=== PATIENT | female | born 1960 | race Two or more races ===

== ENCOUNTER 2016-10-03 16:42 | Inpatient (IN) | payer MEDICAID ==
[~2016-10-03] VITALS: Ht 157.5 cm; Wt 69.3 kg
[2016-10-03 17:19] LABS: Basophils # (auto) 0 uL; Basophils % (auto) 0.3 % (0.0-2.0); Eosinophils # (auto) 0.2 uL; Eosinophils % (auto) 2.3 % (0.0-7.0); Hematocrit 38.7 % (36.0-46.0); Hemoglobin 13.4 g/dL (12.2-16.2); Lymphocytes # (auto) 3.1 uL; Lymphocytes % (auto) 33.9 % (10.0-50.0); Mean Corpuscular Hemoglobin 29.5 pg (28.0-32.0); Mean Corpuscular Hgb Conc. 34.6 g/dL (32.0-36.0); Mean Corpuscular Volume 85.1 fL (80.0-100.0); Mean Platelet Volume 9.3 fL (7.4-10.4); Monocytes # (auto) 0.5 uL; Neutrophils # (auto) 5.4 uL; Neutrophils % (auto) 58.5 % (37.0-80.0); Platelet Count (auto) 217 10^3/uL (140-450); Red Cell Distribution Width 12.9 % (11.6-16.0); White Blood Cell 9.3 10^3/uL (4.4-10.8)
[2016-10-03 17:39] LABS: Albumin 3.7 g/dL (3.4-5.0); Anion Gap 11 (5-15); Aspartate Aminotransferase 8 U/L (15-37); BUN/Creatinine Ratio 20.4; Blood Urea Nitrogen 10 mg/dL (7-18); Calcium 8.8 mg/dL (8.5-10.1); Carbon Dioxide 24 mmol/L (21-32); Chloride 102 mmol/L (98-107); GFR African American 169 mL/min; GFR Non-African American 139 mL/min; Glucose 283 mg/dL (74-106); Potassium 3.7 mmol/L (3.5-5.1); Sodium 137 mmol/L (136-145)
[2016-10-03 17:43] LABS: Alkaline Phosphatase 123 U/L (45-117); Bilirubin, Total 0.6 mg/dL (0.2-1.0); Total Protein 7.3 g/dL (6.4-8.2)
[2016-10-03] MEDS ORDERED: ACETAMINOPHEN 325 MG TAB PO PRN (23:30)
[2016-10-03] MEDS ORDERED: DEXTROSE (50%) 50ML SYRG IV PRN (23:30)
[2016-10-03] MEDS ORDERED: MORPHINE SULF INJ 2 MG/ML SYRINGE 1ML IV PRN (23:30)
[2016-10-03] MEDS ORDERED: NITROGLYCERIN 0.4 MG SL TAB SL PRN (23:30)
[2016-10-03 23:55] VITALS: BP 142/69
[2016-10-04] MEDS: ACCU-CHEK COMFORT CURVE STRIP VI SCH ×5 (00:17→23:33)
[2016-10-04] MEDS: HYDROcodone-ACET 5/325MG TAB PO PRN ×2 (00:47→21:18)
[2016-10-04] MEDS: TEMAZEPAM 15 MG CAP PO PRN ×2 (01:12→23:10)
[2016-10-04 02:35] VITALS: BP 142/69
[2016-10-04] MEDS ORDERED: METF-312 PO (02:43)
[2016-10-04] MEDS ORDERED: ASPI81TA27 PO (02:43)
[2016-10-04] MEDS ORDERED: GLYB5TAB8 PO (02:43)
[2016-10-04] MEDS ORDERED: SIMV-8 PO (02:43)
[2016-10-04] MEDS ORDERED: LISI-275 PO (02:43)
[2016-10-04 04:27] VITALS: BP 117/59
[2016-10-04] MEDS: InsuLIN REG 1unit/0.01ml Soln (100units/ml) SC SCH ×5 (06:00→23:33)
[2016-10-04 06:24] LABS: Basophils # (auto) 0 uL; Basophils % (auto) 0.3 % (0.0-2.0); Eosinophils # (auto) 0.2 uL; Eosinophils % (auto) 2.8 % (0.0-7.0); Hematocrit 38.9 % (36.0-46.0); Hemoglobin 13.5 g/dL (12.2-16.2); Lymphocytes # (auto) 3.3 uL; Lymphocytes % (auto) 37.4 % (10.0-50.0); Mean Corpuscular Hemoglobin 29.7 pg (28.0-32.0); Mean Corpuscular Hgb Conc. 34.7 g/dL (32.0-36.0); Mean Corpuscular Volume 85.6 fL (80.0-100.0); Monocytes # (auto) 0.5 uL; Monocytes % (auto) 6.2 % (0.0-12.0); Neutrophils # (auto) 4.7 uL; Neutrophils % (auto) 53.3 % (37.0-80.0); Platelet Count (auto) 215 10^3/uL (140-450); White Blood Cell 8.8 10^3/uL (4.4-10.8)
[2016-10-04] MEDS ORDERED: glyBURIDE 5 MG TAB PO SCH (07:00)
[2016-10-04 07:05] LABS: Albumin 3.4 g/dL (3.4-5.0); Alkaline Phosphatase 103 U/L (45-117); Anion Gap 9 (5-15); Aspartate Aminotransferase 12 U/L (15-37); BUN/Creatinine Ratio 25.9; Bilirubin, Total 0.4 mg/dL (0.2-1.0); Blood Urea Nitrogen 15 mg/dL (7-18); Calcium 8.8 mg/dL (8.5-10.1); Carbon Dioxide 28 mmol/L (21-32); Chloride 104 mmol/L (98-107); GFR African American 139 mL/min; GFR Non-African American 115 mL/min; Glucose 270 mg/dL (74-106); Potassium 3.6 mmol/L (3.5-5.1); Sodium 141 mmol/L (136-145)
[2016-10-04 08:50] VITALS: BP 118/64
[2016-10-04] MEDS: FAMOTIDINE 20 MG TAB PO SCH ×2 (09:24→21:37)
[2016-10-04] MEDS: LISINOPRIL 5 MG TAB PO SCH (09:25)
[2016-10-04] MEDS ORDERED: ASPirin 81 mg TAB PO SCH (10:00)
[2016-10-04] MEDS ORDERED: ENOXAPARIN SOD 40 MG/0.4 ML SYRINGE SC SCH (10:00)
[2016-10-04 11:37] LABS: Cholesterol 195 mg/dL (<200); HDL Cholesterol 49 mg/dL (40-59); LDL Cholesterol 121 mg/dL (<100); Triglycerides 216 mg/dL (<150)
[2016-10-04 12:23] VITALS: BP 119/69
[2016-10-04 16:47] VITALS: BP 103/64
[2016-10-04] MEDS ORDERED: metFORMIN HYDROCHLORIDE 500 MG TAB PO SCH (18:00)
[2016-10-04] MEDS: glyBURIDE 5 MG TAB PO SCH (18:30)
[2016-10-04 21:30] VITALS: BP 100/61
[2016-10-04] MEDS: PRAVASTATIN SODIUM 20 MG TAB PO SCH (21:37)
[2016-10-04] MEDS ORDERED: PATIENTS OWN MEDICATION (simvastatin 20 MG) PO SCH ×2 (22:00)
[2016-10-05] VITALS (8 sets, daily range): BP systolic 104–155; BP diastolic 50–88
[2016-10-05 05:46] LABS: Basophils # (auto) 0 uL; Basophils % (auto) 0.3 % (0.0-2.0); Eosinophils # (auto) 0.3 uL; Eosinophils % (auto) 3.6 % (0.0-7.0); Hematocrit 39.8 % (36.0-46.0); Hemoglobin 13.4 g/dL (12.2-16.2); Lymphocytes # (auto) 3.4 uL; Lymphocytes % (auto) 38.8 % (10.0-50.0); Mean Corpuscular Hemoglobin 29.3 pg (28.0-32.0); Mean Corpuscular Hgb Conc. 33.7 g/dL (32.0-36.0); Mean Corpuscular Volume 86.8 fL (80.0-100.0); Mean Platelet Volume 9.5 fL (7.4-10.4); Monocytes # (auto) 0.6 uL; Monocytes % (auto) 6.9 % (0.0-12.0); Neutrophils # (auto) 4.4 uL; Neutrophils % (auto) 50.4 % (37.0-80.0); Platelet Count (auto) 216 10^3/uL (140-450); Red Cell Distribution Width 13.2 % (11.6-16.0); White Blood Cell 8.7 10^3/uL (4.4-10.8)
[2016-10-05] MEDS: ACCU-CHEK COMFORT CURVE STRIP VI SCH ×3 (05:49→18:23)
[2016-10-05] MEDS: InsuLIN REG 1unit/0.01ml Soln (100units/ml) SC SCH ×3 (05:49→18:00)
[2016-10-05] MEDS: glyBURIDE 5 MG TAB PO SCH ×2 (06:04→18:23)
[2016-10-05 06:11] LABS: Potassium 3.5 mmol/L (3.5-5.1)
[2016-10-05 06:18] LABS: Albumin 3.4 g/dL (3.4-5.0); Calcium 9.1 mg/dL (8.5-10.1); Magnesium 2.2 mg/dL (1.6-2.6)
[2016-10-05 06:21] LABS: Bilirubin, Total 0.4 mg/dL (0.2-1.0); Total Protein 6.8 g/dL (6.4-8.2)
[2016-10-05] MEDS ORDERED: IOHEXOL 350 MG/ML 100ML IJ ONE (08:56)
[2016-10-05] MEDS ORDERED: METOPROLOL TARTRATE 1MG/1ML-5ML VIAL IV ONE ×2 (09:31→09:37)
[2016-10-05] MEDS ORDERED: NITROGLYCERIN 0.4 MG SL TAB SL ONE (09:31)
[2016-10-05] MEDS: FAMOTIDINE 20 MG TAB PO SCH ×2 (10:58→22:17)
[2016-10-05] MEDS: LISINOPRIL 5 MG TAB PO SCH (10:59)
[2016-10-05] MEDS ORDERED: POTASSIUM CHL 20 Meq TABLET PO ONE (11:45)
[2016-10-05] MEDS: HYDROcodone-ACET 5/325MG TAB PO PRN (14:04)
[2016-10-05] MEDS ORDERED: HYDROmorphone HCL 2 MG/ML VL IV PRN (16:30)
[2016-10-05] MEDS: ONDANSETRON HCL 4 MG/2 ML VIAL IV PRN (18:23)
[2016-10-05] MEDS ORDERED: ASPirin 81 mg TAB PO ONE (19:00)
[2016-10-05] MEDS ORDERED: METOPROLOL SUCCINATE XL 50 MG TAB PO ONE (19:00)
[2016-10-05] MEDS: PRAVASTATIN SODIUM 20 MG TAB PO SCH (22:17)
[2016-10-06] MEDS: InsuLIN REG 1unit/0.01ml Soln (100units/ml) SC SCH ×4 (00:22→18:00)
[2016-10-06] MEDS: ACCU-CHEK COMFORT CURVE STRIP VI SCH ×4 (00:22→17:59)
[2016-10-06 05:28] VITALS: BP 111/54
[2016-10-06 05:41] LABS: Basophils # (auto) 0 uL; Basophils % (auto) 0.3 % (0.0-2.0); Eosinophils # (auto) 0.1 uL; Eosinophils % (auto) 0.5 % (0.0-7.0); Lymphocytes # (auto) 2.6 uL; Lymphocytes % (auto) 23.3 % (10.0-50.0); Mean Corpuscular Hemoglobin 29.6 pg (28.0-32.0); Mean Corpuscular Hgb Conc. 34.3 g/dL (32.0-36.0); Mean Corpuscular Volume 86.3 fL (80.0-100.0); Mean Platelet Volume 9.5 fL (7.4-10.4); Monocytes # (auto) 0.5 uL; Monocytes % (auto) 4.7 % (0.0-12.0); Neutrophils # (auto) 7.8 uL; Neutrophils % (auto) 71.2 % (37.0-80.0); Platelet Count (auto) 227 10^3/uL (140-450)
[2016-10-06 06:04] LABS: Albumin 3.2 g/dL (3.4-5.0); Calcium 9.1 mg/dL (8.5-10.1); Potassium 3.9 mmol/L (3.5-5.1)
[2016-10-06 06:07] LABS: BUN/Creatinine Ratio 38.7; Magnesium 2.3 mg/dL (1.6-2.6)
[2016-10-06 06:09] LABS: Bilirubin, Total 0.4 mg/dL (0.2-1.0); Total Protein 6.6 g/dL (6.4-8.2)
[2016-10-06] MEDS: glyBURIDE 5 MG TAB PO SCH (06:22)
[2016-10-06 08:00] VITALS: BP 131/59
[2016-10-06 08:43] VITALS: BP 131/59
[2016-10-06] MEDS: ONDANSETRON HCL 4 MG/2 ML VIAL IV PRN ×2 (08:59→14:42)
[2016-10-06] MEDS: HYDROcodone-ACET 5/325MG TAB PO PRN ×2 (09:00→14:42)
[2016-10-06] MEDS ORDERED: METOPROLOL SUCCINATE XL 50 MG TAB PO SCH (10:00)
[2016-10-06] MEDS ORDERED: ASPirin 81 mg TAB PO SCH (10:00)
[2016-10-06] MEDS: LISINOPRIL 5 MG TAB PO SCH (10:57)
[2016-10-06] MEDS: FAMOTIDINE 20 MG TAB PO SCH (10:59)
[2016-10-06 13:19] VITALS: BP 135/70
[2016-10-06] MEDS: metFORMIN HYDROCHLORIDE 500 MG TAB PO SCH ×2 (14:48→17:57)
[2016-10-06] MEDS ORDERED: TRAM50TA2 PO (15:42)
[2016-10-06 17:27] VITALS: BP 131/59
[2016-10-06 17:31] VITALS: BP 108/54
[2016-10-06] MEDS ORDERED: glyBURIDE 5 MG TAB PO SCH (18:00)
== END 2016-10-06 19:00 | disposition home or self-care (01) | DRG 198 ==
LOC: ER 16:50 → TELE 16:51 → TELE-WESTW 23:41
PROVIDERS: ADMIT Nurse Practitioner; ATTEND Internal Medicine
DX: I25.119 Atherosclerotic heart disease of native coronary artery with unspecified angina pectoris (principal); E11.65 Type 2 diabetes mellitus with hyperglycemia; S82.001A Unspecified fracture of right patella, initial encounter for closed fracture; E78.5 Hyperlipidemia, unspecified; M25.461 Effusion, right knee; W19.XXXA Unspecified fall, initial encounter; Z86.73 Personal history of transient ischemic attack (TIA), and cerebral infarction without residual deficits; Y93.89 Activity, other specified; Y92.89 Other specified places as the place of occurrence of the external cause; Z90.49 Acquired absence of other specified parts of digestive tract
CPT/HCPCS: 36415; 71010; 73560; 73700; 75574; 80053; 80061; 82962; 83036; 83735; 84443; 84484; 85025; 87081; 93005; 93306; 94761; J1815; J2405

== ENCOUNTER 2016-12-05 18:12 | Emergency (ER) | payer MEDICAID ==
[~2016-12-05] VITALS: Ht 157.5 cm; Wt 65.3 kg
[~2016-12-05 18:12] MED LIST: ASPI81TA27 PO; LISI-275 PO; SIMV-8 PO; TRAM50TA2 PO
[2016-12-05 18:32] VITALS: BP 147/50
[2016-12-05] MEDS ORDERED: IBUPROFEN 600 MG TAB PO ONE ×2 (18:34→18:45)
== END 2016-12-05 21:20 | disposition home or self-care (01) ==
LOC: ER 18:21
DX: S86.911A Strain of unspecified muscle(s) and tendon(s) at lower leg level, right leg, initial encounter (principal); E11.9 Type 2 diabetes mellitus without complications; E78.5 Hyperlipidemia, unspecified; W01.0XXA Fall on same level from slipping, tripping and stumbling without subsequent striking against object, initial encounter; Y93.73 Activity, racquet and hand sports; Y99.8 Other external cause status; Y92.89 Other specified places as the place of occurrence of the external cause; Z86.73 Personal history of transient ischemic attack (TIA), and cerebral infarction without residual deficits; Z79.82 Long term (current) use of aspirin
CPT/HCPCS: 29505; 73562

== ENCOUNTER 2017-02-23 16:48 | Emergency (ER) | payer MEDICAID ==
[~2017-02-23] VITALS: Ht 157.5 cm; Wt 66.7 kg
[2017-02-23 17:00] VITALS: BP 145/61
[2017-02-23 17:34] LABS: Basophils # (auto) 0 uL; Basophils % (auto) 0.3 % (0.0-2.0); CONDITION Y; Eosinophils # (auto) 0 uL; Eosinophils % (auto) 0.2 % (0.0-7.0); Hematocrit 42.5 % (36.0-46.0); Hemoglobin 14.8 g/dL (12.2-16.2); Lymphocytes # (auto) 1.5 uL; Lymphocytes % (auto) 15.7 % (10.0-50.0); Mean Corpuscular Hemoglobin 30.4 pg (28.0-32.0); Mean Corpuscular Hgb Conc. 34.7 g/dL (32.0-36.0); Mean Corpuscular Volume 87.4 fL (80.0-100.0); Mean Platelet Volume 9.5 fL (7.4-10.4); Monocytes # (auto) 0.5 uL; Monocytes % (auto) 4.8 % (0.0-12.0); Neutrophils # (auto) 7.7 uL; Platelet Count (auto) 196 10^3/uL (140-450); Red Cell Distribution Width 13.5 % (11.6-16.0); White Blood Cell 9.7 10^3/uL (4.4-10.8)
[2017-02-23 17:55] LABS: Albumin 3.7 g/dL (3.4-5.0); Anion Gap 11 (5-15); Aspartate Aminotransferase 18 U/L (15-37); BUN/Creatinine Ratio 14.5; Blood Urea Nitrogen 11 mg/dL (7-18); Carbon Dioxide 25 mmol/L (21-32); Chloride 100 mmol/L (98-107); GFR African American 102 mL/min; GFR Non-African American 84 mL/min; Glucose 310 mg/dL (74-106); Magnesium 1.7 mg/dL (1.6-2.6); Potassium 3.8 mmol/L (3.5-5.1); Sodium 136 mmol/L (136-145)
[2017-02-23 18:00] LABS: Alkaline Phosphatase 128 U/L (45-117); Bilirubin, Total 0.6 mg/dL (0.2-1.0)
== END 2017-02-23 21:48 | disposition left against medical advice (07) ==
LOC: ER 16:49
DX: M54.5 Low back pain (principal); M54.2 Cervicalgia; Z53.21 Procedure and treatment not carried out due to patient leaving prior to being seen by health care provider
CPT/HCPCS: 36415; 80053; 83735; 84484; 85025

== ENCOUNTER 2017-03-19 11:35 | Emergency (ER) | payer MEDICAID ==
[~2017-03-19] VITALS: Ht 157.5 cm; Wt 64.4 kg
[2017-03-19 12:21] VITALS: BP 147/57
== END 2017-03-19 12:39 | disposition home or self-care (01) ==
LOC: ER 11:35
DX: J20.9 Acute bronchitis, unspecified (principal); J32.0 Chronic maxillary sinusitis; Z86.73 Personal history of transient ischemic attack (TIA), and cerebral infarction without residual deficits; E11.9 Type 2 diabetes mellitus without complications; E78.5 Hyperlipidemia, unspecified; Z79.82 Long term (current) use of aspirin

== ENCOUNTER 2017-07-07 14:05 | Emergency (ER) | payer MEDICAID ==
[~2017-07-07] VITALS: Ht 157.5 cm; Wt 67.1 kg
[2017-07-07 16:46] VITALS: BP 139/49
[2017-07-07] MEDS ORDERED: KETOROLAC TROMETH 60MG/2ML VIAL IM ONE (17:30)
== END 2017-07-07 18:21 | disposition home or self-care (01) ==
LOC: ER 14:05
DX: E11.40 Type 2 diabetes mellitus with diabetic neuropathy, unspecified (principal); E78.5 Hyperlipidemia, unspecified; Z86.73 Personal history of transient ischemic attack (TIA), and cerebral infarction without residual deficits; Z79.82 Long term (current) use of aspirin; Z79.899 Other long term (current) drug therapy
CPT/HCPCS: 96372; 99283; J1885

== ENCOUNTER 2017-07-18 08:06 | Emergency (ER) | payer MEDICAID ==
[~2017-07-18] VITALS: Ht 157.5 cm; Wt 66.7 kg
[2017-07-18 08:26] VITALS: BP 121/55
[2017-07-18] MEDS ORDERED: KETOROLAC TROMETH 60MG/2ML VIAL IM ONE (08:45)
[2017-07-18] MEDS ORDERED: METHOCARBAMOL 500 MG TAB PO ONE (09:00)
== END 2017-07-18 09:27 | disposition home or self-care (01) ==
LOC: ER 08:06
DX: M47.816 Spondylosis without myelopathy or radiculopathy, lumbar region (principal); E11.9 Type 2 diabetes mellitus without complications; E78.5 Hyperlipidemia, unspecified; Z86.73 Personal history of transient ischemic attack (TIA), and cerebral infarction without residual deficits; Z79.82 Long term (current) use of aspirin
CPT/HCPCS: 72131; 96372; 99284; J1885

== ENCOUNTER 2017-09-24 00:13 | Inpatient (IN) | payer MEDICAID ==
[~2017-09-24] VITALS: Ht 157.5 cm; Wt 69.9 kg
[2017-09-24 01:20] LABS: Basophils # (auto) 0.1 uL; Basophils % (auto) 0.5 % (0.0-2.0); Eosinophils # (auto) 0.2 uL; Eosinophils % (auto) 1.8 % (0.0-7.0); Hematocrit 40.7 % (36.0-46.0); Hemoglobin 14.1 g/dL (12.2-16.2); Lymphocytes # (auto) 4.6 uL; Lymphocytes % (auto) 37.7 % (10.0-50.0); Mean Corpuscular Hemoglobin 29.7 pg (28.0-32.0); Mean Corpuscular Hgb Conc. 34.7 g/dL (32.0-36.0); Mean Corpuscular Volume 85.5 fL (80.0-100.0); Monocytes # (auto) 0.6 uL; Monocytes % (auto) 5.3 % (0.0-12.0); Neutrophils # (auto) 6.6 uL; Neutrophils % (auto) 54.7 % (37.0-80.0); Nucleated Red Blood Cells % 0.2 %; Platelet Count (auto) 249 10^3/uL (140-450); Red Blood Cells 4.76 10^6/uL (4.0-5.20); Red Cell Distribution Width 13.3 % (11.8-14.3); White Blood Cell 12.1 10^3/uL (4.4-10.8)
[2017-09-24 01:37] LABS: INR 0.83 (0.9-1.15); Partial Thromboplastin Time 27.1 sec (22.64-33.71)
[2017-09-24 01:51] LABS: Albumin 4.1 g/dL (3.4-5.0); Anion Gap 11 (5-15); Blood Urea Nitrogen 19 mg/dL (7-18); Calcium 9.5 mg/dL (8.5-10.1); Carbon Dioxide 24 mmol/L (21-32); Chloride 100 mmol/L (98-107); Glucose 314 mg/dL (74-106); Magnesium 1.9 mg/dL (1.6-2.6); Potassium 3.8 mmol/L (3.5-5.1); Sodium 135 mmol/L (136-145)
[2017-09-24 01:54] LABS: Alanine Aminotransferase 20 U/L (13-56); Aspartate Aminotransferase 10 U/L (15-37); BUN/Creatinine Ratio 18.6; GFR African American 72 mL/min; GFR Non-African American 60 mL/min
[2017-09-24 02:08] LABS: Alkaline Phosphatase 114 U/L (45-117); Bilirubin, Total 0.4 mg/dL (0.2-1.0); Total Protein 8.1 g/dL (6.4-8.2)
[2017-09-24] MEDS ORDERED: SODIUM CHLORIDE 0.9% 1,000 ML IV ONE (07:39)
[2017-09-24] MEDS ORDERED: NITROGLYCERIN 0.4 MG SL TAB SL ONE (08:15)
[2017-09-24 09:02] LABS: Magnesium 2.2 mg/dL (1.6-2.6)
[2017-09-24] MEDS ORDERED: DEXTROSE (50%) 50ML SYRG IV PRN ×2 (11:15)
[2017-09-24] MEDS ORDERED: PROMETHAZINE HCL 25 MG/ML 1ML IV PRN (11:15)
[2017-09-24] MEDS ORDERED: TEMAZEPAM 15 MG CAP PO PRN (11:15)
[2017-09-24] MEDS ORDERED: LORazepam 0.5 MG TAB PO PRN (11:15)
[2017-09-24] MEDS ORDERED: LACTULOSE 20Gm/30ML SOLN PO PRN (11:15)
[2017-09-24] MEDS ORDERED: ACETAMINOPHEN 500 MG TAB PO PRN (11:15)
[2017-09-24] MEDS ORDERED: NITROGLYCERIN 0.4 MG SL TAB SL PRN (11:15)
[2017-09-24] MEDS ORDERED: MORPHINE SULFATE 4 MG/ML SYR/VIAL IV PRN (11:15)
[2017-09-24] MEDS ORDERED: HYDROcodone-ACET 5/325MG TAB PO PRN (11:15)
[2017-09-24] MEDS: SODIUM CHLORIDE 0.9% 1,000 ML IV SCH (11:26)
[2017-09-24 11:42] LABS: Alcohol, Urine < 3.0 mg/dL (0-5); Amphetamine Screen, Urine NEGATIVE (NEGATIVE); Barbiturate Scree,Urine NEGATIVE (NEGATIVE); Benzodiazephine Screen, Urine NEGATIVE (NEGATIVE); Cannabinoid Screen, Urine NEGATIVE (NEGATIVE); Cocaine Screen, Urine NEGATIVE (NEGATIVE); Opiate Scree,Urine NEGATIVE (NEGATIVE); Phencyclidine Screen, Urine NEGATIVE (NEGATIVE)
[2017-09-24] MEDS: METOPROLOL TARTRATE 25 MG TAB PO SCH ×2 (11:54→22:16)
[2017-09-24] MEDS: ACCU-CHEK COMFORT CURVE STRIP VI SCH ×3 (11:54→19:57)
[2017-09-24] MEDS: NITROGLYCERIN 0.2MG/HR TOPICAL PATCH TD SCH (11:54)
[2017-09-24] MEDS: LISINOPRIL 5 MG TAB PO SCH (11:55)
[2017-09-24] MEDS: ATORVASTATIN 20 MG TAB PO SCH (11:55)
[2017-09-24] MEDS: InsuLIN REG 1unit/0.01ml Soln (100units/ml) SC SCH ×3 (11:58→20:02)
[2017-09-24 13:00] VITALS: BP 143/73
[2017-09-24 13:07] VITALS: BP 127/59
[2017-09-24] MEDS ORDERED: METF-370 PO (13:22)
[2017-09-24 17:00] VITALS: BP 97/49
[2017-09-24] MEDS: MORPHINE SULFATE 4 MG/ML SYR/VIAL IV PRN (19:58)
[2017-09-24 22:00] VITALS: BP 110/65
[2017-09-25] MEDS: ACCU-CHEK COMFORT CURVE STRIP VI SCH ×3 (00:02→08:21)
[2017-09-25] MEDS: SODIUM CHLORIDE 0.9% 1,000 ML IV SCH (00:22)
[2017-09-25] MEDS: InsuLIN REG 1unit/0.01ml Soln (100units/ml) SC SCH ×3 (04:32→08:22)
[2017-09-25 05:00] VITALS: BP 123/70
[2017-09-25 08:00] VITALS: BP 130/65
[2017-09-25 08:06] LABS: Basophils # (auto) 0 uL; Basophils % (auto) 0.2 % (0.0-2.0); Eosinophils # (auto) 0.2 uL; Eosinophils % (auto) 2.8 % (0.0-7.0); Hematocrit 34.4 % (36.0-46.0); Hemoglobin 12.1 g/dL (12.2-16.2); Lymphocytes # (auto) 3.8 uL; Lymphocytes % (auto) 46.8 % (10.0-50.0); Mean Corpuscular Hemoglobin 29.9 pg (28.0-32.0); Mean Corpuscular Hgb Conc. 35.2 g/dL (32.0-36.0); Mean Corpuscular Volume 84.9 fL (80.0-100.0); Monocytes # (auto) 0.4 uL; Monocytes % (auto) 5.4 % (0.0-12.0); Neutrophils # (auto) 3.6 uL; Neutrophils % (auto) 44.8 % (37.0-80.0); Nucleated Red Blood Cells % 0.1 %; Platelet Count (auto) 187 10^3/uL (140-450); Red Blood Cells 4.04 10^6/uL (4.0-5.20); Red Cell Distribution Width 13.3 % (11.8-14.3); White Blood Cell 8.1 10^3/uL (4.4-10.8)
[2017-09-25] MEDS: MORPHINE SULFATE 4 MG/ML SYR/VIAL IV PRN (08:30)
[2017-09-25 08:50] VITALS: BP 130/65
[2017-09-25 08:50] LABS: Albumin 3.2 g/dL (3.4-5.0); BUN/Creatinine Ratio 35.6; Bilirubin, Total 0.3 mg/dL (0.2-1.0); Calcium 8.9 mg/dL (8.5-10.1); Potassium 3.8 mmol/L (3.5-5.1); Total Protein 6.5 g/dL (6.4-8.2)
[2017-09-25] MEDS ORDERED: glipiZIDE 5 MG TAB PO SCH (09:45)
[2017-09-25] MEDS ORDERED: GLIP-116 PO (09:47)
[2017-09-25] MEDS ORDERED: ENOXAPARIN SOD 40 MG/0.4 ML SYRINGE SC SCH (10:00)
[2017-09-25] MEDS: METOPROLOL TARTRATE 25 MG TAB PO SCH ×2 (10:00→10:06)
[2017-09-25] MEDS ORDERED: ASPirin-EC 81 mg tab PO SCH (10:00)
[2017-09-25] MEDS: NITROGLYCERIN 0.2MG/HR TOPICAL PATCH TD SCH (10:00)
[2017-09-25] MEDS: ATORVASTATIN 20 MG TAB PO SCH (10:00)
[2017-09-25] MEDS: LISINOPRIL 5 MG TAB PO SCH (10:07)
[2017-09-25 10:56] VITALS: BP 130/65
[2017-09-25 11:00] VITALS: BP 117/55
== END 2017-09-25 13:10 | disposition home or self-care (01) | DRG 351 ==
LOC: ER 00:13 → TELE-DOU 00:14 → TELE-EAST 12:10
PROVIDERS: ADMIT Internal Medicine; ATTEND Internal Medicine
DX: M79.1 Myalgia (principal); E11.65 Type 2 diabetes mellitus with hyperglycemia; M25.512 Pain in left shoulder; D72.829 Elevated white blood cell count, unspecified; E66.3 Overweight; K59.00 Constipation, unspecified; F41.9 Anxiety disorder, unspecified; G47.00 Insomnia, unspecified; E78.5 Hyperlipidemia, unspecified; M54.9 Dorsalgia, unspecified; M25.511 Pain in right shoulder; Z68.28 Body mass index [BMI] 28.0-28.9, adult; Z82.3 Family history of stroke; Z82.49 Family history of ischemic heart disease and other diseases of the circulatory system; Z83.3 Family history of diabetes mellitus; Z86.73 Personal history of transient ischemic attack (TIA), and cerebral infarction without residual deficits; Z79.899 Other long term (current) drug therapy; Z90.49 Acquired absence of other specified parts of digestive tract
CPT/HCPCS: 36415; 71046; 80053; 80061; 80307; 82550; 82962; 83036; 83735; 84443; 84484; 85025; 85379; 85610; 85652; 85730; 86141; 93005; 94761; 96372; J1815

== ENCOUNTER 2018-03-12 21:15 | Inpatient (IN) | payer MEDICAID ==
[~2018-03-12] VITALS: Ht 157.5 cm; Wt 67.5 kg
[~2018-03-12 21:15] MED LIST changes: +GLIP-116 PO; +METF-370 PO
[2018-03-12] MEDS ORDERED: IOHEXOL 350 MG/ML 100ML IJ ONE (21:53)
[2018-03-12 22:10] LABS: Basophils # (auto) 0 uL; Basophils % (auto) 0.4 % (0.0-2.0); Eosinophils # (auto) 0.1 uL; Eosinophils % (auto) 1.4 % (0.0-7.0); Hematocrit 42.5 % (36.0-46.0); Hemoglobin 14.6 g/dL (12.2-16.2); Lymphocytes # (auto) 3.3 uL; Lymphocytes % (auto) 34.4 % (10.0-50.0); Mean Corpuscular Hemoglobin 29.9 pg (28.0-32.0); Mean Corpuscular Hgb Conc. 34.3 g/dL (32.0-36.0); Mean Corpuscular Volume 87.3 fL (80.0-100.0); Monocytes # (auto) 0.4 uL; Monocytes % (auto) 4.2 % (0.0-12.0); Neutrophils # (auto) 5.6 uL; Neutrophils % (auto) 59.6 % (37.0-80.0); Nucleated Red Blood Cells % 0.2 %; Platelet Count (auto) 196 10^3/uL (140-450); Red Blood Cells 4.87 10^6/uL (4.0-5.20); Red Cell Distribution Width 13.4 % (11.8-14.3); White Blood Cell 9.5 10^3/uL (4.4-10.8)
[2018-03-12 22:29] LABS: INR 0.88 (0.9-1.15); Partial Thromboplastin Time 27.8 sec (23.78-33.04); Prothrombin Time 9.5 sec (9.27-12.13)
[2018-03-12 22:37] LABS: Albumin 3.7 g/dL (3.4-5.0); Potassium 4.4 mmol/L (3.5-5.1)
[2018-03-12 22:39] LABS: Bilirubin, Total 0.5 mg/dL (0.2-1.0); Total Protein 7.7 g/dL (6.4-8.2)
[2018-03-12 23:16] LABS: BUN/Creatinine Ratio 25.8
[2018-03-13] MEDS ORDERED: InsuLIN REG 1unit/0.01ml Soln (100units/ml) IV ONE ×2 (00:30)
[2018-03-13] MEDS ORDERED: SODIUM CHLORIDE 0.9% 1,000 ML IV ONE ×2 (00:30→05:00)
[2018-03-13] MEDS ORDERED: IOHEXOL 350 MG/ML 100ML IJ ONE (00:37)
[2018-03-13] MEDS ORDERED: HYDROcodone-ACET 10/325MG TAB PO ONE (00:45)
[2018-03-13] MEDS ORDERED: metFORMIN HYDROCHLORIDE 500 MG TAB PO ONE (03:45)
[2018-03-13] MEDS ORDERED: ONDANSETRON HCL 4 MG/2 ML VIAL IV PRN (05:00)
[2018-03-13] MEDS ORDERED: INSULIN LANTUS (GLARGINE) 1 /0.01ml (100units/ml) SC SCH (05:00)
[2018-03-13] MEDS ORDERED: HYDROcodone-ACET 5/325MG TAB PO PRN (05:00)
[2018-03-13] MEDS ORDERED: DEXTROSE (50%) 50ML SYRG IV PRN ×2 (05:00→10:15)
[2018-03-13] MEDS ORDERED: ACETAMINOPHEN 500 MG TAB PO PRN (05:00)
[2018-03-13] MEDS ORDERED: INSULIN LANTUS (GLARGINE) 1 /0.01ml (100units/ml) SC ONE (05:15)
[2018-03-13] MEDS ORDERED: glipiZIDE 5 MG TAB PO SCH (07:00)
[2018-03-13] MEDS ORDERED: SODIUM CHLORIDE 0.9% 1,000 ML IV SCH (07:45)
[2018-03-13 07:55] LABS: Basophils # (auto) 0 uL; Basophils % (auto) 0.2 % (0.0-2.0); Eosinophils # (auto) 0.2 uL; Hematocrit 38.3 % (36.0-46.0); Hemoglobin 13.2 g/dL (12.2-16.2); Lymphocytes # (auto) 3.5 uL; Lymphocytes % (auto) 44.4 % (10.0-50.0); Mean Corpuscular Hemoglobin 29.6 pg (28.0-32.0); Mean Corpuscular Hgb Conc. 34.5 g/dL (32.0-36.0); Mean Corpuscular Volume 85.8 fL (80.0-100.0); Monocytes # (auto) 0.4 uL; Monocytes % (auto) 5.5 % (0.0-12.0); Neutrophils # (auto) 3.7 uL; Neutrophils % (auto) 46.9 % (37.0-80.0); Platelet Count (auto) 154 10^3/uL (140-450); Red Blood Cells 4.46 10^6/uL (4.0-5.20); Red Cell Distribution Width 13.3 % (11.8-14.3); White Blood Cell 7.8 10^3/uL (4.4-10.8)
[2018-03-13 08:09] LABS: Potassium 3.5 mmol/L (3.5-5.1)
[2018-03-13 08:10] LABS: INR 0.92 (0.9-1.15); Partial Thromboplastin Time 28.9 sec (23.78-33.04); Prothrombin Time 9.9 sec (9.27-12.13)
[2018-03-13] MEDS ORDERED: GLYB5TAB8 PO (08:57)
[2018-03-13 09:00] VITALS: BP 158/84
[2018-03-13] MEDS ORDERED: LISINOPRIL 5 MG TAB PO SCH ×2 (10:00)
[2018-03-13] MEDS ORDERED: ASPirin-EC 81 mg tab PO SCH ×2 (10:00)
[2018-03-13] MEDS ORDERED: GABAPENTIN 100 MG CAP PO SCH (10:00)
[2018-03-13] MEDS ORDERED: LISINOPRIL 5 MG TAB PO ONE (10:30)
[2018-03-13] MEDS ORDERED: InsuLIN REG 1unit/0.01ml Soln (100units/ml) SC SCH ×2 (11:30→22:00)
[2018-03-13] MEDS ORDERED: ACCU-CHEK COMFORT CURVE STRIP VI SCH (11:30)
[2018-03-13 12:36] VITALS: BP 125/66
[2018-03-13 13:00] VITALS: BP 125/66
[2018-03-14] MEDS ORDERED: LISINOPRIL 20 MG TAB PO SCH (10:00)
== END 2018-03-13 13:55 | disposition home or self-care (01) | DRG 347 ==
LOC: ER 21:18 → OVERFLOW 21:19 → WEST WING 03-13 08:10
PROVIDERS: ADMIT Nurse Practitioner Family; ATTEND Internal Medicine
DX: M51.86 Other intervertebral disc disorders, lumbar region (principal); E11.42 Type 2 diabetes mellitus with diabetic polyneuropathy; E11.65 Type 2 diabetes mellitus with hyperglycemia; G89.29 Other chronic pain; E78.5 Hyperlipidemia, unspecified; I10 Essential (primary) hypertension; N20.0 Calculus of kidney; Z79.82 Long term (current) use of aspirin; Z79.84 Long term (current) use of oral hypoglycemic drugs; Z82.3 Family history of stroke; Z82.49 Family history of ischemic heart disease and other diseases of the circulatory system; Z86.73 Personal history of transient ischemic attack (TIA), and cerebral infarction without residual deficits; Z83.3 Family history of diabetes mellitus; Z88.8 Allergy status to other drugs, medicaments and biological substances; Z90.49 Acquired absence of other specified parts of digestive tract
CPT/HCPCS: 36415; 72131; 75635; 80048; 80053; 82962; 83036; 84550; 85025; 85379; 85610; 85730; 96360; 96361; J1815

== ENCOUNTER 2018-05-08 16:15 | Observation (INO) | payer MEDICAID ==
[~2018-05-08] VITALS: Ht 152.4 cm; Wt 61.2 kg
[~2018-05-08 16:15] MED LIST changes: -LISI-275 PO; -METF-370 PO
[2018-05-08 17:56] LABS: Basophils # (auto) 0 uL; Basophils % (auto) 0.2 % (0.0-2.0); Eosinophils # (auto) 0.2 uL; Eosinophils % (auto) 2.6 % (0.0-7.0); Hematocrit 39.3 % (36.0-46.0); Hemoglobin 13.6 g/dL (12.2-16.2); Lymphocytes # (auto) 2.6 uL; Mean Corpuscular Hemoglobin 30.1 pg (28.0-32.0); Mean Corpuscular Hgb Conc. 34.6 g/dL (32.0-36.0); Monocytes # (auto) 0.4 uL; Monocytes % (auto) 4.8 % (0.0-12.0); Neutrophils % (auto) 60.4 % (37.0-80.0); Platelet Count (auto) 185 10^3/uL (140-450); Red Blood Cells 4.52 10^6/uL (4.0-5.20); Red Cell Distribution Width 13.1 % (11.8-14.3); White Blood Cell 8.3 10^3/uL (4.4-10.8)
[2018-05-08 18:14] LABS: Albumin 3.6 g/dL (3.4-5.0); Anion Gap 9 (5-15); Blood Urea Nitrogen 18 mg/dL (7-18); Calcium 8.9 mg/dL (8.5-10.1); Carbon Dioxide 28 mmol/L (21-32); Chloride 101 mmol/L (98-107); Potassium 3.9 mmol/L (3.5-5.1); Sodium 138 mmol/L (136-145)
[2018-05-08 18:18] LABS: Alanine Aminotransferase 26 U/L (13-56); Aspartate Aminotransferase 17 U/L (15-37); BUN/Creatinine Ratio 26.9; GFR African American 117 mL/min; GFR Non-African American 97 mL/min
[2018-05-08 18:31] LABS: Alkaline Phosphatase 109 U/L (45-117); Bilirubin, Total 0.5 mg/dL (0.2-1.0); Total Protein 7.4 g/dL (6.4-8.2)
[2018-05-08 18:36] LABS: Glucose 445 mg/dL (74-106)
[2018-05-08] MEDS ORDERED: SODIUM CHLORIDE 0.9% 1,000 ML IVB ONE (18:39)
[2018-05-08] MEDS ORDERED: InsuLIN REG 1unit/0.01ml Soln (100units/ml) IV ONE (19:30)
[2018-05-08] MEDS ORDERED: HYDROcodone-ACET 5/325MG TAB PO ONE (20:30)
[2018-05-08 21:17] VITALS: BP 133/55
== END 2018-05-08 22:06 | disposition home or self-care (01) | DRG 420 ==
LOC: ER 16:19 → OVERFLOW 16:20 → ER 22:06
PROVIDERS: ADMIT Family Medicine; ATTEND Family Medicine
DX: E11.65 Type 2 diabetes mellitus with hyperglycemia (principal); E78.5 Hyperlipidemia, unspecified; R51 Headache; Z79.4 Long term (current) use of insulin; Z82.49 Family history of ischemic heart disease and other diseases of the circulatory system
CPT/HCPCS: 36415; 80053; 82150; 82962; 83690; 83735; 84484; 85025; 96374; G0378; J1815

== ENCOUNTER 2018-07-10 17:43 | Emergency (ER) | payer MEDICAID ==
[~2018-07-10] VITALS: Ht 157.5 cm; Wt 65.8 kg
[2018-07-10 22:00] LABS: Basophils # (auto) 0 uL; Basophils % (auto) 0.2 % (0.0-2.0); Eosinophils # (auto) 0.3 uL; Eosinophils % (auto) 2.8 % (0.0-7.0); Hematocrit 40.8 % (36.0-46.0); Hemoglobin 14.1 g/dL (12.2-16.2); Lymphocytes # (auto) 4.5 uL; Lymphocytes % (auto) 44.5 % (10.0-50.0); Mean Corpuscular Hemoglobin 29.7 pg (28.0-32.0); Mean Corpuscular Hgb Conc. 34.6 g/dL (32.0-36.0); Mean Corpuscular Volume 85.7 fL (80.0-100.0); Monocytes # (auto) 0.5 uL; Monocytes % (auto) 5.4 % (0.0-12.0); Neutrophils # (auto) 4.7 uL; Neutrophils % (auto) 47.1 % (37.0-80.0); Platelet Count (auto) 218 10^3/uL (140-450); Red Blood Cells 4.76 10^6/uL (4.0-5.20); Red Cell Distribution Width 13.3 % (11.8-14.3)
[2018-07-10 22:16] LABS: Albumin 4.1 g/dL (3.4-5.0); BUN/Creatinine Ratio 26.9; Calcium 9.6 mg/dL (8.5-10.1); Potassium 3.2 mmol/L (3.5-5.1)
[2018-07-10 22:18] LABS: Bilirubin, Total 0.4 mg/dL (0.2-1.0); Total Protein 8.5 g/dL (6.4-8.2)
[2018-07-10 22:21] LABS: CRP High Sensitivity 0.65 mg/dL (< 0.3)
[2018-07-10] MEDS ORDERED: SODIUM CHLORIDE 0.9% 1,000 ML IVB ONE (22:21)
[2018-07-10] MEDS ORDERED: ONDANSETRON HCL 4 MG/2 ML VIAL IV ONE (22:30)
[2018-07-10 23:22] LABS: Amylase 25 U/L (25-115); Lipase 92 U/L (73-393)
[2018-07-11] MEDS ORDERED: SODIUM CHLORIDE 0.9% 1,000 ML IV ONE (00:45)
[2018-07-11 01:06] LABS: Alanine Aminotransferase 22 U/L (13-56); Albumin 3.1 g/dL (3.4-5.0); Anion Gap 6 (5-15); Aspartate Aminotransferase 16 U/L (15-37); BUN/Creatinine Ratio 27.3; Blood Urea Nitrogen 15 mg/dL (7-18); Calcium 8.2 mg/dL (8.5-10.1); Carbon Dioxide 24 mmol/L (21-32); Chloride 111 mmol/L (98-107); GFR African American 147 mL/min; GFR Non-African American 121 mL/min; Glucose 222 mg/dL (74-106); Potassium 4.1 mmol/L (3.5-5.1); Sodium 141 mmol/L (136-145)
[2018-07-11 01:09] LABS: Alkaline Phosphatase 96 U/L (45-117); Bilirubin, Total 0.3 mg/dL (0.2-1.0); Total Protein 6.6 g/dL (6.4-8.2)
[2018-07-11 02:26] VITALS: BP 159/77
== END 2018-07-11 03:28 | disposition home or self-care (01) ==
LOC: ER 17:43
DX: A08.4 Viral intestinal infection, unspecified (principal); G62.9 Polyneuropathy, unspecified; G44.229 Chronic tension-type headache, not intractable; E88.9 Metabolic disorder, unspecified; E11.9 Type 2 diabetes mellitus without complications; E78.5 Hyperlipidemia, unspecified
CPT/HCPCS: 36415; 80053; 82150; 82553; 82962; 83036; 83690; 83880; 84484; 85025; 86141; 93005; 96361; 96374; 99284; J2405; J7030

== ENCOUNTER 2018-12-26 22:06 | Emergency (ER) | payer MEDICAID ==
[~2018-12-26 22:06] MED LIST changes: +ALBUAER3 IN; +AZIT250T7 PO; +CYCL1TAB18 PO; +GABA300C10 PO; +IBUP600T27 PO; +INS7030I SC; +LISI-646 PO; +MET25T PO; +ROSU10TA16 PO
[2018-12-26 23:01] LABS: Basophils # (auto) 0 uL; Basophils % (auto) 0.2 % (0.0-2.0); Eosinophils # (auto) 0.2 uL; Eosinophils % (auto) 2.2 % (0.0-7.0); Hematocrit 37.2 % (36.0-46.0); Hemoglobin 12.9 g/dL (12.2-16.2); Lymphocytes % (auto) 35.5 % (10.0-50.0); Mean Corpuscular Hemoglobin 29.6 pg (28.0-32.0); Mean Corpuscular Hgb Conc. 34.6 g/dL (32.0-36.0); Mean Corpuscular Volume 85.7 fL (80.0-100.0); Monocytes # (auto) 0.5 uL; Monocytes % (auto) 5.5 % (0.0-12.0); Neutrophils # (auto) 4.8 uL; Neutrophils % (auto) 56.6 % (37.0-80.0); Nucleated Red Blood Cells % 0.1 %; Platelet Count (auto) 189 10^3/uL (140-450); Red Blood Cells 4.34 10^6/uL (4.0-5.20); Red Cell Distribution Width 13.3 % (11.8-14.3); White Blood Cell 8.4 10^3/uL (4.4-10.8)
[2018-12-26 23:12] LABS: Albumin 3.4 g/dL (3.4-5.0); Anion Gap 8 (5-15); Blood Urea Nitrogen 20 mg/dL (7-18); Carbon Dioxide 26 mmol/L (21-32); Chloride 104 mmol/L (98-107); GFR African American 113 mL/min; GFR Non-African American 93 mL/min; Glucose 321 mg/dL (74-106); Potassium 3.8 mmol/L (3.5-5.1); Sodium 138 mmol/L (136-145)
[2018-12-26 23:17] LABS: Alanine Aminotransferase 21 U/L (13-56); Alkaline Phosphatase 139 U/L (45-117); Aspartate Aminotransferase 14 U/L (15-37); Bilirubin, Total 0.1 mg/dL (0.2-1.0); Total Protein 7.3 g/dL (6.4-8.2)
[2018-12-26 23:47] LABS: Urine Bacteria MANY /hpf (None Seen); Urine Blood Negative /uL (Negative); Urine Mucus FEW (None Seen); Urine Specific Gravity 1.018 (1.001-1.035); Urine WBC 82 /hpf (0 - 5)
[2018-12-27] MEDS ORDERED: SODIUM CHLORIDE 0.9% 1,000 ML IV ONE (00:30)
[2018-12-27] MEDS ORDERED: ONDANSETRON HCL 4 MG/2 ML VIAL IV ONE (00:30)
[2018-12-27] MEDS ORDERED: MORPHINE SULFATE 4 MG/ML SYR/VIAL IV ONE (00:30)
[2018-12-27] MEDS ORDERED: InsuLIN REG 1unit/0.01ml Soln (100units/ml) IV ONE (05:45)
[2018-12-27] MEDS ORDERED: cefTRIAXone 1GM/50ML D5W 50 ML IV ONE (05:45)
[2018-12-27 05:50] VITALS: BP 132/64
== END 2018-12-27 07:23 | disposition home or self-care (01) ==
LOC: ER 22:16
DX: N20.0 Calculus of kidney (principal); N39.0 Urinary tract infection, site not specified; E11.65 Type 2 diabetes mellitus with hyperglycemia; I25.10 Atherosclerotic heart disease of native coronary artery without angina pectoris; E78.5 Hyperlipidemia, unspecified; I10 Essential (primary) hypertension; Z79.4 Long term (current) use of insulin; Z79.82 Long term (current) use of aspirin; Z79.899 Other long term (current) drug therapy; Z90.49 Acquired absence of other specified parts of digestive tract
CPT/HCPCS: 36415; 74176; 80053; 81001; 82962; 84484; 85025; 93005; 96361; 96365; 96375; 99284; J0696; J1815; J2270; J2405

== ENCOUNTER 2019-01-21 19:04 | Emergency (ER) | payer MEDICAID ==
[~2019-01-21] VITALS: Ht 157.5 cm; Wt 67.1 kg
[2019-01-21 19:58] VITALS: BP 150/69
[2019-01-21 20:40] LABS: Basophils # (auto) 0 uL; Basophils % (auto) 0.2 % (0.0-2.0); Eosinophils # (auto) 0.2 uL; Hematocrit 40.9 % (36.0-46.0); Hemoglobin 14.2 g/dL (12.2-16.2); Lymphocytes % (auto) 29.2 % (10.0-50.0); Mean Corpuscular Hemoglobin 29.9 pg (28.0-32.0); Mean Corpuscular Hgb Conc. 34.8 g/dL (32.0-36.0); Monocytes # (auto) 0.5 uL; Monocytes % (auto) 4.8 % (0.0-12.0); Neutrophils # (auto) 6.4 uL; Neutrophils % (auto) 63.8 % (37.0-80.0); Nucleated Red Blood Cells % 1.3 %; Platelet Count (auto) 201 10^3/uL (140-450); Red Blood Cells 4.75 10^6/uL (4.0-5.20); Red Cell Distribution Width 13.5 % (11.8-14.3); White Blood Cell 10.1 10^3/uL (4.4-10.8)
[2019-01-21 20:53] LABS: Albumin 3.6 g/dL (3.4-5.0); Anion Gap 8 (5-15); Blood Urea Nitrogen 27 mg/dL (7-18); Calcium 9.2 mg/dL (8.5-10.1); Carbon Dioxide 27 mmol/L (21-32); Chloride 101 mmol/L (98-107); Glucose 330 mg/dL (74-106); Sodium 136 mmol/L (136-145)
[2019-01-21 20:58] LABS: Alanine Aminotransferase 19 U/L (13-56); Alkaline Phosphatase 139 U/L (45-117); Aspartate Aminotransferase 12 U/L (15-37); BUN/Creatinine Ratio 32.5; Bilirubin, Total 0.4 mg/dL (0.2-1.0); GFR African American 91 mL/min; GFR Non-African American 75 mL/min; Total Protein 7.6 g/dL (6.4-8.2)
[2019-01-21 23:48] LABS: Urine Bacteria FEW /hpf (None Seen); Urine Blood Negative /uL (Negative); Urine Mucus FEW (None Seen); Urine Specific Gravity 1.023 (1.001-1.035); Urine WBC 6 /hpf (0 - 5)
== END 2019-01-22 01:08 | disposition left against medical advice (07) ==
LOC: ER 19:06
DX: M79.602 Pain in left arm (principal); R07.9 Chest pain, unspecified; Z53.21 Procedure and treatment not carried out due to patient leaving prior to being seen by health care provider
CPT/HCPCS: 36415; 71046; 80053; 81001; 84484; 85025; 93005

== ENCOUNTER 2019-02-07 20:42 | Emergency (ER) | payer MEDICAID ==
[~2019-02-07] VITALS: Ht 157.5 cm; Wt 67.1 kg
[2019-02-07] MEDS ORDERED: ACETAMINOPHEN 500 MG TAB PO ONE (22:45)
[2019-02-07] MEDS ORDERED: InsuLIN REG 1unit/0.01ml Soln (100units/ml) SC ONE (23:00)
[2019-02-07] MEDS ORDERED: SODIUM CHLORIDE 0.9% 500 ML IV ONE (23:36)
[2019-02-07] MEDS ORDERED: KETOROLAC TROMETH 15 mg/ml 1ML VL IV ONE (23:45)
[2019-02-08] MEDS ORDERED: HYDROcodone-ACET 5/325MG TAB PO ONE (00:30)
[2019-02-08 01:00] LABS: Calcium 8.6 mg/dL (8.5-10.1); Potassium 3.6 mmol/L (3.5-5.1)
[2019-02-08 01:02] LABS: BUN/Creatinine Ratio 28.6
[2019-02-08] MEDS ORDERED: InsuLIN REG 1unit/0.01ml Soln (100units/ml) SC ONE (01:45)
[2019-02-08 04:32] VITALS: BP 146/75
== END 2019-02-08 04:57 | disposition home or self-care (01) ==
LOC: ER 20:44
DX: S76.012A Strain of muscle, fascia and tendon of left hip, initial encounter (principal); S96.912A Strain of unspecified muscle and tendon at ankle and foot level, left foot, initial encounter; E11.9 Type 2 diabetes mellitus without complications; E78.5 Hyperlipidemia, unspecified; I10 Essential (primary) hypertension; I25.10 Atherosclerotic heart disease of native coronary artery without angina pectoris; Z90.49 Acquired absence of other specified parts of digestive tract; Z88.8 Allergy status to other drugs, medicaments and biological substances; Z79.82 Long term (current) use of aspirin; Z79.899 Other long term (current) drug therapy; Z79.4 Long term (current) use of insulin; W01.0XXA Fall on same level from slipping, tripping and stumbling without subsequent striking against object, initial encounter; Y93.89 Activity, other specified; Y99.8 Other external cause status; Y92.89 Other specified places as the place of occurrence of the external cause
CPT/HCPCS: 36415; 73502; 73552; 73590; 73630; 80048; 82962; 94761; 96372; 96374; 99284; J1815; J1885; J7040

== ENCOUNTER 2019-02-17 16:09 | Emergency (ER) | payer MEDICAID ==
[~2019-02-17] VITALS: Ht 157.5 cm; Wt 67.1 kg
[2019-02-17] MEDS ORDERED: TETANUS-DIPTH-ACEL PERTUSSIS 0.5ML SYRG IM ONE (19:15)
[2019-02-17 20:08] VITALS: BP 156/56
== END 2019-02-17 20:18 | disposition home or self-care (01) ==
LOC: ER 16:12
DX: S90.851A Superficial foreign body, right foot, initial encounter (principal); E11.9 Type 2 diabetes mellitus without complications; E78.5 Hyperlipidemia, unspecified; I10 Essential (primary) hypertension; Z23 Encounter for immunization; Z88.8 Allergy status to other drugs, medicaments and biological substances; Z79.2 Long term (current) use of antibiotics; Z79.4 Long term (current) use of insulin; Z79.899 Other long term (current) drug therapy; W22.8XXA Striking against or struck by other objects, initial encounter; Y93.89 Activity, other specified; Y92.89 Other specified places as the place of occurrence of the external cause; Y99.8 Other external cause status
CPT/HCPCS: 28190; 73630; 90471; 90715

== ENCOUNTER 2019-03-19 20:31 | Emergency (ER) | payer MEDICAID ==
[~2019-03-19] VITALS: Ht 157.5 cm; Wt 67.1 kg
[~2019-03-19 20:31] MED LIST changes: -ALBUAER3 IN; +ASPI-404 PO; -ASPI81TA27 PO; -AZIT250T7 PO; -GLIP-116 PO; +GLIP10TA9 PO; -MET25T PO; -SIMV-8 PO
== END 2019-03-20 05:00 | disposition left against medical advice (07) ==
LOC: ER 20:37
DX: R50.9 Fever, unspecified (principal); R05 Cough; R07.0 Pain in throat; Z53.21 Procedure and treatment not carried out due to patient leaving prior to being seen by health care provider

== ENCOUNTER 2019-05-01 11:28 | Inpatient (IN) | payer MEDICAID | END 2019-05-04 14:00 | disposition home or self-care (01) | LOC: ER 11:28 → TELE-WESTW 05-02 10:18 → TELE 11:29 → TELE-WESTW 23:03 | DX: I20.0 Unstable angina (principal); E11.65 Type 2 diabetes mellitus with hyperglycemia; I11.9 Hypertensive heart disease without heart failure; E11.8 Type 2 diabetes mellitus with unspecified complications; N39.0 Urinary tract infection, site not specified; E78.5 Hyperlipidemia, unspecified; F41.9 Anxiety disorder, unspecified ==

== ENCOUNTER 2019-06-10 00:37 | Emergency (ER) | payer MEDICAID ==
[~2019-06-10] VITALS: Ht 157.5 cm; Wt 67.1 kg
[~2019-06-10 00:37] MED LIST changes: +METO25TA36 PO
[2019-06-10] MEDS ORDERED: ACETAMINOPHEN 500 MG TAB PO ONE (02:00)
[2019-06-10] MEDS ORDERED: IBUPROFEN 800 MG TAB PO ONE (02:00)
[2019-06-10 02:54] VITALS: BP 138/44
== END 2019-06-10 03:03 | disposition home or self-care (01) ==
LOC: ER 00:40
DX: S93.601A Unspecified sprain of right foot, initial encounter (principal); S90.811A Abrasion, right foot, initial encounter; E11.9 Type 2 diabetes mellitus without complications; E78.5 Hyperlipidemia, unspecified; I10 Essential (primary) hypertension; Z90.89 Acquired absence of other organs; Z88.8 Allergy status to other drugs, medicaments and biological substances; W22.8XXA Striking against or struck by other objects, initial encounter; Y93.89 Activity, other specified; Y99.8 Other external cause status; Y92.89 Other specified places as the place of occurrence of the external cause
CPT/HCPCS: 73630

== ENCOUNTER 2019-08-26 21:14 | Emergency (ER) | payer MEDICAID ==
[~2019-08-26] VITALS: Ht 157.5 cm; Wt 63.5 kg
[2019-08-26 21:26] VITALS: BP 179/66
[2019-08-26 23:26] LABS: Basophils # (auto) 0 uL; Basophils % (auto) 0.3 % (0.0-2.0); Eosinophils # (auto) 0.2 uL; Eosinophils % (auto) 2.3 % (0.0-7.0); Hematocrit 36.6 % (36.0-46.0); Lymphocytes # (auto) 3.9 uL; Lymphocytes % (auto) 40.5 % (10.0-50.0); Mean Corpuscular Hgb Conc. 35.4 g/dL (32.0-36.0); Mean Corpuscular Volume 84.8 fL (80.0-100.0); Monocytes # (auto) 0.5 uL; Neutrophils % (auto) 51.9 % (37.0-80.0); Nucleated Red Blood Cells % 0.1 %; Platelet Count (auto) 188 10^3/uL (140-450); Red Blood Cells 4.31 10^6/uL (4.0-5.20); Red Cell Distribution Width 12.9 % (11.8-14.3); White Blood Cell 9.7 10^3/uL (4.4-10.8)
[2019-08-26] MEDS ORDERED: InsuLIN REG 1unit/0.01ml Soln (100units/ml) IV ONE (23:45)
[2019-08-26] MEDS ORDERED: SODIUM CHLORIDE 0.9% 1,000 ML IV ONE (23:45)
[2019-08-26 23:47] LABS: Albumin 3.9 g/dL (3.4-5.0); BUN/Creatinine Ratio 26.4; Calcium 9.4 mg/dL (8.5-10.1); Potassium 4.4 mmol/L (3.5-5.1)
[2019-08-26 23:50] LABS: Bilirubin, Total 0.3 mg/dL (0.2-1.0); Total Protein 7.5 g/dL (6.4-8.2)
[2019-08-27] MEDS ORDERED: InsuLIN REG 1unit/0.01ml Soln (100units/ml) SC ONE ×2 (02:00)
[2019-08-27 02:28] LABS: Urine Bacteria MANY /hpf (None Seen); Urine Blood Negative /uL (Negative); Urine Specific Gravity 1.027 (1.001-1.035); Urine WBC 100 /hpf (0 - 5)
== END 2019-08-27 02:59 | disposition home or self-care (01) ==
LOC: ER 21:14
DX: E11.65 Type 2 diabetes mellitus with hyperglycemia (principal); E78.5 Hyperlipidemia, unspecified; I10 Essential (primary) hypertension; Z88.8 Allergy status to other drugs, medicaments and biological substances
CPT/HCPCS: 36415; 71045; 80053; 81001; 82010; 82962; 85025; 93005; 96360; 96372; 99284; J1815; J7030

== ENCOUNTER 2019-09-23 12:11 | Emergency (ER) | payer MEDICAID ==
[~2019-09-23] VITALS: Ht 162.6 cm; Wt 65.8 kg
[2019-09-23 14:26] LABS: Basophils # (auto) 0 uL; Basophils % (auto) 0.3 % (0.0-2.0); Eosinophils # (auto) 0.1 uL; Eosinophils % (auto) 1.4 % (0.0-7.0); Hematocrit 38.7 % (36.0-46.0); Hemoglobin 13.6 g/dL (12.2-16.2); Lymphocytes # (auto) 2.9 uL; Lymphocytes % (auto) 33.9 % (10.0-50.0); Mean Corpuscular Hemoglobin 30.1 pg (28.0-32.0); Mean Corpuscular Hgb Conc. 35.1 g/dL (32.0-36.0); Mean Corpuscular Volume 85.8 fL (80.0-100.0); Monocytes # (auto) 0.5 uL; Monocytes % (auto) 5.3 % (0.0-12.0); Neutrophils # (auto) 5.1 uL; Neutrophils % (auto) 59.1 % (37.0-80.0); Nucleated Red Blood Cells % 0.1 %; Platelet Count (auto) 199 10^3/uL (140-450); Red Blood Cells 4.52 10^6/uL (4.0-5.20); Red Cell Distribution Width 13.3 % (11.8-14.3); White Blood Cell 8.7 10^3/uL (4.4-10.8)
[2019-09-23 14:45] LABS: Anion Gap 4 (5-15); Blood Urea Nitrogen 15 mg/dL (7-18); Calcium 9.5 mg/dL (8.5-10.1); Carbon Dioxide 29 mmol/L (21-32); Chloride 104 mmol/L (98-107); Glucose 251 mg/dL (74-106); Sodium 137 mmol/L (136-145)
[2019-09-23 14:51] LABS: Alanine Aminotransferase 20 U/L (13-56); Alkaline Phosphatase 107 U/L (45-117); Aspartate Aminotransferase 14 U/L (15-37); BUN/Creatinine Ratio 26.3; Bilirubin, Total 0.5 mg/dL (0.2-1.0); GFR African American 140 mL/min; GFR Non-African American 116 mL/min
[2019-09-23 17:15] VITALS: BP 164/50
== END 2019-09-23 17:21 | disposition home or self-care (01) ==
LOC: EDBD 12:11 → ER 12:11
DX: J20.9 Acute bronchitis, unspecified (principal); R51 Headache; E11.65 Type 2 diabetes mellitus with hyperglycemia; E78.5 Hyperlipidemia, unspecified; I10 Essential (primary) hypertension; Z90.89 Acquired absence of other organs
CPT/HCPCS: 36415; 70450; 71046; 80053; 84484; 85025

== ENCOUNTER 2019-12-28 13:59 | Emergency (ER) | payer MEDICAID ==
[~2019-12-28] VITALS: Ht 157.5 cm; Wt 67.1 kg
[~2019-12-28 13:59] MED LIST changes: -ASPI-404 PO; +ASPI-543 PO; +CYCL10TA6 PO; -CYCL1TAB18 PO
[2019-12-28 14:41] VITALS: BP 184/61
[2019-12-28] MEDS ORDERED: KETOROLAC TROMETH 60MG/2ML VIAL IM ONE (15:15)
== END 2019-12-28 15:59 | disposition home or self-care (01) ==
LOC: ER 13:59
DX: S29.012A Strain of muscle and tendon of back wall of thorax, initial encounter (principal); E11.9 Type 2 diabetes mellitus without complications; E78.5 Hyperlipidemia, unspecified; I10 Essential (primary) hypertension; Z88.8 Allergy status to other drugs, medicaments and biological substances; X58.XXXA Exposure to other specified factors, initial encounter; Y93.89 Activity, other specified; Y92.89 Other specified places as the place of occurrence of the external cause; Y99.8 Other external cause status
CPT/HCPCS: 71046; 93005; 96372; 99283; J1885

== ENCOUNTER 2020-01-13 16:24 | Emergency (ER) | payer MEDICAID ==
[~2020-01-13] VITALS: Ht 157.5 cm; Wt 63.5 kg
[~2020-01-13 16:24] MED LIST changes: +ASPI-404 PO; -ASPI-543 PO; -CYCL10TA6 PO; +CYCL1TAB18 PO
[2020-01-13] MEDS ORDERED: SODIUM CHLORIDE 0.9% 1,000 ML IV ONE (16:35)
[2020-01-13 16:45] VITALS: BP 158/75
[2020-01-13] MEDS ORDERED: ASPirin 81 mg TAB PO ONE (16:45)
[2020-01-13 17:08] LABS: Basophils # (auto) 0 10 ^3/uL (0-0.2); Basophils % (auto) 0.2 % (0.0-2.0); Eosinophils # (auto) 0.1 10 ^3/uL (0-0.8); Eosinophils % (auto) 1.6 % (0.0-7.0); Hematocrit 39.8 % (36.0-46.0); Hemoglobin 13.8 g/dL (12.2-16.2); Lymphocytes # (auto) 2.6 10 ^3/uL (0.4-5.4); Lymphocytes % (auto) 28.7 % (10.0-50.0); Mean Corpuscular Hgb Conc. 34.8 g/dL (32.0-36.0); Mean Corpuscular Volume 86.2 fL (80.0-100.0); Monocytes # (auto) 0.4 10 ^3/uL (0-1.3); Monocytes % (auto) 4.7 % (0.0-12.0); Neutrophils # (auto) 5.8 10 ^3/uL (1.6-8.6); Neutrophils % (auto) 64.8 % (37.0-80.0); Nucleated Red Blood Cells % 0.1 %; Platelet Count (auto) 196 10^3/uL (140-450); Red Blood Cells 4.62 10^6/uL (4.0-5.20); Red Cell Distribution Width 13.7 % (11.8-14.3)
[2020-01-13 17:16] LABS: Urine Bacteria NONE SEEN /hpf (None Seen); Urine Blood Negative /uL (Negative); Urine Hyaline Cast FEW /lpf (0 - 2); Urine Specific Gravity 1.031 (1.001-1.035); Urine WBC 6 /hpf (0 - 5)
[2020-01-13 17:20] LABS: INR 0.96 (0.9-1.15); Partial Thromboplastin Time 26.8 sec (23.64-32.05)
[2020-01-13 17:22] LABS: Anion Gap 8 (5-15); Blood Urea Nitrogen 24 mg/dL (7-18); Calcium 9.4 mg/dL (8.5-10.1); Carbon Dioxide 27 mmol/L (21-32); Chloride 99 mmol/L (98-107); Potassium 4.1 mmol/L (3.5-5.1); Sodium 134 mmol/L (136-145)
[2020-01-13 17:27] LABS: Alanine Aminotransferase 21 U/L (13-56); Alkaline Phosphatase 130 U/L (45-117); Aspartate Aminotransferase 9 U/L (15-37); BUN/Creatinine Ratio 28.6; Bilirubin, Total 0.5 mg/dL (0.2-1.0); GFR African American 90 mL/min; GFR Non-African American 74 mL/min; Total Protein 7.3 g/dL (6.4-8.2)
[2020-01-13 17:36] LABS: Glucose 487 mg/dL (74-106)
== END 2020-01-13 23:39 | disposition home or self-care (01) ==
LOC: ER 16:24
DX: I24.9 Acute ischemic heart disease, unspecified (principal); I10 Essential (primary) hypertension; E11.65 Type 2 diabetes mellitus with hyperglycemia; R42 Dizziness and giddiness; E78.5 Hyperlipidemia, unspecified; I25.2 Old myocardial infarction; Z88.8 Allergy status to other drugs, medicaments and biological substances
CPT/HCPCS: 36415; 70450; 71045; 80053; 81001; 82962; 84484; 85025; 85610; 85730; 96360; 96361; 99285; J7030

== ENCOUNTER → 2020-03-22 | Emergency (ER) | payer MEDICAID ==
[~2020-03-22] VITALS: Ht 157.5 cm; Wt 64.4 kg
[~2020-03-22] MED LIST changes: -ASPI-404 PO; +ASPI-543 PO; +CYCL10TA6 PO; -CYCL1TAB18 PO
[2020-03-22 22:03] VITALS: BP 167/56
[2020-03-22 23:05] LABS: Basophils # (auto) 0.1 10 ^3/uL (0-0.2); Basophils % (auto) 0.4 % (0.0-2.0); Eosinophils # (auto) 0.2 10 ^3/uL (0-0.8); Eosinophils % (auto) 1.7 % (0.0-7.0); Hematocrit 39.8 % (36.0-46.0); Hemoglobin 13.6 g/dL (12.2-16.2); Lymphocytes # (auto) 4.4 10 ^3/uL (0.4-5.4); Lymphocytes % (auto) 35.4 % (10.0-50.0); Mean Corpuscular Hemoglobin 29.8 pg (28.0-32.0); Mean Corpuscular Hgb Conc. 34.3 g/dL (32.0-36.0); Monocytes # (auto) 0.6 10 ^3/uL (0-1.3); Monocytes % (auto) 4.8 % (0.0-12.0); Neutrophils # (auto) 7.1 10 ^3/uL (1.6-8.6); Neutrophils % (auto) 57.7 % (37.0-80.0); Nucleated Red Blood Cells % 0.1 %; Platelet Count (auto) 211 10^3/uL (140-450); Red Blood Cells 4.57 10^6/uL (4.0-5.20); Red Cell Distribution Width 14.1 % (11.8-14.3); White Blood Cell 12.3 10^3/uL (4.4-10.8)
[2020-03-22 23:27] LABS: Alanine Aminotransferase 24 U/L (13-56); Albumin 3.8 g/dL (3.4-5.0); Anion Gap 7 (5-15); Aspartate Aminotransferase 19 U/L (15-37); BUN/Creatinine Ratio 24.7; Blood Urea Nitrogen 18 mg/dL (7-18); Calcium 9.4 mg/dL (8.5-10.1); Carbon Dioxide 28 mmol/L (21-32); Chloride 104 mmol/L (98-107); GFR African American 105 mL/min; GFR Non-African American 87 mL/min; Glucose 193 mg/dL (74-106); Sodium 139 mmol/L (136-145)
[2020-03-22 23:31] LABS: Alkaline Phosphatase 123 U/L (45-117); Bilirubin, Total 0.4 mg/dL (0.2-1.0); Total Protein 7.5 g/dL (6.4-8.2)
== END | disposition home or self-care (01) ==
LOC: ER 20:58
DX: R07.9 Chest pain, unspecified (principal); Z53.21 Procedure and treatment not carried out due to patient leaving prior to being seen by health care provider
CPT/HCPCS: 36415; 71045; 80053; 84484; 85025

== ENCOUNTER 2020-04-01 13:57 | Emergency (ER) | payer MEDICAID ==
[~2020-04-01] VITALS: Ht 157.5 cm; Wt 67.1 kg
[2020-04-01 17:33] LABS: Basophils # (auto) 0 10 ^3/uL (0-0.2); Basophils % (auto) 0.3 % (0.0-2.0); Eosinophils # (auto) 0.2 10 ^3/uL (0-0.8); Eosinophils % (auto) 1.4 % (0.0-7.0); Hematocrit 41.9 % (36.0-46.0); Lymphocytes # (auto) 3.7 10 ^3/uL (0.4-5.4); Lymphocytes % (auto) 34.8 % (10.0-50.0); Mean Corpuscular Hemoglobin 29.4 pg (28.0-32.0); Mean Corpuscular Hgb Conc. 33.5 g/dL (32.0-36.0); Mean Corpuscular Volume 87.7 fL (80.0-100.0); Monocytes # (auto) 0.5 10 ^3/uL (0-1.3); Monocytes % (auto) 4.6 % (0.0-12.0); Neutrophils # (auto) 6.3 10 ^3/uL (1.6-8.6); Neutrophils % (auto) 58.9 % (37.0-80.0); Nucleated Red Blood Cells % 0.1 %; Platelet Count (auto) 216 10^3/uL (140-450); Red Blood Cells 4.78 10^6/uL (4.0-5.20); Red Cell Distribution Width 13.6 % (11.8-14.3); White Blood Cell 10.6 10^3/uL (4.4-10.8)
[2020-04-01 17:41] LABS: Anion Gap 5 (5-15); Blood Urea Nitrogen 27 mg/dL (7-18); Calcium 9.4 mg/dL (8.5-10.1); Carbon Dioxide 28 mmol/L (21-32); Chloride 104 mmol/L (98-107); Glucose 311 mg/dL (74-106); Potassium 4.1 mmol/L (3.5-5.1); Sodium 137 mmol/L (136-145)
[2020-04-01 17:46] LABS: Alanine Aminotransferase 18 U/L (13-56); Alkaline Phosphatase 131 U/L (45-117); Aspartate Aminotransferase 8 U/L (15-37); BUN/Creatinine Ratio 36.5; Bilirubin, Total 0.4 mg/dL (0.2-1.0); GFR African American 104 mL/min; GFR Non-African American 86 mL/min; Total Protein 7.8 g/dL (6.4-8.2)
[2020-04-01 21:19] LABS: Urine Bacteria NONE SEEN /hpf (None Seen); Urine Blood Negative /uL (Negative); Urine Mucus FEW (None Seen); Urine Specific Gravity 1.035 (1.001-1.035); Urine WBC 4 /hpf (0 - 5)
[2020-04-02] MEDS ORDERED: MORPHINE SULFATE 4 MG/ML SYR/VIAL IV ONE (01:45)
[2020-04-02] MEDS ORDERED: ONDANSETRON HCL 4 MG/2 ML VIAL IV ONE (01:45)
[2020-04-02] MEDS ORDERED: SODIUM CHLORIDE 0.9% 1,000 ML IV ONE (03:45)
[2020-04-02] MEDS ORDERED: InsuLIN REG 1unit/0.01ml Soln (100units/ml) IV ONE (03:45)
[2020-04-02 08:14] VITALS: BP 129/52
[2020-04-02] MEDS ORDERED: HYDROcodone-ACET 7.5/325MG TAB PO ONE (09:00)
== END 2020-04-02 07:40 | disposition home or self-care (01) ==
LOC: ER 13:57
DX: G89.29 Other chronic pain (principal); M54.5 Low back pain; G62.9 Polyneuropathy, unspecified; M13.88 Other specified arthritis, other site; E11.9 Type 2 diabetes mellitus without complications; E78.5 Hyperlipidemia, unspecified; I10 Essential (primary) hypertension; I25.2 Old myocardial infarction; Z90.89 Acquired absence of other organs
CPT/HCPCS: 36415; 70450; 71046; 72131; 80053; 81001; 82962; 84484; 85025; 93005; 96361; 96374; 96375; 99285; J1815; J2270; J2405; J7030

== ENCOUNTER 2020-06-11 15:36 | Emergency (ER) | payer MEDICAID ==
[~2020-06-11] VITALS: Ht 157.5 cm; Wt 60.8 kg
[2020-06-11 15:50] VITALS: BP 190/69
== END 2020-06-11 17:09 | disposition home or self-care (01) ==
LOC: ER 15:36
DX: S16.1XXA Strain of muscle, fascia and tendon at neck level, initial encounter (principal); R51.9 Headache, unspecified; E11.9 Type 2 diabetes mellitus without complications; E78.5 Hyperlipidemia, unspecified; I10 Essential (primary) hypertension; I25.2 Old myocardial infarction; W18.31XA Fall on same level due to stepping on an object, initial encounter; Y93.89 Activity, other specified; Y92.89 Other specified places as the place of occurrence of the external cause; Y99.8 Other external cause status
CPT/HCPCS: 70450; 72040

== ENCOUNTER 2020-10-28 15:34 | Emergency (ER) | payer MEDICAID ==
[~2020-10-28] VITALS: Ht 157.5 cm; Wt 67.1 kg
[2020-10-28 16:03] VITALS: BP 147/42
== END 2020-10-28 17:39 | disposition home or self-care (01) ==
LOC: ER 15:34
DX: F41.9 Anxiety disorder, unspecified (principal); E11.9 Type 2 diabetes mellitus without complications; I10 Essential (primary) hypertension; E78.5 Hyperlipidemia, unspecified; Z79.82 Long term (current) use of aspirin; Z79.899 Other long term (current) drug therapy; Z90.49 Acquired absence of other specified parts of digestive tract
CPT/HCPCS: 93005

== ENCOUNTER 2020-11-27 23:52 | Emergency (ER) | payer MEDICAID ==
[~2020-11-27] VITALS: Ht 157.5 cm; Wt 63.5 kg
[2020-11-28 00:50] LABS: Basophils # (auto) 0 10 ^3/uL (0-0.2); Basophils % (auto) 0.2 % (0.0-2.0); Eosinophils # (auto) 0.2 10 ^3/uL (0-0.8); Eosinophils % (auto) 1.6 % (0.0-7.0); Hematocrit 37.1 % (36.0-46.0); Hemoglobin 13.3 g/dL (12.2-16.2); Lymphocytes # (auto) 3.8 10 ^3/uL (0.4-5.4); Lymphocytes % (auto) 35.3 % (10.0-50.0); Mean Corpuscular Hemoglobin 30.5 pg (28.0-32.0); Mean Corpuscular Hgb Conc. 35.9 g/dL (32.0-36.0); Mean Corpuscular Volume 84.9 fL (80.0-100.0); Monocytes # (auto) 0.5 10 ^3/uL (0-1.3); Monocytes % (auto) 4.9 % (0.0-12.0); Neutrophils # (auto) 6.2 10 ^3/uL (1.6-8.6); Platelet Count (auto) 207 10^3/uL (140-450); Red Blood Cells 4.36 10^6/uL (4.0-5.20); Red Cell Distribution Width 13.1 % (11.8-14.3); White Blood Cell 10.7 10^3/uL (4.4-10.8)
[2020-11-28 01:09] LABS: Albumin 3.6 g/dL (3.4-5.0); Anion Gap 9 (5-15); Blood Urea Nitrogen 22 mg/dL (7-18); Calcium 9.3 mg/dL (8.5-10.1); Carbon Dioxide 28 mmol/L (21-32); Chloride 98 mmol/L (98-107); Glucose 347 mg/dL (74-106); Sodium 135 mmol/L (136-145)
[2020-11-28 01:11] LABS: Alanine Aminotransferase 19 U/L (13-56); Aspartate Aminotransferase 8 U/L (15-37); BUN/Creatinine Ratio 27.5; GFR African American 94 mL/min; GFR Non-African American 78 mL/min
[2020-11-28 01:17] LABS: Alkaline Phosphatase 123 U/L (45-117); Bilirubin, Total 0.3 mg/dL (0.2-1.0); Total Protein 7.3 g/dL (6.4-8.2)
[2020-11-28 01:24] LABS: INR 0.94 (0.9-1.15); Partial Thromboplastin Time 26.6 sec (23.0-31.2)
[2020-11-28] MEDS ORDERED: IOHEXOL 300 MG/ML 100ML BOTTLE IJ ONE (05:10)
[2020-11-28] MEDS ORDERED: fentaNYL CITRATE 100 MCG/2 ML VL IV ONE (06:00)
[2020-11-28] MEDS ORDERED: SODIUM CHLORIDE 0.9% 1,000 ML IV ONE (06:00)
[2020-11-28] MEDS ORDERED: ONDANSETRON HCL 4 MG/2 ML VIAL IV ONE (06:00)
[2020-11-28 06:05] LABS: Urine Bacteria FEW /hpf (None Seen); Urine Blood Negative /uL (Negative); Urine Mucus FEW (None Seen); Urine Specific Gravity 1.015 (1.001-1.035); Urine WBC 5 /hpf (0 - 5)
[2020-11-28] MEDS ORDERED: cefTRIAXone 1GM/50ML D5W 50 ML IV ONE (06:45)
[2020-11-28 06:56] VITALS: BP 130/38
== END 2020-12-01 07:16 | disposition home or self-care (01) ==
LOC: ER 23:52
DX: N39.0 Urinary tract infection, site not specified (principal); R07.9 Chest pain, unspecified; E11.9 Type 2 diabetes mellitus without complications; E78.5 Hyperlipidemia, unspecified; I10 Essential (primary) hypertension; I25.2 Old myocardial infarction; R06.02 Shortness of breath
CPT/HCPCS: 36415; 71045; 74177; 80053; 81001; 83605; 83690; 83880; 84484; 85025; 85610; 85730; 93005; 96361; 96365; 96375; 99285; J0696; J2405; J3010; J7030; Q9967

== ENCOUNTER 2021-01-06 21:16 | Emergency (ER) | payer MEDICAID ==
[~2021-01-06] VITALS: Ht 157.5 cm; Wt 67.1 kg
[~2021-01-06 21:16] MED LIST changes: -LISI-646 PO; +LISI20TA28 PO
[2021-01-06 23:30] VITALS: BP 184/66
[2021-01-07] MEDS ORDERED: ONDANSETRON ODT 4 MG TAB PO ONE (01:15)
[2021-01-07] MEDS ORDERED: HYDROcodone-ACET 5/325MG TAB PO ONE (01:15)
== END 2021-01-07 01:27 | disposition home or self-care (01) ==
LOC: ER 21:19
DX: S93.601A Unspecified sprain of right foot, initial encounter (principal); M25.551 Pain in right hip; E11.9 Type 2 diabetes mellitus without complications; E78.5 Hyperlipidemia, unspecified; I10 Essential (primary) hypertension; W01.0XXA Fall on same level from slipping, tripping and stumbling without subsequent striking against object, initial encounter; Y93.01 Activity, walking, marching and hiking; Y92.89 Other specified places as the place of occurrence of the external cause; Y99.8 Other external cause status
CPT/HCPCS: 73502; 73630; 99284; Q0162

== ENCOUNTER 2021-01-28 13:35 | Emergency (ER) | payer MEDICAID ==
[~2021-01-28] VITALS: Ht 157.5 cm; Wt 67.1 kg
[2021-01-28] MEDS ORDERED: TAMSULOSIN HYDROCHLORIDE 0.4 MG CAP PO ONE (15:00)
[2021-01-28] MEDS ORDERED: KETOROLAC TROMETH 60MG/2ML VIAL IM ONE (15:00)
[2021-01-28 15:07] LABS: Basophils # (auto) 0.1 10 ^3/uL (0-0.2); Basophils % (auto) 0.6 % (0.0-2.0); Eosinophils # (auto) 0.1 10 ^3/uL (0-0.8); Eosinophils % (auto) 0.7 % (0.0-7.0); Hematocrit 38.6 % (36.0-46.0); Hemoglobin 13.8 g/dL (12.2-16.2); Lymphocytes # (auto) 2.8 10 ^3/uL (0.4-5.4); Lymphocytes % (auto) 24.2 % (10.0-50.0); Mean Corpuscular Hemoglobin 30.3 pg (28.0-32.0); Mean Corpuscular Hgb Conc. 35.7 g/dL (32.0-36.0); Mean Corpuscular Volume 84.9 fL (80.0-100.0); Monocytes # (auto) 0.5 10 ^3/uL (0-1.3); Neutrophils # (auto) 8.1 10 ^3/uL (1.6-8.6); Neutrophils % (auto) 70.5 % (37.0-80.0); Nucleated Red Blood Cells % 0.2 %; Platelet Count (auto) 241 10^3/uL (140-450); Red Blood Cells 4.55 10^6/uL (4.0-5.20); Red Cell Distribution Width 13.3 % (11.8-14.3); White Blood Cell 11.5 10^3/uL (4.4-10.8)
[2021-01-28 15:24] LABS: Albumin 3.7 g/dL (3.4-5.0); Anion Gap 8 (5-15); Blood Urea Nitrogen 15 mg/dL (7-18); Calcium 9.2 mg/dL (8.5-10.1); Carbon Dioxide 25 mmol/L (21-32); Chloride 100 mmol/L (98-107); Glucose 262 mg/dL (74-106); Magnesium 1.9 mg/dL (1.6-2.6); Potassium 4.2 mmol/L (3.5-5.1); Sodium 133 mmol/L (136-145)
[2021-01-28 15:30] LABS: Alanine Aminotransferase 17 U/L (13-56); Alkaline Phosphatase 119 U/L (45-117); Aspartate Aminotransferase 13 U/L (15-37); Bilirubin, Total 0.6 mg/dL (0.2-1.0); GFR African American 102 mL/min; GFR Non-African American 84 mL/min; Total Protein 7.7 g/dL (6.4-8.2)
[2021-01-28 16:53] VITALS: BP 154/57
== END 2021-01-28 16:58 | disposition home or self-care (01) ==
LOC: ER 13:35
DX: N20.0 Calculus of kidney (principal); E11.9 Type 2 diabetes mellitus without complications; E78.5 Hyperlipidemia, unspecified; I10 Essential (primary) hypertension; I25.2 Old myocardial infarction
CPT/HCPCS: 36415; 71045; 74176; 80053; 83735; 84484; 85025; 93005

== ENCOUNTER 2021-02-20 16:54 | Emergency (ER) | payer MEDICAID, OTHER ==
[~2021-02-20] VITALS: Ht 5.1 cm; Wt 67.1 kg
[2021-02-20] MEDS ORDERED: ASPirin 81 mg TAB PO ONE (19:15)
[2021-02-20 19:53] LABS: Basophils # (auto) 0 10 ^3/uL (0-0.2); Basophils % (auto) 0.2 % (0.0-2.0); Eosinophils # (auto) 0.2 10 ^3/uL (0-0.8); Eosinophils % (auto) 2.4 % (0.0-7.0); Hematocrit 34.3 % (36.0-46.0); Hemoglobin 12.5 g/dL (12.2-16.2); Lymphocytes # (auto) 2.9 10 ^3/uL (0.4-5.4); Lymphocytes % (auto) 38.8 % (10.0-50.0); Mean Corpuscular Hemoglobin 31.3 pg (28.0-32.0); Mean Corpuscular Hgb Conc. 36.4 g/dL (32.0-36.0); Monocytes # (auto) 0.4 10 ^3/uL (0-1.3); Monocytes % (auto) 5.2 % (0.0-12.0); Neutrophils % (auto) 53.4 % (37.0-80.0); Red Blood Cells 3.99 10^6/uL (4.0-5.20); Red Cell Distribution Width 13.6 % (11.8-14.3); White Blood Cell 7.4 10^3/uL (4.4-10.8)
[2021-02-20] MEDS ORDERED: LORazepam 2MG/ML-1ML VIAL IV ONE (20:00)
[2021-02-20 20:05] LABS: Albumin 3.3 g/dL (3.4-5.0); Anion Gap 7 (5-15); Blood Urea Nitrogen 15 mg/dL (7-18); Calcium 8.6 mg/dL (8.5-10.1); Carbon Dioxide 27 mmol/L (21-32); Chloride 106 mmol/L (98-107); Glucose 193 mg/dL (74-106); Magnesium 1.9 mg/dL (1.6-2.6); Potassium 4.1 mmol/L (3.5-5.1); Sodium 140 mmol/L (136-145)
[2021-02-20 20:07] LABS: Alanine Aminotransferase 20 U/L (13-56); Aspartate Aminotransferase 11 U/L (15-37); GFR African American 132 mL/min; GFR Non-African American 109 mL/min
[2021-02-20 20:10] LABS: INR 0.92 (0.9-1.15); Partial Thromboplastin Time 27.1 sec (23.0-31.2)
[2021-02-20 20:12] LABS: Alkaline Phosphatase 100 U/L (45-117); Bilirubin, Total 0.3 mg/dL (0.2-1.0)
[2021-02-20] MEDS ORDERED: fentaNYL CITRATE 100 MCG/2 ML VL IV ONE (21:45)
[2021-02-20 21:56] VITALS: BP 142/57
[2021-02-20] MEDS ORDERED: AMOX500T3 PO (22:04)
[2021-02-20] MEDS ORDERED: OMEP-434 PO (22:04)
[2021-02-20] MEDS ORDERED: CLAR1TAB21 PO (22:04)
[2021-02-20] MEDS ORDERED: METF-370 PO (22:07)
== END 2021-02-20 23:05 | disposition home or self-care (01) ==
LOC: ER 16:54 → EDBD 16:54 → EDUNIT# 16:54 → ER 23:05
DX: F41.9 Anxiety disorder, unspecified (principal); M54.9 Dorsalgia, unspecified; R42 Dizziness and giddiness; I10 Essential (primary) hypertension; E11.9 Type 2 diabetes mellitus without complications; E78.5 Hyperlipidemia, unspecified; Z79.82 Long term (current) use of aspirin; Z79.899 Other long term (current) drug therapy; Z88.8 Allergy status to other drugs, medicaments and biological substances; Z20.822 Contact with and (suspected) exposure to COVID-19
CPT/HCPCS: 36415; 71045; 80053; 83735; 83880; 84443; 84484; 85025; 85049; 85379; 85610; 85730; 87426; 93005; 96374; 96375; 99285; J2060; J3010

== ENCOUNTER 2021-05-01 23:15 | Emergency (ER) | payer MEDICAID ==
[~2021-05-01] VITALS: Ht 157.5 cm; Wt 67.1 kg
[~2021-05-01 23:15] MED LIST changes: +AMOX500T3 PO; +CLAR1TAB21 PO; +METF-370 PO; +OMEP-434 PO
[2021-05-02 00:09] LABS: Basophils # (auto) 0 10 ^3/uL (0-0.2); Basophils % (auto) 0.4 % (0.0-2.0); Eosinophils # (auto) 0.1 10 ^3/uL (0-0.8); Eosinophils % (auto) 1.7 % (0.0-7.0); Hematocrit 37.9 % (36.0-46.0); Hemoglobin 13.1 g/dL (12.2-16.2); Lymphocytes # (auto) 3.1 10 ^3/uL (0.4-5.4); Lymphocytes % (auto) 37.8 % (10.0-50.0); Mean Corpuscular Hemoglobin 30.3 pg (28.0-32.0); Mean Corpuscular Hgb Conc. 34.6 g/dL (32.0-36.0); Mean Corpuscular Volume 87.7 fL (80.0-100.0); Monocytes # (auto) 0.4 10 ^3/uL (0-1.3); Monocytes % (auto) 4.7 % (0.0-12.0); Neutrophils # (auto) 4.6 10 ^3/uL (1.6-8.6); Neutrophils % (auto) 55.4 % (37.0-80.0); Nucleated Red Blood Cells % 0.1 %; Red Blood Cells 4.32 10^6/uL (4.0-5.20); Red Cell Distribution Width 12.9 % (11.8-14.3); White Blood Cell 8.3 10^3/uL (4.4-10.8)
[2021-05-02] MEDS ORDERED: hydrALAZINE HCL 20 MG/ML VL IV ONE (01:30)
[2021-05-02] MEDS ORDERED: IBUPROFEN 800 MG TAB PO ONE (02:00)
[2021-05-02 08:04] VITALS: BP 119/46
== END 2021-05-02 09:43 | disposition home or self-care (01) ==
LOC: ER 23:15
DX: I10 Essential (primary) hypertension (principal); R51.9 Headache, unspecified; E11.9 Type 2 diabetes mellitus without complications; E78.5 Hyperlipidemia, unspecified
CPT/HCPCS: 36415; 70450; 84484; 85025; 93005

== ENCOUNTER 2021-07-10 15:20 | Emergency (ER) | payer MEDICAID ==
[~2021-07-10] VITALS: Ht 157.5 cm; Wt 67.1 kg
[~2021-07-10 15:20] MED LIST changes: +CYCL-839 PO; -CYCL10TA6 PO
[2021-07-10 17:36] LABS: Basophils # (auto) 0.1 10 ^3/uL (0-0.2); Basophils % (auto) 0.6 % (0.0-2.0); Eosinophils # (auto) 0.1 10 ^3/uL (0-0.8); Eosinophils % (auto) 1.4 % (0.0-7.0); Hematocrit 35.1 % (36.0-46.0); Hemoglobin 12.3 g/dL (12.2-16.2); Lymphocytes # (auto) 2.5 10 ^3/uL (0.4-5.4); Lymphocytes % (auto) 28.1 % (10.0-50.0); Mean Corpuscular Hemoglobin 29.9 pg (28.0-32.0); Mean Corpuscular Hgb Conc. 35.1 g/dL (32.0-36.0); Mean Corpuscular Volume 85.2 fL (80.0-100.0); Monocytes # (auto) 0.7 10 ^3/uL (0-1.3); Monocytes % (auto) 8.1 % (0.0-12.0); Neutrophils # (auto) 5.4 10 ^3/uL (1.6-8.6); Neutrophils % (auto) 61.8 % (37.0-80.0); Nucleated Red Blood Cells % 0.1 %; Red Blood Cells 4.13 10^6/uL (4.0-5.20); Red Cell Distribution Width 12.8 % (11.8-14.3); White Blood Cell 8.8 10^3/uL (4.4-10.8)
[2021-07-10 17:54] LABS: Albumin 3.4 g/dL (3.4-5.0); Calcium 8.9 mg/dL (8.5-10.1)
[2021-07-10 18:00] LABS: BUN/Creatinine Ratio 34.3; Bilirubin, Total 0.4 mg/dL (0.2-1.0); Total Protein 7.2 g/dL (6.4-8.2)
[2021-07-10 18:08] LABS: INR 0.99 (0.9-1.15); Partial Thromboplastin Time 27.4 sec (23.6-33.0)
[2021-07-10 19:30] VITALS: BP 167/61
== END 2021-07-10 19:53 | disposition home or self-care (01) ==
LOC: ER 15:20
DX: M25.561 Pain in right knee (principal); M25.552 Pain in left hip; E11.9 Type 2 diabetes mellitus without complications; E78.5 Hyperlipidemia, unspecified; I10 Essential (primary) hypertension; M79.18 Myalgia, other site; W18.00XA Striking against unspecified object with subsequent fall, initial encounter; Y93.89 Activity, other specified; Y92.89 Other specified places as the place of occurrence of the external cause; Y99.8 Other external cause status
CPT/HCPCS: 36415; 71250; 72192; 73562; 80053; 84484; 85025; 85610; 85730

== ENCOUNTER 2022-02-11 20:50 | Emergency (ER) | payer MEDICAID, OTHER ==
[~2022-02-11] VITALS: Ht 157.5 cm; Wt 66.8 kg
[2022-02-11] MEDS ORDERED: LABETALOL HCL 5 MG/ML 4ML SYRINGE IV ONE (22:15)
[2022-02-11 22:42] LABS: Basophils # (auto) 0 10 ^3/uL (0-0.2); Basophils % (auto) 0.2 % (0.0-2.0); Eosinophils # (auto) 0.2 10 ^3/uL (0-0.8); Eosinophils % (auto) 1.8 % (0.0-7.0); Hematocrit 38.4 % (36.0-46.0); Hemoglobin 13.1 g/dL (12.2-16.2); Lymphocytes % (auto) 39.7 % (10.0-50.0); Mean Corpuscular Hgb Conc. 34.1 g/dL (32.0-36.0); Mean Corpuscular Volume 84.9 fL (80.0-100.0); Monocytes # (auto) 0.4 10 ^3/uL (0-1.3); Monocytes % (auto) 4.3 % (0.0-12.0); Neutrophils # (auto) 5.4 10 ^3/uL (1.6-8.6); Nucleated Red Blood Cells % 0.1 %; Red Blood Cells 4.53 10^6/uL (4.0-5.20); Red Cell Distribution Width 13.1 % (11.8-14.3); White Blood Cell 10.1 10^3/uL (4.4-10.8)
[2022-02-11 23:04] LABS: Albumin 3.9 g/dL (3.4-5.0); Calcium 9.6 mg/dL (8.5-10.1); Magnesium 1.9 mg/dL (1.6-2.6); Potassium 3.9 mmol/L (3.5-5.1)
[2022-02-11 23:07] LABS: BUN/Creatinine Ratio 20.7; Bilirubin, Total 0.3 mg/dL (0.2-1.0); Total Protein 7.9 g/dL (6.4-8.2)
[2022-02-12] MEDS ORDERED: METOCLOPRAMIDE HCL 5MG/ml INJ 2ml VIAL IV ONE (04:15)
[2022-02-12] MEDS ORDERED: HYDROcodone-ACET 5/325MG TAB PO ONE (04:15)
[2022-02-12] MEDS ORDERED: KETOROLAC TROMETH 30 MG/ML 1ML VIAL IV ONE (06:00)
[2022-02-12] MEDS ORDERED: diphenhdrAMINE HCL 50 MG/1 ML VL IV ONE (06:30)
[2022-02-12 07:02] VITALS: BP 145/63
== END 2022-02-12 07:37 | disposition home or self-care (01) ==
LOC: ER 20:50
DX: R51.9 Headache, unspecified (principal); I10 Essential (primary) hypertension; R00.2 Palpitations; Z20.822 Contact with and (suspected) exposure to COVID-19
CPT/HCPCS: 36415; 70450; 71045; 80053; 82962; 83735; 84484; 85025; 87426; 93005; 96374; 96375; 99285; J1200; J1885; J2765

== ENCOUNTER 2022-03-05 17:31 | Emergency (ER) | payer MEDICAID, OTHER ==
[~2022-03-05] VITALS: Ht 157.5 cm; Wt 64.8 kg
[2022-03-05 18:22] VITALS: BP 171/60
[2022-03-05 19:41] LABS: Basophils # (auto) 0 10 ^3/uL (0-0.2); Basophils % (auto) 0.4 % (0.0-2.0); Eosinophils # (auto) 0.2 10 ^3/uL (0-0.8); Eosinophils % (auto) 1.8 % (0.0-7.0); Hematocrit 36.1 % (36.0-46.0); Hemoglobin 12.7 g/dL (12.2-16.2); Lymphocytes # (auto) 3.4 10 ^3/uL (0.4-5.4); Lymphocytes % (auto) 38.2 % (10.0-50.0); Mean Corpuscular Hemoglobin 29.4 pg (28.0-32.0); Mean Corpuscular Hgb Conc. 35.1 g/dL (32.0-36.0); Mean Corpuscular Volume 83.9 fL (80.0-100.0); Monocytes # (auto) 0.4 10 ^3/uL (0-1.3); Monocytes % (auto) 4.9 % (0.0-12.0); Neutrophils # (auto) 4.9 10 ^3/uL (1.6-8.6); Neutrophils % (auto) 54.7 % (37.0-80.0); Red Blood Cells 4.31 10^6/uL (4.0-5.20); Red Cell Distribution Width 13.5 % (11.8-14.3); White Blood Cell 8.9 10^3/uL (4.4-10.8)
[2022-03-05 19:56] LABS: Albumin 3.7 g/dL (3.4-5.0); BUN/Creatinine Ratio 19.8; Calcium 9.2 mg/dL (8.5-10.1); Potassium 4.6 mmol/L (3.5-5.1)
[2022-03-05 19:59] LABS: Bilirubin, Total 0.4 mg/dL (0.2-1.0); Total Protein 6.7 g/dL (6.4-8.2)
== END 2022-03-05 21:45 | disposition home or self-care (01) ==
LOC: ER 17:31
DX: E11.65 Type 2 diabetes mellitus with hyperglycemia (principal); E78.5 Hyperlipidemia, unspecified; I10 Essential (primary) hypertension; Z88.6 Allergy status to analgesic agent
CPT/HCPCS: 36415; 80053; 85025; 93005

== ENCOUNTER 2022-06-28 15:05 | Emergency (ER) | payer MEDICAID ==
[~2022-06-28] VITALS: Ht 157.5 cm; Wt 60.0 kg
[2022-06-28 18:02] LABS: INR 0.89 (0.9-1.15); Partial Thromboplastin Time 27.2 sec (24.6-33.4)
[2022-06-28 18:04] LABS: Albumin 4.1 g/dL (3.4-5.0); BUN/Creatinine Ratio 33.3; Calcium 10.1 mg/dL (8.5-10.1); Potassium 4.4 mmol/L (3.5-5.1)
[2022-06-28 18:07] LABS: Bilirubin, Total 0.4 mg/dL (0.2-1.0); Total Protein 7.5 g/dL (6.4-8.2)
[2022-06-28 18:27] LABS: Basophils # (auto) 0.2 10 ^3/uL (0-0.2); Basophils % (auto) 1.9 % (0.0-2.0); Eosinophils # (auto) 0.2 10 ^3/uL (0-0.8); Eosinophils % (auto) 1.6 % (0.0-7.0); Hematocrit 39.2 % (36.0-46.0); Hemoglobin 13.5 g/dL (12.2-16.2); Lymphocytes # (auto) 3.1 10 ^3/uL (0.4-5.4); Lymphocytes % (auto) 26.6 % (10.0-50.0); Mean Corpuscular Hemoglobin 29.8 pg (28.0-32.0); Mean Corpuscular Hgb Conc. 34.5 g/dL (32.0-36.0); Mean Corpuscular Volume 86.3 fL (80.0-100.0); Monocytes # (auto) 0.4 10 ^3/uL (0-1.3); Monocytes % (auto) 3.4 % (0.0-12.0); Neutrophils # (auto) 7.8 10 ^3/uL (1.6-8.6); Neutrophils % (auto) 66.5 % (37.0-80.0); Nucleated Red Blood Cells % 0.1 %; Red Blood Cells 4.54 10^6/uL (4.0-5.20); Red Cell Distribution Width 13.5 % (11.8-14.3); White Blood Cell 11.7 10^3/uL (4.4-10.8)
[2022-06-28 22:12] VITALS: BP 146/49
== END 2022-06-28 22:20 | disposition home or self-care (01) ==
LOC: ER 15:05
DX: M25.511 Pain in right shoulder (principal); M79.601 Pain in right arm; M79.10 Myalgia, unspecified site; I10 Essential (primary) hypertension; E11.9 Type 2 diabetes mellitus without complications; E78.5 Hyperlipidemia, unspecified; Z90.49 Acquired absence of other specified parts of digestive tract; Z79.82 Long term (current) use of aspirin; Z79.4 Long term (current) use of insulin; Z79.2 Long term (current) use of antibiotics; Z79.899 Other long term (current) drug therapy; Z88.8 Allergy status to other drugs, medicaments and biological substances
CPT/HCPCS: 36415; 71045; 80053; 82962; 83880; 84484; 85025; 85610; 85730; 93005

== ENCOUNTER → 2022-11-28 | Outpatient (CLI) | payer MEDICAID ==
[~2022-11-28] VITALS: Ht 157.5 cm; Wt 62.6 kg
[~2022-11-28] MED LIST changes: +ADENOSINE 53 MG in GIVE UN-DILUTED 0 ML IV ONE; +ADENOSINE 90 MG/30 ML INJ IV ONE
== END | disposition home or self-care (01) ==
LOC: Rad HDHVI 08:18
PROVIDERS: ATTEND Internal Medicine Cardiovascular Disease
DX: I11.0 Hypertensive heart disease with heart failure (principal); I50.33 Acute on chronic diastolic (congestive) heart failure; I25.2 Old myocardial infarction; E78.00 Pure hypercholesterolemia, unspecified; E11.9 Type 2 diabetes mellitus without complications; R06.02 Shortness of breath; R07.9 Chest pain, unspecified; Z82.49 Family history of ischemic heart disease and other diseases of the circulatory system
CPT/HCPCS: 78452; 93005; 96374; 96375; A9500; J0153

== ENCOUNTER → 2022-11-29 | Outpatient (CLI) | payer MEDICAID ==
[~2022-11-29] MED LIST changes: -ADENOSINE 53 MG in GIVE UN-DILUTED 0 ML IV ONE; -ADENOSINE 90 MG/30 ML INJ IV ONE
== END | disposition home or self-care (01) ==
LOC: Rad HDHVI 13:28
PROVIDERS: ATTEND Internal Medicine Cardiovascular Disease
DX: I35.1 Nonrheumatic aortic (valve) insufficiency (principal); R07.89 Other chest pain; I10 Essential (primary) hypertension
CPT/HCPCS: 93306

== ENCOUNTER 2023-06-02 15:23 | Emergency (ER) | payer MEDICAID ==
[~2023-06-02] VITALS: Ht 157.5 cm; Wt 61.1 kg
[~2023-06-02 15:23] MED LIST changes: +GABA-1250 PO; -GABA300C10 PO; +IBUP-1454 PO; -IBUP600T27 PO; -LISI20TA28 PO; +LISI20TA56 PO
[2023-06-02 16:01] VITALS: BP 155/53; PULSE 96; RESP 18; O2SAT 99
[2023-06-02] MEDS ORDERED: DexAMETHasone SOD PHOS 10MG/1ML VIAL INJ IM ONE (16:15)
[2023-06-02] MEDS ORDERED: KETOROLAC TROMETH 60MG/2ML VIAL IM ONE (16:15)
[2023-06-02 22:28] LABS: COVID19 ANTIGEN SOFIA FIA NEGATIVE (NEGATIVE); Rapid Influenza A Negative (Negative); Rapid Influenza B Negative (Negative)
[2023-06-02 22:34] LABS: Urine Bacteria NONE SEEN /hpf (None Seen); Urine Blood 1+ /uL (Negative); Urine Clarity CLOUDY (Clear); Urine Color Yellow (Yellow); Urine Mucus FEW (None Seen); Urine Protein, UAD 4+ (Negative); Urine WBC 1926 /hpf (0 - 5)
== END 2023-06-02 20:07 | disposition left against medical advice (07) ==
LOC: ER 15:23
DX: R50.9 Fever, unspecified (principal); M79.10 Myalgia, unspecified site; J02.9 Acute pharyngitis, unspecified; Z20.822 Contact with and (suspected) exposure to COVID-19; Z53.21 Procedure and treatment not carried out due to patient leaving prior to being seen by health care provider
CPT/HCPCS: 36415; 81001; 87426; 87804

== ENCOUNTER 2023-06-23 17:28 | Emergency (ER) | payer MEDICAID ==
[~2023-06-23] VITALS: Ht 172.7 cm; Wt 65.4 kg
[2023-06-23 20:01] VITALS: BP 180/62; PULSE 78; RESP 16; TEMP 98.1; O2SAT 96
[2023-06-23 20:27] LABS: Urine Bacteria NONE SEEN /hpf (None Seen); Urine Blood Negative /uL (Negative); Urine Clarity Clear (Clear); Urine Color Colorless (Yellow); Urine Protein, UAD 3+ (Negative); Urine Specific Gravity 1.022 (1.001-1.035); Urine Urobilinogen Normal (Negative); Urine WBC 16 /hpf (0 - 5)
[2023-06-23] MEDS ORDERED: cefTRIAXone SOD 1,000 MG VL IM ONE (22:45)
[2023-06-23] MEDS ORDERED: DexAMETHasone SOD PHOS 10MG/1ML VIAL INJ IM ONE (22:45)
[2023-06-23] MEDS ORDERED: BENZLOZ2 MT (22:47)
[2023-06-23] MEDS ORDERED: AZIT-74 PO (22:47)
[2023-06-23] MEDS ORDERED: ALBUAER3 IN (22:47)
[2023-06-23] MEDS ORDERED: BENZ200C64 PO (22:47)
== END 2023-06-24 00:29 | disposition home or self-care (01) ==
LOC: ER 17:28
DX: J03.90 Acute tonsillitis, unspecified (principal); J20.9 Acute bronchitis, unspecified; N39.0 Urinary tract infection, site not specified; R91.1 Solitary pulmonary nodule; E11.9 Type 2 diabetes mellitus without complications; E78.5 Hyperlipidemia, unspecified; I10 Essential (primary) hypertension
CPT/HCPCS: 71045; 81001; 93005; 96372; 99285; J0696; J1100

== ENCOUNTER 2023-10-29 14:33 | Emergency (ER) | payer MEDICAID ==
[~2023-10-29 14:33] MED LIST changes: +ALBUAER3 IN; +AZIT-74 PO; +BENZ200C64 PO; +BENZLOZ2 MT
[2023-10-29 15:11] LABS: Basophils # (auto) 0 10 ^3/uL (0-0.2); Basophils % (auto) 0.2 % (0.0-2.0); Eosinophils # (auto) 0.2 10 ^3/uL (0-0.8); Eosinophils % (auto) 2.9 % (0.0-7.0); Hematocrit 33.4 % (36.0-46.0); Hemoglobin 11.5 g/dL (12.2-16.2); Lymphocytes % (auto) 30.6 % (10.0-50.0); Mean Corpuscular Hemoglobin 30.4 pg (28.0-32.0); Mean Corpuscular Hgb Conc. 34.5 g/dL (32.0-36.0); Mean Corpuscular Volume 88.1 fL (80.0-100.0); Monocytes # (auto) 0.5 10 ^3/uL (0-1.3); Neutrophils % (auto) 59.3 % (37.0-80.0); Nucleated Red Blood Cells % 0.1 %; Red Blood Cells 3.79 10^6/uL (4.0-5.20); Red Cell Distribution Width 13.8 % (11.8-14.3); White Blood Cell 6.7 10^3/uL (4.4-10.8)
[2023-10-29 15:23] LABS: Alanine Aminotransferase 12 U/L (7-40); Albumin 4.2 g/dL (3.2-4.8); Alkaline Phosphatase 119 U/L (46-116); Anion Gap 6 (5-15); Aspartate Aminotransferase 14 U/L (13-40); BUN/Creatinine Ratio 21.7 (10.0-20.0); Blood Urea Nitrogen 20 mg/dL (9-23); Calcium 9.5 mg/dL (8.7-10.4); Carbon Dioxide 28 mmol/L (20-30); Chloride 108 mmol/L (98-107); Glucose 239 mg/dL (74-106); Magnesium 1.7 mg/dL (1.6-2.6); Potassium 4.3 mmol/L (3.5-5.1); Sodium 142 mmol/L (136-145)
[2023-10-29 15:24] LABS: Bilirubin, Total 0.5 mg/dL (0.2-1.0); Total Protein 6.6 g/dL (5.7-8.2)
[2023-10-29] MEDS ORDERED: B-COTAB26 OR (20:23)
[2023-10-29] MEDS ORDERED: THIA250T7 PO (20:27)
[2023-10-29] MEDS ORDERED: ATEN-60 PO (20:54)
[2023-10-29 20:55] VITALS: BP 151/73; TEMP 98.7
[2023-10-29 20:59] VITALS: PULSE 75; RESP 20; O2SAT 96
== END 2023-10-29 20:55 | disposition home or self-care (01) ==
LOC: ER 14:33
DX: R07.89 Other chest pain (principal); F41.9 Anxiety disorder, unspecified; E11.40 Type 2 diabetes mellitus with diabetic neuropathy, unspecified; E11.65 Type 2 diabetes mellitus with hyperglycemia; I10 Essential (primary) hypertension; R42 Dizziness and giddiness; J44.9 Chronic obstructive pulmonary disease, unspecified; E78.5 Hyperlipidemia, unspecified; Z90.49 Acquired absence of other specified parts of digestive tract; Z90.710 Acquired absence of both cervix and uterus
CPT/HCPCS: 36415; 71045; 80053; 83735; 83880; 84484; 85025; 93005

== ENCOUNTER → 2024-01-31 | Outpatient (CLI) | payer MEDICAID ==
[~2024-01-31] MED LIST changes: +ATEN-60 PO; +B-COTAB26 OR; +THIA250T7 PO
== END | disposition home or self-care (01) ==
LOC: Rad HDHVI 10:54
PROVIDERS: ATTEND Internal Medicine Cardiovascular Disease
DX: I35.1 Nonrheumatic aortic (valve) insufficiency (principal); R07.89 Other chest pain; I11.9 Hypertensive heart disease without heart failure
CPT/HCPCS: 93306

== ENCOUNTER 2024-03-02 18:14 | Emergency (ER) | payer MEDICAID ==
[~2024-03-02] VITALS: Ht 157.5 cm; Wt 70.1 kg
[2024-03-02 19:39] LABS: Basophils # (auto) 0 10 ^3/uL (0-0.2); Basophils % (auto) 0.2 % (0.0-2.0); Eosinophils # (auto) 0.2 10 ^3/uL (0-0.8); Hematocrit 37.5 % (36.0-46.0); Hemoglobin 13.2 g/dL (12.2-16.2); Lymphocytes # (auto) 2.5 10 ^3/uL (0.4-5.4); Lymphocytes % (auto) 34.5 % (10.0-50.0); Mean Corpuscular Hemoglobin 30.8 pg (28.0-32.0); Mean Corpuscular Hgb Conc. 35.1 g/dL (32.0-36.0); Mean Corpuscular Volume 87.7 fL (80.0-100.0); Monocytes # (auto) 0.4 10 ^3/uL (0-1.3); Monocytes % (auto) 5.2 % (0.0-12.0); Neutrophils # (auto) 4.1 10 ^3/uL (1.6-8.6); Neutrophils % (auto) 57.1 % (37.0-80.0); Nucleated Red Blood Cells % 0.1 %; Red Blood Cells 4.28 10^6/uL (4.0-5.20); White Blood Cell 7.3 10^3/uL (4.4-10.8)
[2024-03-02 19:48] LABS: Chloride 100 mmol/L (98-107); Potassium 4.5 mmol/L (3.5-5.1); Sodium 130 mmol/L (136-145)
[2024-03-02 19:49] LABS: Anion Gap 4 (5-15); Carbon Dioxide 26 mmol/L (20-30)
[2024-03-02 19:50] LABS: Calcium 9.9 mg/dL (8.7-10.4)
[2024-03-02 19:52] VITALS: BP 132/53; PULSE 78; RESP 17; TEMP 97.5; O2SAT 99
[2024-03-02] MEDS: KETOROLAC TROMETH 60MG/2ML VIAL IM ONE (19:52)
[2024-03-02 19:54] LABS: BUN/Creatinine Ratio 20.8 (10.0-20.0); Blood Urea Nitrogen 22 mg/dL (9-23)
[2024-03-02 19:57] LABS: Glucose 467 mg/dL (74-106)
[2024-03-02] MEDS: INSULIN LISPRO (HUMAN) 100 UNITS/ML ML SC ONE (20:15)
[2024-03-02] MEDS: SODIUM CHLORIDE 0.9% 1,000 ML IV ONE (20:47)
[2024-03-02] MEDS ORDERED: IBUP-1455 PO (21:04)
[2024-03-02] MEDS ORDERED: HYDR-4902 PO (21:04)
== END 2024-03-02 21:30 | disposition home or self-care (01) ==
LOC: ER 18:21
DX: E11.65 Type 2 diabetes mellitus with hyperglycemia (principal); M54.6 Pain in thoracic spine; I10 Essential (primary) hypertension; E78.5 Hyperlipidemia, unspecified; J44.9 Chronic obstructive pulmonary disease, unspecified; Z98.890 Other specified postprocedural states; Z79.899 Other long term (current) drug therapy
CPT/HCPCS: 36415; 72070; 80048; 82962; 85025; 85379; 93005; 96360; 96372; 99285; J1815; J1885; J7030

== ENCOUNTER 2024-07-22 08:09 | Emergency (ER) | payer MEDICAID ==
[~2024-07-22] VITALS: Ht 157.5 cm; Wt 74.8 kg
[~2024-07-22 08:09] MED LIST changes: +HYDR-4902 PO; +IBUP-1455 PO
--- NOTE | 2024-07-22 09:06 | DVH ---
XY CHEST TWO VIEWS ROUTINE CLINICAL HISTORY: Uncontrolled hypertension COMPARISON: None TECHNIQUE: Frontal and lateral view of the chest was obtained FINDINGS: Lines and Tubes: None Lungs: No focal consolidation. Pleura: No effusion. No pneumothorax. Cardiomediastinal contours: Unremarkable Bones: No acute osseous abnormality. IMPRESSION: No acute cardiopulmonary disease.
[2024-07-22 09:07] LABS: Basophils # (auto) 0 10 ^3/uL (0-0.2); Basophils % (auto) 0.2 % (0.0-2.0); Eosinophils # (auto) 0.2 10 ^3/uL (0-0.8); Eosinophils % (auto) 2.8 % (0.0-7.0); Hematocrit 35.2 % (36.0-46.0); Hemoglobin 12.3 g/dL (12.2-16.2); Lymphocytes # (auto) 2.7 10 ^3/uL (0.4-5.4); Lymphocytes % (auto) 37.2 % (10.0-50.0); Mean Corpuscular Hemoglobin 31.6 pg (28.0-32.0); Mean Corpuscular Volume 90.5 fL (80.0-100.0); Monocytes # (auto) 0.4 10 ^3/uL (0-1.3); Monocytes % (auto) 5.7 % (0.0-12.0); Neutrophils % (auto) 54.1 % (37.0-80.0); Nucleated Red Blood Cells % 0.1 %; Platelet Count (auto) 223 10^3/uL (140-450); Red Blood Cells 3.89 10^6/uL (4.0-5.20); Red Cell Distribution Width 13.5 % (11.8-14.3); White Blood Cell 7.4 10^3/uL (4.4-10.8)
[2024-07-22 09:22] LABS: Albumin 4.2 g/dL (3.2-4.8); Alkaline Phosphatase 99 U/L (46-116); Anion Gap 8 (5-15); BUN/Creatinine Ratio 13.3 (10.0-20.0); Bilirubin, Total 0.5 mg/dL (0.2-1.0); Blood Urea Nitrogen 12 mg/dL (9-23); Calcium 10.1 mg/dL (8.7-10.4); Carbon Dioxide 23 mmol/L (20-31); Potassium 3.6 mmol/L (3.5-5.1); Sodium 140 mmol/L (136-145); Total Protein 6.9 g/dL (5.7-8.2)
[2024-07-22 09:34] LABS: Alanine Aminotransferase < 9 U/L (7-40); Aspartate Aminotransferase 12 U/L (13-40); Chloride 109 mmol/L (98-107); Glucose 182 mg/dL (74-106)
[2024-07-22] MEDS: SODIUM CHLORIDE 0.9% 1,000 ML IV ONE (09:48)
--- NOTE | 2024-07-22 09:48 | ED.PDOC ---
History of Present Illness HPI Comments 64 y/o F, with a Hx of angina, COPD, DM, HLD, and HTN, presents with c/o HTN, today. 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 Patient reports blood pressure readings at home of 220/100 and 180/81, yesterday and today, respectively. She admits to taking her blood pressure medications at 0300, this morning, prior to arrival to ED, and denies and relevant or pertinent Hx, such as recent medications or lifestyle changes. She denies having any chest pain, shortness of breath, fever, chills, or other asso ciated symptoms or modifiers at this time. Upon arrival to ED, patient had a blood pressure of 157/48. Chief Complaint: High Blood Pressure Time Seen by MD: 09:00 Primary Care Provider: UNKNOWN Reviewed Notes: Nurses Notes, Medications, Allergies Allergies: Coded Allergies: NO KNOWN ALLERGIES (Unverified , 06/23/23) Home Meds Active Scripts Hydrocodone-Acetaminophen (Hydrocodone Bitartrate/AC 5-325 mg) 1 Tab Tab, 1 TAB PO Q6HP PRN, #15 TAB Prov:PRAVEENA REYES PAC 03/02/24 Ibuprofen Micronized (Ibuprofen) 800 Mg Tab, 800 MG PO Q8HP PRN, #20 TAB Prov:PRAVEENA REYES PAC 03/02/24 Atenolol (Atenolol) 25 Mg Tab, 1 TAB PO BED TIME for 30 Days, #30 TAB 5 Refills Prov:SALOME CALIX MD 10/29/23 Thiamine Hcl (Vitamin B1) 250 Mg Tab, 250 MG PO BID for 60 Days, #120 TAB Prov:SALOME CALIX MD 10/29/23 B-Complex W/ C & Folic Acid (Dialyvite) Tab, 1 CAP OR DAILY PRN for 30 Days, #30 TAB Prov:SALOME CALIX MD 10/29/23 Benzonatate (Benzonatate) 200 Mg Cap, 1 CAP PO TID, #30 CAP as needed for cough Prov:MICHELLE VAUGHN SIDE LASTER TACK 06/23/23 Benzocaine-Menthol (Mouth-Thro (Cepacol Sore Throat) 1 Roya Roya, 1 ROYA MT Q4HR, #24 ROYA As needed for sorethroat Prov:MICHELLE VAUGHN Q SIDE LASTER TACK 06/23/23 Albuterol Sulfate (VENTOLIN MDI) 90 Mcg Ih, 1 PUFF IN Q4HPRN PRN, #1 INH As needed for cough nasal congestion shortness of breath or wheeze Prov:MICHELLE VAUGHN Q SIDE LASTER TACK 06/23/23 Azithromycin (Zithromax) 250 Mg Tab, 1 TAB PO DAILY for 5 Days, #6 TAB 2 tablets today then start 1 tablet tomorrow for 4days Prov:MICHELLE VAUGHN Q SIDE LASTER TACK 06/23/23 Metoprolol Succinate (Toprol Xl) 25 Mg Tab, 1 TAB PO DAILY, #30 TAB 0 Refills Prov:SHERIE OVALLES MD 05/03/19 Lisinopril (Lisinopril) 20 Mg Tab, 40 MG PO DAILY for 30 Days, #60 TAB Prov:SHERIE OVALLES MD 05/03/19 Glipizide (Glipizide) 10 Mg Tab, 1 TAB PO BID, #60 TAB 0 Refills Prov:OSCAR RUIZCP 09/25/17 Tramadol Hcl (Tramadol Hcl) 50 Mg Tab, 50 MG PO Q6HR PRN, #20 TAB Prov:WADE VALDEZ MD 10/06/16 Reported Medications Metformin Hydrochloride (Metformin Hcl) 500 Mg Tab, 1000 MG PO IBID for 30 Days, MG 02/20/21 Amoxicillin Trihydrate (Amoxicillin) 500 Mg Tab, 1 TAB PO BID, #20 TAB 02/20/21 Clarithromycin (Clarithromycin) 500 Mg Tab, 1 TAB PO BID, #20 TAB 02/20/21 Omeprazole Magnesium (Omeprazole) 20 Mg Tab, 20 MG PO BID, TAB 02/20/21 Insulin Isophane & Reg (Human) (Humulin 70/30 (70-30) 100 Unit/ml) 1 Units/0.01 Ml Inj, 15 UNITS SC BID, INJ 11/06/18 Cyclobenzaprine Hcl (Cyclobenzaprine Hcl) 10 Mg Tab, 10 MG PO Q8HP PRN for PAIN SCALE 1 THRU 6 for 30 Days, MG 11/06/18 Rosuvastatin Calcium (Crestor) 10 Mg Tab, 1 TAB PO DAILY, #30 TAB 5 Refills 11/06/18 Ibuprofen (Ibuprofen) 600 Mg Tab, 600 MG PO TIDPRN, MG 0 Refills 11/06/18 Gabapentin (Gabapentin) 300 Mg Cap, 300 MG PO BID for 30 Days, MG 11/06/18 Aspirin (Aspir-Low) 81 Mg Tab, 81 MG PO DAILY for 30 Days, MG 10/04/16 Information Source: Patient Mode of Arrival: Ambulatory Severity: Moderate Timing: Days Duration: Since onset Prehospital treatment: Other (see HPI) Past Medical History PAST MEDICAL HISTORY: Angina, COPD, DM, High Lipids, HTN Past Medical History (Other): obesity Surgical History: Appendectomy, Cholecystectomy, Hysterectomy LIVE HANGER History: No Pertinent LIVE HANGER History Family History Family History: Unknown Social History Smoker: Non-Smoker Alcohol: Denies ETOH Use Drugs: Denies Drug Use Lives In: Home Cardiovascular: reports: lightheadedness Neurological: reports: dizziness, weakness Hematologic/Lymphatic: reports: others (HTN ) All Other Systems: Reviewed and Negative (negative unless otherwise stated ) Physical Exam General Appearance: Moderate Distress, Obese, Other (Not feeling well) HEENT: Normal ENT Inspection, PERRL/EOMI Neck: Full Range of Motion, Non-Tender, Normal, Normal Inspection Respiratory: Chest Non-Tender, Lungs Clear, No Accessory Muscle Use, No Respiratory Distress, Normal Breath Sounds Cardiovascular: No Edema, No JVD, No Murmur, No Gallop, Normal Peripheral Pulses, Regular Rate/Rhythm Breast Exam: Deferred Gastrointestinal: No Organomegaly, Non Tender, No Pulsatile Mass, Normal Bowel Sounds, Soft, Other (Obesity) Genitalia: Deferred Pelvic: Deferred Rectal: Deferred Extremities: No calf tenderness, Normal capillary refill, Normal inspection, Normal range of motion, Non-tender, No pedal edema Neurologic: Alert, shelter director II-XII nml as Tested, No Motor Deficits, Normal Affect, Normal Mood, No Sensory Deficits Cerebellar Function: Normal Reflexes: Normal Skin: Dry, Normal Color, Warm Peripheral Pulses: 1+ carotid (R), 1+ carotid (L) Lymphatic: No Adenopathy Was a procedure done? Was a procedure done?: No Differential Dx Considerations may include: HTN emergency, inappropriate medication dosage, viral syndrome, UTI X-Ray, Labs, Meds, VS Vital Signs Date Time Temp Pulse Resp B/P (MAP) Pulse Ox O2 Delivery O2 Flow Rate FiO2 12/9/24 11:56 70 07/22/24 09:55 73 17 95 Room Air* 0 21 07/22/24 09:55 98.1 73 17 140/46 (77) 95 98.1 07/22/24 08:20 97.5 72 16 157/48 (84) 99 Lab Test 07/22/24 09:45 07/22/24 08:55 Range/Units Urine Color Colorless Yellow Urine Clarity Clear Clear Urine pH 6.0 5.0-9.0 Urine Specific [place] 1.020 1.001-1.035 Urine Protein 1+ H Negative Urine Ketones Negative Negative Urine Blood Negative Negative /uL Urine Nitrite Negative Negative Urine Bilirubin Negative Negative Urine Urobilinogen Normal Negative mg/dL Urine Leukocyte Esterase Negative Negative /uL Urine RBC 1 0 - 4 /hpf Urine WBC 1 0 - 5 /hpf Urine Squamous Epithelial Cells Few <5 /hpf Urine Bacteria None seen None Seen /hpf Urine Glucose 4+ H Normal mg/dL White Blood Count 7.4 4.4-10.8 10^3/uL Red Blood Count 3.89 L 4.0-5.20 10^6/uL Hemoglobin 12.3 12.2-16.2 g/dL Hematocrit 35.2 L 36.0-46.0 % Mean Corpuscular Volume 90.5 80.0-100.0 fL Mean Corpuscular Hemoglobin 31.6 28.0-32.0 pg Mean Corpuscular Hemoglobin Concent 35.0 32.0-36.0 g/dL Red Cell Distribution Width 13.5 11.8-14.3 % Platelet Count 223 140-450 10^3/uL Mean Platelet Volume 8.3 6.9-10.8 fL Neutrophils (%) (Auto) 54.1 37.0-80.0 % Lymphocytes (%) (Auto) 37.2 10.0-50.0 % Monocytes (%) (Auto) 5.7 0.0-12.0 % Eosinophils (%) (Auto) 2.8 0.0-7.0 % Basophils (%) (Auto) 0.2 0.0-2.0 % Neutrophils # (Auto) 4.0 1.6-8.6 10 ^3/uL Lymphocytes # (Auto) 2.7 0.4-5.4 10 ^3/uL Monocytes # (Auto) 0.4 0-1.3 10 ^3/uL Eosinophils # (Auto) 0.2 0-0.8 10 ^3/uL Basophils # (Auto) 0 0-0.2 10 ^3/uL Nucleated Red Blood Cells 0.1 % Sodium Level 140 136-145 mmol/L Potassium Level 3.6 3.5-5.1 mmol/L Chloride Level 109 H 98-107 mmol/L Carbon Dioxide Level 23 20-31 mmol/L Anion Gap 8 5-15 Blood Urea Nitrogen 12 9-23 mg/dL Creatinine 0.90 0.550-1.02 mg/dL Glomerular Filtration Rate Calc 72 >90 mL/min BUN/Creatinine Ratio 13.3 10.0-20.0 Serum Glucose 182 H 74-106 mg/dL Calcium Level 10.1 8.7-10.4 mg/dL Magnesium Level 2.0 1.6-2.6 mg/dL Total Bilirubin 0.5 0.2-1.0 mg/dL Aspartate Amino Transferase (AST) 12 L 13-40 U/L Alanine Aminotransferase (ALT) < 9 7-40 U/L Alkaline Phosphatase 99 46-116 U/L Total Protein 6.9 5.7-8.2 g/dL Albumin 4.2 3.2-4.8 g/dL [place] [id number] Ph: [phone] DIAGNOSTIC IMAGING Diagnostic Imaging Report : [id number] Signed PATIENT: TRENTON LIPSCOMB ACCT: [id number] UNIT: [id number] : 1960 LOC: ER ROOM / BED: / AGE / SEX: 64 / F ADM STATUS: REG ER SERVICE [id number] ORDERING PHYSICIAN: SALOME CALIX MD PROCEDURE(s): CXR2 - CHEST TWO VIEWS ROUTINE REASON: Uncontrolled hypertension ORDER NUMBER(s): [id number], ACCESSION NUMBER(s): [id number] XY CHEST TWO VIEWS ROUTINE CLINICAL HISTORY: Uncontrolled hypertension COMPARISON: None TECHNIQUE: Frontal and lateral view of the chest was obtained FINDINGS: Lines and Tubes: None Lungs: No focal consolidation. Pleura: No effusion. No pneumothorax. Cardiomediastinal contours: Unremarkable Bones: No acute osseous abnormality. IMPRESSION: No acute cardiopulmonary disease. ATED BY: ANABELL SANTOS MD DICTATED DATE/TIME: 07/22/24902 SIGNED BY: ANABELL SANTOS MD SIGNED DATE/TIME: 07/22/24902 CC: X-Ray, Labs, Meds, VS Comment Course in the emergency department patient came in because of uncontrolled hypertension which was 200/100 took her medication at home in [place] 158/48 she is also feeling not well The chest x-ray is normal EKG shows normal sinus rhythm at 70 CBC normal CMP blood sugar is 182 rest is normal Urine shows 1+ protein 4+ glucose Magnesium 2.0 The blood pressure is better patient will discharged home to follow up with her PCP Time of 1ST Reevaluation: 09:30 Reevaluation 1ST: Unchanged Patient Education/Counseling: Diagnosis, Treatment Family Education/Counseling: No Family Present Departure 1 Departure Time of Disposition: 13:25 Impression: Primary Impression: Uncontrolled hypertension Additional Impressions: Hyperglycemia due to diabetes mellitus History of chronic obstructive pulmonary disease Disposition: 01 HOME / SELF CARE / HOMELESS Condition: Fair Additional Instructions: Follow up with your PCP to address your blood pressure also follow up your blood pressure to address your hyperglycemia Take your medication as prescribed also new prescription clonidine 0.1 mg you could take one your blood pressure is over 180 e-Prescriptions Clonidine Hydrochloride (Clonidine Hcl) 0.1 Mg Tab 0.1 MG PO BID for 10 Days, #20 TAB Prov: SALOME CALIX MD 07/22/24 Discharged With: Self Critical Care Note Critical Care Time?: No Stability Stability form required: No Heart Score Heart Score: Heart Score Response (Comments) Value History Slightly Suspicious 0 EKG Normal 0 Age 45-64 1 Risk Factors 1 or 2 risk factors 1 Troponin N/A 0 Total 2 I personally scribed for SALOME CALIX MD ([email or web address]) on 07/22/24 at 09:47. El ectronically submitted by Nishant Velarde ([email or web address]). I personally scribed for SALOME CALIX MD ([email or web address]) on 07/22/24 at 10:42. Electronically submitted by Nishant Velarde ([email or web address]). SALOME CALIX MD Jul 22, 2024 09:47
[2024-07-22 09:55] VITALS: PULSE 73; RESP 17; O2SAT 95
[2024-07-22 10:06] LABS: Urine Bacteria None Seen /hpf (None Seen)
[2024-07-22 10:12] LABS: Urine Blood Negative /uL (Negative); Urine Clarity Clear (Clear); Urine Color Colorless (Yellow); Urine Protein, UAD 1+ (Negative); Urine Urobilinogen Normal (Negative); Urine WBC 1 /hpf (0 - 5)
[2024-07-22] MEDS ORDERED: CLON0.1T PO (13:31)
[2024-07-22 13:41] VITALS: BP 140/57; PULSE 74; RESP 17; TEMP 98.3; O2SAT 95
--- NOTE | 2024-07-23 10:51 | ECG ---
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
== END 2024-07-22 13:44 | disposition home or self-care (01) ==
LOC: ER 08:09
DX: I10 Essential (primary) hypertension (principal); R07.89 Other chest pain; E11.65 Type 2 diabetes mellitus with hyperglycemia; J44.9 Chronic obstructive pulmonary disease, unspecified; E78.5 Hyperlipidemia, unspecified; E66.9 Obesity, unspecified; Z79.4 Long term (current) use of insulin; Z79.82 Long term (current) use of aspirin; Z79.899 Other long term (current) drug therapy; Z90.49 Acquired absence of other specified parts of digestive tract; Z90.710 Acquired absence of both cervix and uterus
CPT/HCPCS: 36415; 71046; 80053; 81001; 83735; 85025; 93005

== ENCOUNTER → 2024-09-19 | Outpatient (CLI) | payer MEDICAID ==
[~2024-09-19] MED LIST changes: +CLON0.1T PO
--- NOTE | 2024-09-20 08:34 | DVHSR ---
APPROVED REPORT EXAM: Two-dimensional and M-mode echocardiogram with Doppler and color Doppler. DIMENSIONS LVDd4.0 (3.8-5.7cm)LA (2D)3.3 (1.9-4.0cm)Aortic Root2.6 (2.0-3.7cm) LVDs2.6 (2.5-4.0cm)LA (MM) (1.9-4.0cm)Aortic Cusp Exc1.7 (1.5-2.0cm) EF (%) 65.2 (55-70%)Rt. Atrium3.3 (1.9-4.0cm)Asc. Aorta cm IVSd1.1 (0.7-1.1cm)RV (D)2.4 (1.8-2.4cm) PWd1.1 (0.7-1.1cm) Mitral Valve MitralMitral Stenosis E wave0.75m/sMV Mean GR.mmHg A wave1.14m/sMV Peak GR.mmHg E/A ratio0.72D MVAcm2 DECEL [id number] 1/2 Timems Aortic Valve Aortic ValveAortic Stenosis V11.50m/Sunni Mean GR.10mmHg V22.06m/Sunni Peak GR.17mmHg AI P 1/2 Ghor511.67ms Pulmonic Valve V20.84m/s Tricuspid Valve [id number] LEFT VENTRICLE The Ejection Fraction is >55%. ATRIA The left atrial size is normal. The right atrium size is normal. MITRAL VALVE Mitral annular calcification is borderline. There is no mitral valve regurgitation noted. PULMONIC VALVE The pulmonic valve is not well visualized. TRICUSPID VALVE The tricuspid valve is grossly normal. AORTIC VALVE The aortic valve is mildlysclerotic. There is mild aortic regurgitation. GREAT VESSELS The aortic root is normal size. PERICARDIAL EFFUSION There is no pericardial effusion. Conclusion EF >60% MILD MR MILD AV SCLEROSIS
== END | disposition home or self-care (01) ==
LOC: Rad HDHVI 14:41
PROVIDERS: ATTEND Internal Medicine Cardiovascular Disease
DX: I35.1 Nonrheumatic aortic (valve) insufficiency (principal); R07.9 Chest pain, unspecified
CPT/HCPCS: 93306

== ENCOUNTER → 2024-09-23 | Outpatient (CLI) | payer MEDICAID ==
[~2024-09-23] MED LIST changes: +CHOL20007 PO; +CLOP75TA28 PO; +EMPA1TAB3 PO; +INSLANTI SC; +PREG50CA80 PO; +ROSU40TA81 PO; +SEMA2INJ3 SC
[2024-09-23 10:36] VITALS: BP 140/78; PULSE 78; RESP 16; O2SAT 97
[2024-09-23 10:54] VITALS: BP 147/77; PULSE 80; RESP 16; O2SAT 97
--- NOTE | 2024-09-23 14:32 | DVH ---
EXAM: XY CHEST TWO VIEWS ROUTINE CLINICAL HISTORY: Pain COMPARISON: None TECHNIQUE: Frontal and lateral view of the chest was obtained FINDINGS: Lines and Tubes: None Lungs: No focal consolidation. Pleura: No effusion. No pneumothorax. Cardiomediastinal contours: Unremarkable. Atherosclerotic vascular calcifications of the thoracic ao rta are noted. Bones: No acute osseous abnormality. IMPRESSION: No acute cardiopulmonary disease.
== END | disposition home or self-care (01) ==
LOC: Rad HDHVI 10:06
PROVIDERS: ATTEND Internal Medicine Cardiovascular Disease
DX: Z01.818 Encounter for other preprocedural examination (principal); I70.0 Atherosclerosis of aorta
CPT/HCPCS: 71046; 93005; G0463

== ENCOUNTER 2024-09-26 07:43 | Day surgery (SDC) | payer MEDICAID ==
[2024-09-23 11:45] LABS: Basophils # (auto) 0 10 ^3/uL (0-0.2); Basophils % (auto) 0.3 % (0.0-2.0); Eosinophils # (auto) 0.1 10 ^3/uL (0-0.8); Eosinophils % (auto) 1.9 % (0.0-7.0); Hematocrit 32.3 % (36.0-46.0); Hemoglobin 11.2 g/dL (12.2-16.2); Lymphocytes # (auto) 2.2 10 ^3/uL (0.4-5.4); Lymphocytes % (auto) 29.9 % (10.0-50.0); Mean Corpuscular Hemoglobin 30.4 pg (28.0-32.0); Mean Corpuscular Hgb Conc. 34.5 g/dL (32.0-36.0); Monocytes # (auto) 0.4 10 ^3/uL (0-1.3); Monocytes % (auto) 5.5 % (0.0-12.0); Neutrophils # (auto) 4.6 10 ^3/uL (1.6-8.6); Neutrophils % (auto) 62.4 % (37.0-80.0); Platelet Count (auto) 160 10^3/uL (140-450); Red Blood Cells 3.67 10^6/uL (4.0-5.20); Red Cell Distribution Width 12.9 % (11.8-14.3); White Blood Cell 7.4 10^3/uL (4.4-10.8)
[2024-09-23 12:10] LABS: INR 0.91 (0.9-1.15); Prothrombin Time 9.7 sec (9.3-11.8)
[2024-09-23 12:19] LABS: Anion Gap 8 (5-15); Carbon Dioxide 27 mmol/L (20-31); Chloride 104 mmol/L (98-107); Potassium 3.9 mmol/L (3.5-5.1); Sodium 139 mmol/L (136-145)
[2024-09-23 12:21] LABS: Calcium 10.2 mg/dL (8.7-10.4)
[2024-09-23 12:25] LABS: BUN/Creatinine Ratio 19.4 (10.0-20.0); Blood Urea Nitrogen 20 mg/dL (9-23); Glucose 257 mg/dL (74-106)
[2024-09-26] VITALS (8 sets, daily range): BP systolic 122–151; BP diastolic 49–66; PULSE 67–72; RESP 11–17; TEMP 97.7; O2SAT 93–96
[~2024-09-26] VITALS: Ht 157.5 cm; Wt 72.1 kg
[~2024-09-26 07:43] MED LIST changes: -ALBUAER3 IN; -AMOX500T3 PO; -ASPI-543 PO; -ATEN-60 PO; -AZIT-74 PO; -B-COTAB26 OR; -BENZ200C64 PO; -BENZLOZ2 MT; -CLAR1TAB21 PO; -CLON0.1T PO; -CYCL-839 PO; -GABA-1250 PO; -GLIP10TA9 PO; -HYDR-4902 PO; -IBUP-1454 PO; -IBUP-1455 PO; -INS7030I SC; -LISI20TA56 PO; -METF-370 PO; -METO25TA36 PO; -OMEP-434 PO; -ROSU10TA16 PO; -THIA250T7 PO; -TRAM50TA2 PO
--- NOTE | 2024-09-26 13:50 | ECG ---
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
--- NOTE | 2024-09-26 14:15 | DVHOP ---
DATE OF SURGERY: 09/26/2024 PROCEDURES PERFORMED: * Selective left and right carotid angiography. * Selective left and right internal and external angiography with left and right cerebral angiography. DESCRIPTION OF PROCEDURE: The patient was prepped and draped in a sterile condition. 1% Xylocaine used to anesthetize the right groin. Using a Cook needle, the right femoral artery was engaged with Seldinger technique, a 6-Palestinian sheath in the right femoral artery. Using 6-Palestinian JR4 diagnostic catheter, selective left carotid and cerebral angiographies were performed. There were no complications. The patient tolerated the procedure well. RESULTS: * Left and right common carotid without any flow restrictive lesion. * Left and right internal carotid artery without any flow restrictive lesion. * Left and right cerebral angiography did not reveal any deficits. * Left and right external carotid angiography revealed no flow restrictive lesion. At this time, there were mild intimal irregularities, but no hemodynamically significant narrowing was observed. At this time, conservative medical management. Tip Quintana MD SA/ALICIA TID: [id number] RECEIPT: [id number]
--- NOTE | 2024-09-26 14:25 | DVHHP ---
ADMIT DATE: 09/26/2024 HISTORY OF PRESENT ILLNESS: The patient who is 64 years old with history of hypertension, hyperlipidemia. Now presents with signs and symptom complex of increasing chest pain, shortness of breath and TIA-like symptoms. Remote history of tobacco use, but discontinued smoking some 30 years ago. PERTINENT MEDICAL HISTORY: Significant for hyperlipidemia as well. History of diabetes with diabetic neuropathy, vasculopathy, nephropathy. Because of the classic nature of chest pain, Plavix was initiated because of the abnormal stress test she had. The patient was started on Plavix, but had to stop the Plavix because the patient was having epistaxis. She also started Jardiance as well. She is on Crestor as well as Lantus insulin. She has a strong family history of coronary artery disease. Mother of coronary artery disease. REVIEW OF SYSTEMS: She denies any syncopal episode. No melena, hematochezia, hematemesis, hemoptysis. She does have epistaxis with antiplatelet therapy. She denies any syncopal episode. No history of seizure disorder. PHYSICAL EXAMINATION: VITAL SIGNS: Blood pressure is 134/80, pulse of 70, O2 saturation 98% on room air. HEENT: Pupils are reactive. Funduscopic exam shows no AV nicking, no exudates, no papilledema. Sclerae are anicteric. Extraocular muscles are intact. Oral mucosa moist. Posterior pharynx without any exudate. NECK: No JVD appreciated. Carotid pulses are 2+ symmetrical. Normal upstroke and contour. No cervical adenopathy. No supraclavicular adenopathy. PULMONARY: Clear to auscultation in all lung borrero. CARDIOVASCULAR: Regular rate without S3, without S4. PMI is not displaced. ABDOMEN: Soft, nontender, normal bowel sounds. EXTREMITIES: 1+ pulses bilaterally. NEUROLOGIC: The patient is intact. ASSESSMENT AND PLAN: Thus, the patient with chest pain, transient ischemic attack-like symptoms. At this time, I recommend the patient undergo carotid angiography as well as left heart catheterization. Further recommendations after the above procedure is completed. Risks and benefits were explained to the patient. Tip Quintana MD SA/LEENA/ALICIA TID: [id number] RECEIPT: [id number]
--- NOTE | 2024-09-26 14:37 | DVHOP ---
DATE OF SURGERY: 09/26/2024 PROCEDURES PERFORMED: * Left heart catheterization. * Conscious sedation. * Right iliac angiography. * Ventriculogram. DESCRIPTION OF PROCEDURE: The patient was prepped and draped in a sterile condition. A 1% Xylocaine used to anesthetize the right groin. Using a Cook needle, right femoral artery was engaged. With Seldinger technique, a 6-Romanian sheath in the right femoral artery. Using 6-Romanian JL4 catheter and 6-Romanian JR4 catheter, selective left and right coronary angiographies were performed. Using 6-Romanian pigtail catheter, ventriculogram was done. There were no complications. The patient tolerated the procedure well. Right femoral artery was closed using the Angio-Seal device. RESULTS: * Left main normal. * Left anterior descending artery: Mild intimal irregularity without any flow restrictive lesion. * Circumflex: Mild intimal irregularity without any flow restrictive lesion. * Right coronary artery: Mild intimal irregularity without any flow restrictive lesion. * Ventriculogram shows normal LVEF with an estimated EF of greater than 60% with an LVEDP of 18-20 mmHg with no gradient across the aortic valve. CONCLUSION: The patient with normal coronary anatomy; however, the patient does have high LVEDP secondary to high blood pressure and diastolic dysfunction. Aggressive antihypertensive therapy should be initiated. Tip Quintana MD SA/AKIL TID: [id number] RECEIPT: [id number]
--- NOTE | 2024-09-26 16:09 | DVHDS ---
DATE OF DISCHARGE: 09/26/2024 DISCHARGE DIAGNOSES: * The patient with chest pain, accelerated hypertension, diastolic dysfunction. Angiogram revealed normal coronary anatomy. Elevated LVEDP of 18 to 23 mmHg with no gradient across the aortic valve, EF is preserved at 60%. The patient should be aggressively treated with antihypertensive therapy for hypertensive heart disease. * The patient also has transient ischemic attack like symptoms. Carotid angiography however, did not reveal any flow restrictive lesion. HOSPITAL COURSE: At this time, conservative medical management is warranted. Follow up with me in 1 week. Stable at the time of discharge. DISPOSITION: Home. ACTIVITY: As instructed. DIET: Will be 2 gram sodium diet. Tip Quintana MD SA/QUE TID: [id number] RECEIPT: [id number]
== END 2024-09-26 13:52 | disposition home or self-care (01) ==
LOC: CATH 07:43
PROVIDERS: ATTEND Internal Medicine Cardiovascular Disease
DX: I65.23 Occlusion and stenosis of bilateral carotid arteries (principal); R79.1 Abnormal coagulation profile; I10 Essential (primary) hypertension; F41.8 Other specified anxiety disorders; Z79.899 Other long term (current) drug therapy; F41.0 Panic disorder [episodic paroxysmal anxiety]; I20.9 Angina pectoris, unspecified; Z86.11 Personal history of tuberculosis; Z87.891 Personal history of nicotine dependence; Z82.3 Family history of stroke; Z82.49 Family history of ischemic heart disease and other diseases of the circulatory system; Z84.1 Family history of disorders of kidney and ureter; Z83.3 Family history of diabetes mellitus
CPT/HCPCS: 36222; 36227; 36415; 80048; 85025; 85610; 85730; 93005; 93458; C1760; C1894; J1644; J2250; J3010; J7030; Q9967; 99152

== ENCOUNTER 2024-09-29 19:02 | Emergency (ER) | payer MEDICAID ==
[~2024-09-29] VITALS: Ht 157.5 cm; Wt 71.6 kg
--- NOTE | 2024-09-29 20:02 | ED.PDOC ---
History of Present Illness(SKN HPI Comments Pt reports rash to the right flank spreading to the right lower side and abd x 3 days. Pt reports rash as very painful to touch. Red raised spots noted to pt side in triage. Patient denies fever, chills, recent ill contacts or recent no travel. Chief Complaint: Rash Time Seen by MD: 19:23 Primary Care Provider: UNKNOWN History of Present Illness: Nurses Notes, Medications, Allergies Allergies: Coded Allergies: NO KNOWN ALLERGIES (Unverified , 09/23/24) Home Meds Active Scripts Lidocaine Hcl (Lidocaine) 3 % Cre, 3 % EX TID PRN for 5 Days, #28.3 GM Prov:AGA CATES HEAD GRINDER 09/29/24 Valacyclovir HCl (Valacyclovir HCl) 1 Gm Tab, 1 TAB PO Q8HR for 7 Days, #21 TAB Prov:AGA CATES HEAD GRINDER 09/29/24 Reported Medications Semaglutide (Ozempic) 2 Mg/3 Ml Inj, 0.5 MG SC QWEEKLY for FRIDAYS, INJ 09/23/24 Clopidogrel Bisulfate (Plavix) 75 Mg Tab, 1 TAB PO DAILY for CAD, #90 TAB 1 Refill 09/23/24 Rosuvastatin Calcium (Crestor) 40 Mg Tab, 1 TAB PO DAILY for HIGH CHOLESTEROL, #30 TAB 5 Refills 09/23/24 Pregabalin (Pregabalin) 50 Mg Cap, 50 MG PO BID for NEUROPATHY, CAP 09/23/24 Cholecalciferol (VITAMIN D3) 2,000 Unit Tab, 1 TAB PO DAILY for SUPPLEMENT, #30 TAB 5 Refills 09/23/24 Empagliflozin (Jardiance) 25 Mg Tab, 25 MG PO DAILY for DIABETES, TAB 09/23/24 Insulin Glargine (Lantus) 100 Unit/Ml Inj, 20 UNIT SC QAM for DIABETES, INJ 09/23/24 Information Source: Patient Mode of Arrival: Ambulatory Past Medical History PAST MEDICAL HISTORY: Angina, COPD, DM, High Lipids, HTN Surgical History: Appendectomy, Cholecystectomy, Hysterectomy BIOLOGICAL ENGINEER History: No Pertinent BIOLOGICAL ENGINEER History Family History Family History: Unknown Social History Smoker: Non-Smoker Alcohol: Denies ETOH Use Drugs: Denies Drug Use Lives In: Home Constitutional: denies: chills, diaphoresis, fatigue, fever, malaise, sweats, weakness, others EENTM: denies: blurred vision, double vision, ear bleeding, ear discharge, ear drainage, ear pain, ear ringing, eye pain, eye redness, hearing loss, mouth pain, mouth swelling, nasal discharge, nose bleeding, nose congestion, nose pain, photophobia, tearing, throat pain, throat swelling, voice changes, others Respiratory: denies: cough, hemoptysis, orthopnea, SOB at rest, shortness of breath, SOB with excertion, stridor, wheezing, others Cardiovascular: denies: chest pain, dizzy spells, diaphoresis, Dyspnea on exertion, edema, irregular heart beat, left arm pain, lightheadedness, palpitations, PND, syncope, others Gastrointestinal: denies: abdomen distended, abdominal pain, blood streaked bowels, constipated, diarrhea, dysphagia, difficulty swallowing, hematemesis, melena, nausea, poor appetite, poor fluid intake, rectal bleeding, rectal pain, vomiting, others Genitourinary: denies: abnormal vagina bleeding, burning, dyspareunia, dysuria, flank pain, frequency, hematuria, incontinence, pain, , vagina discharge, urgency, others Neurological: denies: dizziness, fainting, headache, left sided numbness, left sided weakness, numbness, paresthesia, pre-existing deficit, right sided numbness, right sided weakness, seizure, speech problems, tingling, tremors, weakness, others Musculoskeletal: denies: back pain, gout, joint pain, joint swelling, muscle pain, muscle stiffness, neck pain, others Integumetry: reports: rash; denies: bruises, change in color, change in hair/nails, dryness, laceration, lesions, lumps, wounds, others Allergic/Immunocompromised: denies: Difficulty Healing, Frequent Infections, Hives, Itching, others Hematologic/Lymphatic: denies: anemia, blood clots, easy bleeding, easy bruising, swollen glands, others Endocrine: denies: excessive hunger, excessive sweating, excessive thirst, excessive urination, flushing, intolerance to cold, intolerance to heat, unexplained weight gain, unexplained weight loss, others Psychiatric: denies: anxiety, bipolar disorder, depression, hopeless, panic disorder, schizophrenia, sleepless, suicidal, others Physical Exam General Appearance: No Apparent Distress, Normal HEENT: Pharynx Normal Neck: Full Range of Motion, Non-Tender Respiratory: Lungs Clear, No Respiratory Distress, Normal Breath Sounds Cardiovascular: No Murmur, Normal Peripheral Pulses, Regular Rate/Rhythm Breast Exam: Deferred Gastrointestinal: Non Tender, Soft Genitalia: Deferred Pelvic: Deferred Rectal: Deferred Extremities: Normal capillary refill, Normal inspection, Normal range of motion, Non-tender, No pedal edema Musculoskeletal : Apperance: Normal Neurologic: Alert, microsoft developer II-XII nml as Tested, No Motor Deficits, Normal Affect, Normal Mood, No Sensory Deficits Cerebellar Function: Normal Reflexes: Normal Skin: Dry, Normal Color, Rash (PAPULAR DERMATOMAL RASH RIGHT FLANK WITH MODERATE TENDERNESS ON PALPATION NO NOTED OPEN LESIONS OR DRAINAGE), Warm Lymphatic: No Adenopathy Was a procedure done? Was a procedure done?: No Differential Diagnosis (INTG) Differential Diagnosis: Atopic dermatitis, Candidiasis, Cellulitis, Contact Dermatitis, Impetigo, Scabies X-Ray, Labs, Meds, VS Vital Signs Date Time Temp Pulse Resp B/P (MAP) Pulse Ox O2 Delivery O2 Flow Rate FiO2 09/29/24 20:10 86 18 95 Room Air 09/29/24 20:10 98.2 86 18 124/46 (72) 95 98.2 09/29/24 19:18 98.2 85 18 123/44 (70) 97 Current Medications Medications (Trade) Dose Ordered Sig/Kerry Route Start Time Stop Time Status Last Admin Acetaminophen/ Hydrocodone Bitart ([place] 5/325MG Tab) 1 tab ONCE ONCE PO 09/29/24 20:15 09/29/24 20:16 DC 09/29/24 20:25 Ketorolac Tromethamine (Toradol Injection) 60 mg ONCE ONCE IM 09/29/24 20:15 09/29/24 20:16 DC 09/29/24 20:25 X-Ray, Labs, Meds, VS Comment Patient given Toradol 30 mg IM pots improvement in pain requesting discharge at this time. Likely Shingles, script Valtrex and lidocaine cream. FOLLOW-UP WITH PCP IN 1 TO 2 DAYS. TAKE MEDICATIONS PRESCRIBED. RETURN TO ED FOR ANY NEW OR WORSENING SYMPTOMS Time of 1ST Reevaluation: 20:35 Reevaluation 1ST: Improved Patient Education/Counseling: Diagnosis, Treatment, Prognosis, Need For Follow Up Family Education/Counseling: No Family Present Departure 1 Departure Time of Disposition: 20:42 Impression: Primary Impression: Shingles Qualified Codes: B02.9 - Zoster without complications Disposition: 01 HOME / SELF CARE / HOMELESS Condition: Stable e-Prescriptions Lidocaine Hcl (Lidocaine) 3 % Cre 3 % EX TID PRN for 5 Days, #28.3 GM Prov: AGA CATES 09/29/24 Valacyclovir HCl (Valacyclovir HCl) 1 Gm Tab 1 TAB PO Q8HR for 7 Days, #21 TAB Prov: AGA CATES 09/29/24 Discharged With: Spouse Critical Care Note Critical Care Time?: No Stability Stability form required: No AGA CATES Sep 29, 2024 20:02
[2024-09-29 20:10] VITALS: BP 124/46; PULSE 86; RESP 18; TEMP 98.2; O2SAT 95
[2024-09-29] MEDS: KETOROLAC TROMETH 60MG/2ML VIAL IM ONE (20:25)
[2024-09-29] MEDS: HYDROcodone-ACET 5/325MG TAB PO ONE (20:25)
[2024-09-29] MEDS ORDERED: VALA1TAB34 PO (20:42)
[2024-09-29] MEDS ORDERED: LIDO3CRE16 EX (20:42)
== END 2024-09-29 21:03 | disposition home or self-care (01) ==
LOC: ER 19:02
DX: B02.9 Zoster without complications (principal); E11.9 Type 2 diabetes mellitus without complications; I10 Essential (primary) hypertension; J44.9 Chronic obstructive pulmonary disease, unspecified; Z79.02 Long term (current) use of antithrombotics/antiplatelets; Z79.84 Long term (current) use of oral hypoglycemic drugs; Z79.85 Long-term (current) use of injectable non-insulin antidiabetic drugs; Z79.899 Other long term (current) drug therapy; Z90.49 Acquired absence of other specified parts of digestive tract; Z90.710 Acquired absence of both cervix and uterus
CPT/HCPCS: 96372; 99283; J1885

== ENCOUNTER 2024-12-30 00:26 | Emergency (ER) | payer MEDICAID ==
[~2024-12-30] VITALS: Ht 157.5 cm; Wt 71.3 kg
--- NOTE | 2024-12-30 00:59 | ED.PDOC ---
Back pain HPI HPI Comments C/C of left ankle and foot pain. Pt states she was walking down the stairs, tripped and left foot bukled underneath body, 12/28/24. Noted non-pitting edema, and abrasion to left lower extremity. Pt unable to bear full weight, but able to ambulate with slow steady gait. Chief Complaint: Lower Extremity Time Seen by MD: 00:56 Primary Care Provider: UNKNOWN Reviewed Notes: Nurses Notes, Medications, Allergies Allergies: Coded Allergies: NO KNOWN ALLERGIES (Unverified , 09/23/24) Home Meds Active Scripts Methocarbamol (Methocarbamol) 500 Mg Tab, 1 TAB PO HS PRN for 5 Days, #5 TAB HALF TO 1 TAB BY MOUTH AT SLEEP ONCE NEEDED FOR MUSCLE SPASMS Prov:AGA CATES SLOT OPERATIONS MANAGER 12/30/24 Diclofenac Potassium (Diclofenac Potassium) 50 Mg Tab, 1 TAB PO BID PRN for 7 Days, #14 TAB Prov:AGA CATES [facility] 12/30/24 Reported Medications Semaglutide (Ozempic) 2 Mg/3 Ml Inj, 0.5 MG SC QWEEKLY for FRIDAYS, INJ 09/23/24 Clopidogrel Bisulfate (Plavix) 75 Mg Tab, 1 TAB PO DAILY for CAD, #90 TAB 1 Refill 09/23/24 Rosuvastatin Calcium (Crestor) 40 Mg Tab, 1 TAB PO DAILY for HIGH CHOLESTEROL, #30 TAB 5 Refills 09/23/24 Pregabalin (Pregabalin) 50 Mg Cap, 50 MG PO BID for NEUROPATHY, CAP 09/23/24 Cholecalciferol (VITAMIN D3) 2,000 Unit Tab, 1 TAB PO DAILY for SUPPLEMENT, #30 TAB 5 Refills 09/23/24 Empagliflozin (Jardiance) 25 Mg Tab, 25 MG PO DAILY for DIABETES, TAB 09/23/24 Insulin Glargine (Lantus) 100 Unit/Ml Inj, 20 UNIT SC QAM for DIABETES, INJ 09/23/24 Information Source: Patient Past Medical History PAST MEDICAL HISTORY: Angina, COPD, DM, High Lipids, HTN Surgical History: Appendectomy, Cholecystectomy, Hysterectomy SAILING OFFICER History: No Pertinent SAILING OFFICER History Family History Family History: Unknown Social History Smoker: Non-Smoker Alcohol: Denies ETOH Use Drugs: Denies Drug Use Lives In: Home Constitutional: denies: chills, diaphoresis, fatigue, fever, malaise, sweats, weakness, others EENTM: denies: blurred vision, double vision, ear bleeding, ear discharge, ear drainage, ear pain, ear ringing, eye pain, eye redness, hearing loss, mouth pain, mouth swelling, nasal discharge, nose bleeding, nose congestion, nose pain, photophobia, tearing, throat pain, throat swelling, voice changes, others Respiratory: denies: cough, hemoptysis, orthopnea, SOB at rest, shortness of breath, SOB with excertion, stridor, wheezing, others Cardiovascular: denies: chest pain, dizzy spells, diaphoresis, Dyspnea on exertion, edema, irregular heart beat, left arm pain, lightheadedness, palpitations, PND, syncope, others Gastrointestinal: denies: abdomen distended, abdominal pain, blood streaked bowels, constipated, diarrhea, dysphagia, difficulty swallowing, hematemesis, melena, nausea, poor appetite, poor fluid intake, rectal bleeding, rectal pain, vomiting, others Genitourinary: denies: abnormal vagina bleeding, burning, dyspareunia, dysuria, flank pain, frequency, hematuria, incontinence, pain, , vagina discharge, urgency, others Neurological: denies: dizziness, fainting, headache, left sided numbness, left sided weakness, numbness, paresthesia, pre-existing deficit, right sided nu mbness, right sided weakness, seizure, speech problems, tingling, tremors, weakness, others Musculoskeletal: reports: joint pain, joint swelling, neck pain; denies: back p ain, gout, muscle pain, muscle stiffness, others Integumetry: reports: bruises; denies: change in color, change in hair/nails, dryness, laceration, lesions, lumps, rash, wounds, others Allergic/Immunocompromised: denies: Difficulty Healing, Frequent Infections, Hives, Itching, others Hematologic/Lymphatic: denies: anemia, blood clots, easy bleeding, easy bruising, swollen glands, others Endocrine: denies: excessive hunger, excessive sweating, excessive thirst, excessive urination, flushing, intolerance to cold, intolerance to heat, unexplained weight gain, unexplained weight loss, others Psychiatric: denies: anxiety, bipolar disorder, depression, hopeless, panic disorder, schizophrenia, sleepless, suicidal, others Physical Exam General Appearance: No Apparent Distress, Normal HEENT: Pharynx Normal Neck: Full Range of Motion, Non-Tender Respiratory: Lungs Clear, No Respiratory Distress, Normal Breath Sounds Cardiovascular: No Edema, No JVD, No Murmur, No Gallop, Normal Peripheral Pulses, Regular Rate/Rhythm Breast Exam: Deferred Gastrointestinal: No Organomegaly, Non Tender, No Pulsatile Mass, Soft Genitalia: Deferred Pelvic: Deferred Rectal: Deferred Extremities: Normal capillary refill, Normal inspection, Normal range of motion, Non-tender, No pedal edema, Swelling, Tender Musculoskeletal : Location: Left Extremity Location: Ankle (Moderate edema about the ankle strength sensory motion intact positive pedal pulse) Apperance: Normal Neurologic: Alert, No Motor Deficits, Normal Affect, Normal Mood, No Sensory Deficits Cerebellar Function: Normal Reflexes: Normal Skin: Dry, Normal Color, Warm, Wounds (Superficial abrasions noted left lower extremity) Lymphatic: No Adenopathy Was a procedure done? Was a procedure done?: No Back Pain Differential Dx Differential Diagnosis: Fracture, Musculoskeletal Pain, Strain X-Ray, Labs, Meds, VS Vital Signs Date Time Temp Pulse Resp B/P (MAP) Pulse Ox O2 Delivery O2 Flow Rate FiO2 12/30/24 01:17 98.2 71 20 123/50 (74) 98 98.2 12/30/24 01:17 71 20 98 Room Air 12/30/24 00:34 98.2 75 16 135/44 (74) 96 98.2 Current Medications Medications (Trade) Dose Ordered Sig/Kerry Route Start Time Stop Time Status Last Admin Ketorolac Tromethamine (Toradol Injection) 60 mg ONCE ONCE IM 12/30/24 01:30 12/30/24 01:31 DC 12/30/24 01:29 X-Ray, Labs, Meds, VS Comment X-RAY LEFT FOOT AND ANKLE. COMPARISON: None TECHNIQUE: Three views of the left foot and three views of the left ankle were performed. FINDINGS: No acute fracture or dislocation are identified about the left ankle or foot. The mortise is intact. IMPRESSION: No acute findings. Soft tissue edema. PATIENT TORADOL 60 MG IM AND ICE FOOT ELEVATED. PATIENT REPORTS IMPROVEMENT REQUESTING DISCHARGE AT THIS TIME. PATIENT PLACED IN VELCRO ANKLE STIRRUP, RECOMMENDED CRUTCHES PATIENT REFUSED. PATIENT STATES SHE WAS WITH HER DAUGHTER WAS ABLE TO HELP HER WITH HER ADLS. ADVISED TO STAY OFF HER FOOT FOR THE NEXT SEVERAL DAYS MUCH POSSIBLE ELEVATE ICE AND ANTI-INFLAMMATORIES. VELCRO ANKLE STIRRUP WHEN SHE IS WALKING AROUND. SCRIPT TRIAL DICLOFENAC AND METHOCARBAMOL. PATIENT REPORTS MULTIPLE SPASMS IN HER LEFT ANKLE AND LEG. ADVISED TO TAKE MEDICATIONS PRESCRIBED SIDE EFFECTS WERE DISCUSSED. ADVISED TO FOLLOW UP WITH HER PCP IN 2 DAYS FOR RE-EVALUATION CONSIDER FURTHER IMAGING REPEAT X-RAY OR MRI IF SYMPTOMS PERSIST. ER RETURN PRECAUTIONS GIVEN PATIENT INDICATES UNDERSTANDING AND AGREES WITH DISCHARGE PLAN OF CARE. Time of 1ST Reevaluation: 00:57 Reevaluation 1ST: Unchanged Patient Education/Counseling: Diagnosis, Treatment, Prognosis, Need For Follow Up Family Education/Counseling: No Family Present Departure 1 Departure Time of Disposition: 02:49 Impression: Primary Impression: Moderate ankle sprain Qualified Codes: S93.402A - Sprain of unspecified ligament of left ankle, initial encounter Additional Impressions: Neck strain Qualified Codes: S16.1XXA - Strain of muscle, fascia and tendon at neck level, initial encounter Status post fall Disposition: 01 HOME / SELF CARE / HOMELESS Condition: Stable e-Prescriptions Methocarbamol (Methocarbamol) 500 Mg Tab 1 TAB PO HS PRN for 5 Days, #5 TAB HALF TO 1 TAB BY MOUTH AT SLEEP ONCE NEEDED FOR MUSCLE SPASMS Prov: AGA CATES 12/30/24 Diclofenac Potassium (Diclofenac Potassium) 50 Mg Tab 1 TAB PO BID PRN for 7 Days, #14 TAB Prov: AGA CATES 12/30/24 Discharged With: Self Critical Care Note Critical Care Time?: No Stability Stability form required: No AGA CATES December 30, 2024 00:59
[2024-12-30 01:17] VITALS: BP 123/50; PULSE 71; RESP 20; TEMP 98.2; O2SAT 98
[2024-12-30] MEDS: KETOROLAC TROMETH 60MG/2ML VIAL IM ONE (01:29)
--- NOTE | 2024-12-30 02:26 | DVH ---
EXAM: XY CERVICAL SPINE 3V HISTORY: Status post fall neck injury COMPARISON: None TECHNIQUE: AP, lateral, and odontoid views of the cervical spine were performed. FINDINGS: No cervical fracture, listhesis, or prevertebral soft tissue edema are identified. No significant de generative changes. IMPRESSION: 1. Unremarkable radiographs of the cervical spine.
--- NOTE | 2024-12-30 02:26 | DVH ---
EXAM: XY L ANKLE 3 VIEW, XY L FOOT 3 VIEW XRAY HISTORY: Status post fall injury COMPARISON: None TECHNIQUE: Three views of the left foot and three views of the left ankle were performed. FINDINGS: No acute fracture or dislocation are identified about the left ankle or foot. The mortise i s intact. IMPRESSION: No acute findings. Soft tissue edema.
[2024-12-30] MEDS ORDERED: DICL50TA2 PO (02:52)
[2024-12-30] MEDS ORDERED: METH-1181 PO (02:52)
== END 2024-12-30 03:03 | disposition home or self-care (01) ==
LOC: ER 00:26
DX: S93.402A Sprain of unspecified ligament of left ankle, initial encounter (principal); S16.1XXA Strain of muscle, fascia and tendon at neck level, initial encounter; I10 Essential (primary) hypertension; J44.9 Chronic obstructive pulmonary disease, unspecified; E11.9 Type 2 diabetes mellitus without complications; E78.5 Hyperlipidemia, unspecified; Z90.710 Acquired absence of both cervix and uterus; Z90.49 Acquired absence of other specified parts of digestive tract; Z79.899 Other long term (current) drug therapy; W10.9XXA Fall (on) (from) unspecified stairs and steps, initial encounter; Y93.01 Activity, walking, marching and hiking; Y92.89 Other specified places as the place of occurrence of the external cause; Y99.8 Other external cause status
CPT/HCPCS: 29515; 72040; 73610; 73630; 96372; 99284; J1885

== ENCOUNTER 2025-05-02 16:34 | Inpatient (IN) | payer MEDICAID, OTHER ==
[~2025-05-02] VITALS: Ht 157.5 cm; Wt 65.0 kg
--- NOTE | 2025-05-02 16:48 | ED.PDOC ---
HPI Comments This is a 64 year old female presenting to the ED with chief complaint of chest pain. Patient reports that she has been experiencing substernal chest pain with associated radiation into her back, SOB, nausea, chills, and neck pain since yesterday. Patient relays that she has had similar pain in the past. Patient denies any dizziness, headache, fever, N/V/D, abdominal pain, or syncope. Chief Complaint: Chest Pain Time Seen by MD: 16:46 Primary Care Provider: UNKNOWN Reviewed Notes: Nurses Notes, Medications, Allergies Allergies: Coded Allergies: NO KNOWN ALLERGIES (Unverified , 09/23/24) Home Meds Reported Medications Semaglutide (Ozempic) 2 Mg/3 Ml Inj, 0.5 MG SC QWEEKLY for FRIDAYS, INJ 09/23/24 Clopidogrel Bisulfate (Plavix) 75 Mg Tab, 1 TAB PO DAILY for CAD, #90 TAB 1 Refill 09/23/24 Rosuvastatin Calcium (Crestor) 40 Mg Tab, 1 TAB PO DAILY for HIGH CHOLESTEROL, #30 TAB 5 Refills 09/23/24 Pregabalin (Pregabalin) 50 Mg Cap, 50 MG PO BID for NEUROPATHY, CAP 09/23/24 Cholecalciferol (VITAMIN D3) 2,000 Unit Tab, 1 TAB PO DAILY for SUPPLEMENT, #30 TAB 5 Refills 09/23/24 Empagliflozin (Jardiance) 25 Mg Tab, 25 MG PO DAILY for DIABETES, TAB 09/23/24 Insulin Glargine (Lantus) 100 Unit/Ml Inj, 20 UNIT SC QAM for DIABETES, INJ 09/23/24 Information Source: Patient Mode of Arrival: Ambulatory Severity: Moderate Timing: Days Duration: Since onset Prehospital treatment: None Location: Substernal Radiation: Back Quality: Sharp Onset: At Rest Cardiac Risk Factors: HTN, Diabetes History of: Similar pain in past, Angina Past Medical History PAST MEDICAL HISTORY: Angina, COPD, DM, High Lipids, HTN Surgical History: Appendectomy, Cholecystectomy, Hysterectomy Surgical History (Other): Eye surgery BODY MAN History: No Pertinent BODY MAN History Family History Family History: Unknown Social History Smoker: Non-Smoker Alcohol: Denies ETOH Use Drugs: Denies Drug Use Lives In: Home Constitutional: reports: chills; denies: diaphoresis, fatigue, fever, malaise, sweats, weakness, others EENTM: denies: blurred vision, double vision, ear bleeding, ear discharge, ear drainage, ear pain, ear ringing, eye pain, eye redness, hearing loss, mouth pain, mouth swelling, nasal discharge, nose bleeding, nose congestion, nose pain, photophobia, tearing, throat pain, throat swelling, voice changes, others Respiratory: reports: shortness of breath; denies: cough, hemoptysis, orthopnea, SOB at rest, SOB with excertion, stridor, wheezing, others Cardiovascular: reports: chest pain; denies: dizzy spells, diaphoresis, Dyspnea on exertion, edema, irregular heart beat, left arm pain, lightheadedness, palpitations, PND, syncope, others Gastrointestinal: reports: nausea; denies: abdomen distended, abdominal pain, blood streaked bowels, constipated, diarrhea, dysphagia, difficulty swallowing, hematemesis, melena, poor appetite, poor fluid intake, rectal bleeding, rectal pain, vomiting, others Genitourinary: denies: abnormal vagina bleeding, burning, dyspareunia, dysuria, flank pain, frequency, hematuria, incontinence, pain, , vagina discharge, urgency, others Neurological: denies: dizziness, fainting, headache, left sided numbness, left sided weakness, numbness, paresthesia, pre-existing deficit, right sided numbness, right sided weakness, seizure, speech problems, tingling, tremors, weakness, others Musculoskeletal: reports: back pain, neck pain; denies: gout, joint pain, joint swelling, muscle pain, muscle stiffness, others Integumetry: denies: bruises, change in color, change in hair/nails, dryness, laceration, lesions, lumps, rash, wounds, others Allergic/Immunocompromised: denies: Difficulty Healing, Frequent Infections, Hives, Itching, others Hematologic/Lymphatic: denies: anemia, blood clots, easy bleeding, easy bruising, swollen glands, others Endocrine: denies: excessive hunger, excessive sweating, excessive thirst, excessive urination, flushing, intolerance to cold, intolerance to heat, unexplained weight gain, unexplained weight loss, others Psychiatric: denies: anxiety, bipolar disorder, depression, hopeless, panic disorder, schizophrenia, sleepless, suicidal, others All Other Systems: Reviewed and Negative Physical Exam General Appearance: Moderate Distress HEENT: Normal ENT Inspection, Pharynx Normal, TMs Normal Neck: Full Range of Motion, Non-Tender, Normal, Normal Inspection Respiratory: Chest Non-Tender, Lungs Clear, No Accessory Muscle Use, No Respiratory Distress, Normal Breath Sounds Cardiovascular: No Edema, No JVD, No Murmur, No Gallop, Normal Peripheral Pulses, Regular Rate/Rhythm Breast Exam: Deferred Gastrointestinal: No Organomegaly, Non Tender, No Pulsatile Mass, Normal Bowel Sounds, Soft Genitalia: Deferred Pelvic: Deferred Rectal: Deferred Extremities: No calf tenderness, Normal capillary refill, Normal inspection, No rmal range of motion, Non-tender, No pedal edema Musculoskeletal : Apperance: Normal Neurologic: Alert, standard machine stitcher II-XII nml as Tested, No Motor Deficits, Normal Affect, Normal Mood, No Sensory Deficits Cerebellar Function: Normal Reflexes: Normal Skin: Dry, Normal Color, Warm Lymphatic: No Adenopathy EKG EKG : Pulse Rate (adult): 84 [place]: Normal Cardiac Rhythm: NSR Block: None Hypertrophy: None ST: Normal Was a procedure done? Was a procedure done?: No CP Differential Dx Differential Diagnosis: Angina, Pulmonary Embolus Differential Diagnosis: CHF Differential Diagnosis: Pericarditis X-Ray, Labs, Meds, VS Vital Signs Date Time Temp Pulse Resp B/P (MAP) Pulse Ox O2 Delivery O2 Flow Rate FiO2 05/02/25 17:35 82 05/02/25 16:48 84 05/02/25 16:38 84 05/02/25 16:37 98.8 84 18 163/59 94 98.8 Lab Test 05/02/25 18:08 05/02/25 16:47 Range/Units Troponin I High Sensitivity Pending 8 </=34 ng/L White Blood Count 8.8 4.4-10.8 10^3/uL Red Blood Count 4.39 4.0-5.20 10^6/uL Hemoglobin 13.1 12.2-16.2 g/dL Hematocrit 37.2 36.0-46.0 % Mean Corpuscular Volume 84.6 80.0-100.0 fL Mean Corpuscular Hemoglobin 29.9 28.0-32.0 pg Mean Corpuscular Hemoglobin Concent 35.3 32.0-36.0 g/dL Red Cell Distribution Width 12.8 11.8-14.3 % Platelet Count 223 140-450 10^3/uL Mean Platelet Volume 9.2 6.9-10.8 fL Neutrophils (%) (Auto) 64.6 37.0-80.0 % Lymphocytes (%) (Auto) 29.2 10.0-50.0 % Monocytes (%) (Auto) 4.3 0.0-12.0 % Eosinophils (%) (Auto) 1.6 0.0-7.0 % Basophils (%) (Auto) 0.3 0.0-2.0 % Neutrophils # (Auto) 5.7 1.6-8.6 10 ^3/uL Lymphocytes # (Auto) 2.6 0.4-5.4 10 ^3/uL Monocytes # (Auto) 0.4 0-1.3 10 ^3/uL Eosinophils # (Auto) 0.1 0-0.8 10 ^3/uL Basophils # (Auto) 0 0-0.2 10 ^3/uL Nucleated Red Blood Cells 0.1 % Sodium Level Pending Potassium Level Pending Chloride Level Pending Carbon Dioxide Level Pending Anion Gap Pending Blood Urea Nitrogen Pending Creatinine Pending Glomerular Filtration Rate Calc Pending BUN/Creatinine Ratio Pending Serum Glucose Pending Calcium Level Pending B-Type Natriuretic Peptide Pending Chest XR indicates: No evidence of acute disease. The troponin level is within normal limits The CBC is within normal limits The chemistry panel is pending The patient is being admitted at this time The patient was also given aspirin The patient is admitted A cardiology consult will be obtained. Images Reviewed?: Images reviewed and evaluated by me Time of 1ST Reevaluation: 18:18 Reevaluation 1ST: Unchanged Patient Education/Counseling: Diagnosis, Treatment, Prognosis Family Education/Counseling: No Family Present SEPSIS Sepsis Screen Physician Orders Electrocardigram (05/02/25 16:36) Electrocardigram (05/02/25 17:36) Electrocardigram (05/02/25 19:36) Troponin-I Hs (05/02/25 17:36) Troponin-I Hs (05/02/25 19:36) B-Type Natriuretic Peptide (05/02/25 16:45) Heplock Iv (05/02/25 16:45) Commissioned Defence [employer] Officer (05/02/25 16:45) Blood Pressure (05/02/25 16:45) Pulse Oximetry (05/02/25 16:45) Chest Two Views Routine (05/02/25 16:45) Urinalysis (05/02/25 16:45) Basic Metabolic Panel (05/02/25 16:45) Vital Signs Date Time Temp Pulse Resp B/P (MAP) Pulse Ox O2 Delivery O2 Flow Rate FiO2 05/02/25 17:35 82 05/02/25 16:48 84 05/02/25 16:38 84 05/02/25 16:37 98.8 84 18 163/59 94 98.8 Laboratory Tests Test 05/02/25 16:47 White Blood Count 8.8 10^3/uL (4.4-10.8) Departure 1 Departure Time of Disposition: 18:17 Impression: Primary Impression: Acute coronary syndrome Disposition: ADMITTED INPATIENT Admit to: [facility] Condition: Fair Critical Care Note Critical Care Time?: Yes (45 min-critical care time only) Stability Stability form required: Yes Unstable for transfer: Telemetry monitoring (Telemetry monitoring required), ED Physician Assesment (Clinical assesment) Heart Score Heart Score: Heart Score Response (Comments) Value History Highly Suspicious 2 EKG Normal 0 Age 45-64 1 Risk Factors >3 or Hx ASHD 2 Troponin Normal limit 0 Total 5 I personally scribed for BIPIN GASPAR MD ([email or web address]) on 05/02/25 at 16:48. Electronically submitted by Paco Delarosa ([email or web address]). I personally scribed for BIPIN GASPAR MD ([email or web address]) on 05/02/25 at 17:56. Electronically submitted by Paco Delarosa ([email or web address]). BIPIN GASPAR MD May 02, 2025 16:48
--- NOTE | 2025-05-02 17:19 | DVH ---
CHEST RADIOGRAPH Indication: cp Technique: Frontal and lateral view of the chest was obtained Comparison: XY CHEST TWO VIEWS ROUTINE on DOS: 09/23/24, XY CHEST TWO VIEWS ROUTINE on DOS: 07/22/24, X Y CHEST PORTABLE on DOS: 10/29/23, XY CHEST XRAY 1 VIEW on DOS: 06/23/23, XR CHEST 2 VIEWS on DOS: 04/18 FINDINGS: Lines and Tubes: None Lungs: Clear Pleura: No effusion. No pneumothorax. Cardiomediastinal contours: Unremarkable Bones: Unremarkable IMPRESSION: 1. No evidence of acute disease.
[2025-05-02 17:40] LABS: Hematocrit 37.2 % (36.0-46.0); Hemoglobin 13.1 g/dL (12.2-16.2); Mean Corpuscular Hemoglobin 29.9 pg (28.0-32.0); Mean Corpuscular Volume 84.6 fL (80.0-100.0); Nucleated Red Blood Cells % 0.1 %
[2025-05-02 18:15] LABS: Chloride 102 mmol/L (98-107); Potassium 3.9 mmol/L (3.5-5.1); Sodium 140 mmol/L (136-145)
[2025-05-02 18:16] LABS: Anion Gap 11 (5-15); Carbon Dioxide 27 mmol/L (20-31)
[2025-05-02 18:17] LABS: Calcium 8.9 mg/dL (8.7-10.4)
--- NOTE | 2025-05-02 18:17 | ECG ---
[facility] Test Date: 2025-05-02 Test Time: 16:38:00 Pat Name: TRENTON LIPSCOMB Department: ED Room: 0208T Gender: F Senior Analyst Developer: DENICE : 1960 Requested By: DEBBY DUNN Order Number: [id number] Reading MD: Catrachito Dave Measurements Intervals [place] Rate: 84 P: 51 CA: 149 QRS: 47 QRSD: 93 T: 68 QT: 373 QTc: 441 Interpretive Statements Sinus rhythm Borderline T abnormalities, lateral leads Electronically Signed On 05-05-2025 18:48:44 PDT by Catrachito Dave Please click the below link to view image of tracing.
--- NOTE | 2025-05-02 18:18 | ECG ---
[facility] Test Date: 2025-05-02 Test Time: 17:33:05 Pat Name: TRENTON LIPSCOMB Department: ED Room: 0208T Gender: F Tech Ed/Woodshop Teacher: SUJIT : 1960 Requested By: DEBBY DUNN Order Number: [id number] Reading MD: Catrachito Dave Measurements Intervals [place] Rate: 82 P: 49 [place]: 145 QRS: 49 QRSD: 93 T: 45 QT: 379 QTc: 443 Interpretive Statements Sinus rhythm Nonspecific T abnormalities, lateral leads Electronically Signed On 05-05-2025 18:48:59 PDT by Catrachito Dave Please click the below link to view image of tracing.
[2025-05-02 18:22] LABS: BUN/Creatinine Ratio 23.1 (10.0-20.0)
[2025-05-02 18:26] LABS: Blood Urea Nitrogen 24 mg/dL (9-23); Glucose 311 mg/dL (74-106)
--- NOTE | 2025-05-02 21:19 | ECG ---
[facility] Test Date: 2025-05-02 Test Time: 19:41:32 Pat Name: TRENTON LIPSCOMB Department: ED Room: 0208T Gender: F Track Coach: BRIANNA : 1960 Requested By: DEBBY DUNN Order Number: [id number] Reading MD: Catrachito Dave Measurements Intervals [place] Rate: 77 P: 47 RI: 147 QRS: 55 QRSD: 89 T: 237 QT: 375 QTc: 425 Interpretive Statements Sinus rhythm Nonspecific T abnormalities, diffuse leads Baseline wander in lead(s) V2 Electronically Signed On 05-05-2025 18:49:11 PDT by Catrachito Dave Please click the below link to view image of tracing.
[2025-05-02 22:09] LABS: Urine Protein, UAD 3+ (Negative)
--- NOTE | 2025-05-02 23:40 | DVHHP2 ---
History of Present Illness Reason for Visit: Chest pain History of Present Illness The patient is a 64-year-old female with past medical history of angina, COPD, DM, hyperlipidemia, hypertension who presented to [facility] ED with complaint of chest pain. Patient reports that she has been experiencing meier bsternal chest pain, radiating to her back, rating 7/10 numeric scale, associated with shortness of breaths, nausea, chills, and neck pain. Patient states that she has had similar pain in the past. Patient was seen and evaluated in the ED, laboratory data shows WBC 8.8, platelets 223, sodium 140, potassium 3.9, BUN 24, creatinine 1.04, glucose 311, calcium 8.9, troponin eight, BNP 38.57, blood pressure 141/62, heart rate 72, temperature 98.0 F, O2 saturation 94% on room air. Urinalysis positive for urinary tract infection. Chest x-ray show no evidence of acute disease. Please see medication orders section in the computer. On my assessment, patient denied chest pain at this moment, no headache, no dizziness, no shortness of breath, no diaphoresis, no nausea, no vomiting, no fever, no chills. Patient was admitted for further evaluation and medical management. Past Medical History Angina, COPD, DM, High Lipids, HTN Past Surgical History Appendectomy, Cholecystectomy, Hysterectomy, Eye surgery Family History Reviewed, noncontributory to the management of this case. Past Social History The patient lives at home, denies smoking, alcohol or illicit drugs abuse. Review of Systems Constitutional: Yes: Chills, Weakness; No: Fever, Sweats, Malaise, Other Eyes: No: Pain, Vision change, Conjunctivae inflammation, Eyelid inflammation, Other, Redness ENT: No: Ear pain, Ear discharge, Nose pain, Nose discharge, Nose congestion, Mouth pain, Mouth swelling, Throat pain, Throat swelling, Other Respiratory: Shortness of breath; No: Cough, Dry, SOB with excertion, Wheezing, Hemoptysis, Pleuritic Pain, Sputum, Wheezing, Other Cardiovascular: Chest Pain; No: Palpitations, Orthopnea, Paroxysmal Noc. Dyspnea, Edema, Lt Headedness, Other Gastrointestinal: Nausea; No: Vomiting, Abdominal Pain, Diarrhea, Constipation, Melena, Hematochezia, Other Musculoskeletal: neck pain, back pain; No: other, shoulder pain, arm pain, hand pain, leg pain, foot pain Skin: No: Rash, Lesions, Jaundice, Bruising, Other Neurological: No: Weakness, Numbness, Incoordination, Change in speech, Confusion, Seizures, Other Allergies: Coded Allergies: NO KNOWN ALLERGIES (Unverified , 09/23/24) Exam Vital Signs Vital Signs Date Time Temp Pulse Resp B/P (MAP) Pulse Ox O2 Delivery O2 Flow Rate FiO2 05/02/25 23:30 98.0 71 14 141/62 (88) 94 98.0 05/02/25 18:38 Room Air General Appearance: Alert, Oriented X3, Cooperative, No acute distress HEENT: Atraumatic, PERRLA, EOMI, Mucous membr. moist/pink Respiratory: Clear to auscultation, Normal air movement Cardiovascular: Regular rate, Normal S1, Normal S2, No murmurs Abdominal: Normal bowel sounds, Soft, No tenderness, No hepatospenomegaly, No masses Extremities: No clubbing, No cyanosis, No edema, Normal pulses, No tenderness/swelling Skin: No rashes, No breakdown, No significant lesion Neuro: Normal speech, Normal tone, Sensation intact, Cranial nerves 3-12 NL, Reflexes 2+, Other (Generalized weakness) Psych/Mental Status: Mental status NL, Mood NL Labs/Xrays Labs Test 05/02/25 21:50 05/02/25 20:37 05/02/25 16:47 Range/Units Urine Color Yellow Yellow Urine Clarity Turbid H Clear Urine pH 6.0 5.0-9.0 Urine Specific [place] 1.028 1.001-1.035 Urine Protein 3+ H Negative Urine Ketones 1+ H Negative Urine Blood Trace H Negative /uL Urine Nitrite Negative Negative Urine Bilirubin Negative Negative Urine Urobilinogen Normal Negative mg/dL Urine Leukocyte Esterase 3+ Negative /uL Urine RBC 17 0 - 4 /hpf Urine Microscopic WBC 66 H 0-5 /HPF Urine Squamous Epithelial Cells Mod <5 /hpf Urine Bacteria None seen None Seen /hpf Urine Mucus Few None Seen Urine Glucose 4+ H Normal mg/dL Troponin I High Sensitivity 8 </=34 ng/L White Blood Count 8.8 4.4-10.8 10^3/uL Red Blood Count 4.39 4.0-5.20 10^6/uL Hemoglobin 13.1 12.2-16.2 g/dL Hematocrit 37.2 36.0-46.0 % Mean Corpuscular Volume 84.6 80.0-100.0 fL Mean Corpuscular Hemoglobin 29.9 28.0-32.0 pg Mean Corpuscular Hemoglobin Concent 35.3 32.0-36.0 g/dL Red Cell Distribution Width 12.8 11.8-14.3 % Platelet Count 223 140-450 10^3/uL Mean Platelet Volume 9.2 6.9-10.8 fL Neutrophils (%) (Auto) 64.6 37.0-80.0 % Lymphocytes (%) (Auto) 29.2 10.0-50.0 % Monocytes (%) (Auto) 4.3 0.0-12.0 % Eosinophils (%) (Auto) 1.6 0.0-7.0 % Basophils (%) (Auto) 0.3 0.0-2.0 % Neutrophils # (Auto) 5.7 1.6-8.6 10 ^3/uL Lymphocytes # (Auto) 2.6 0.4-5.4 10 ^3/uL Monocytes # (Auto) 0.4 0-1.3 10 ^3/uL Eosinophils # (Auto) 0.1 0-0.8 10 ^3/uL Basophils # (Auto) 0 0-0.2 10 ^3/uL Nucleated Red Blood Cells 0.1 % Sodium Level 140 136-145 mmol/L Potassium Level 3.9 3.5-5.1 mmol/L Chloride Level 102 98-107 mmol/L Carbon Dioxide Level 27 20-31 mmol/L Anion Gap 11 5-15 Blood Urea Nitrogen 24 H 9-23 mg/dL Creatinine 1.04 H 0.550-1.02 mg/dL Glomerular Filtration Rate Calc 60 >90 mL/min BUN/Creatinine Ratio 23.1 H 10.0-20.0 Serum Glucose 311 H 74-106 mg/dL Calcium Level 8.9 8.7-10.4 mg/dL B-Type Natriuretic Peptide 38.51 0-100 pg/mL PATIENT: GHISLAINE LIPSCOMBAACCT: [id number] UNIT: [id number] : 1960 LOC: ER ROOM / BED: / AGE / SEX: 64 / F ADM STATUS: REG ER SERVICE 1645 ORDERING PHYSICIAN: BIPIN GASPAR MD PROCEDURE(s): CXR2 - CHEST TWO VIEWS ROUTINE REASON: cp ORDER NUMBER(s): [id number], ACCESSION NUMBER(s): [id number] CHEST RADIOGRAPH Indication: cp Technique: Frontal and lateral view of the chest was obtained Comparison: XY CHEST TWO VIEWS ROUTINE on DOS: 09/23/24, XY CHEST TWO VIEWS ROUTINE on DOS: 07/22/24, XY CHEST PORTABLE on DOS: 10/29/23, XY CHEST XRAY 1 VIEW on DOS: 06/23/23, XR CHEST 2 VIEWS on DOS: 04/18/23 FINDINGS: Lines and Tubes: None Lungs: Clear Pleura: No effusion. No pneumothorax. Cardiomediastinal contours: Unremarkable Bones: Unremarkable IMPRESSION: 1. No evidence of acute disease. SEPSIS Sepsis Screen Date sepsis recognized/suspect: May 02, 2025 Time Sepsis recognized/suspect: 2123 Recent Procedure: No On Antibiotic Therapy: No Respiratory Rate >20: No Heart Rate >90: No Temp<36 C (96.8 F) or >38.3 C: No SBP <90 or MAP <65 mmHG: No New Acute Mental Status Change: No Is the patient on CPAP, BIPAP,: No Physician Orders Heplock Iv (05/02/25 16:45) Clinical Research Tech (05/02/25 16:45) Blood Pressure (05/02/25 16:45) Pulse Oximetry (05/02/25 16:45) Chest Two Views Routine (05/02/25 16:45) Admit (05/02/25 23:38) Nitroglycerin Sublingual (Ntrostat Subli (05/02/25 23:45) Morphine Sulfate Injection (05/02/25 23:45) Stat Ekg For Chest Pain (05/02/25 23:38) Notify Md Of Changes From Base (05/02/25 23:38) Bar Manager For 24 Hours (05/02/25 23:38) Emergency Dysrhythmia Protocol (05/02/25 23:38) Rhythm Strips Once Every Shift (05/02/25 23:38) Oxygen By Nasal Cannula (05/02/25 23:38) Vital Signs Date Time Temp Pulse Resp B/P (MAP) Pulse Ox O2 Delivery O2 Flow Rate FiO2 05/02/25 23:30 98.0 71 14 141/62 (88) 94 98.0 05/02/25 21:24 98.2 73 16 151/69 (96) 95 98.2 05/02/25 19:41 77 05/02/25 18:38 80 16 96 Room Air 05/02/25 18:38 99.1 85 16 146/66 (92) 96 99.1 05/02/25 17:35 82 05/02/25 16:48 84 05/02/25 16:38 84 05/02/25 16:37 98.8 84 18 163/59 94 98.8 Laboratory Tests Test 05/02/25 16:47 White Blood Count 8.8 10^3/uL (4.4-10.8) Medications Medications Dose Ordered Sig/Kerry Route Start Time Stop Time Status Last Admin Dose Admin Aspirin 162 mg ONCE ONCE PO 05/02/25 16:45 05/02/25 16:47 DC 05/02/25 18:41 162 MG Assessment/Plan Assessment/Plan Acute coronary syndrome Urinary tract infection Generalized weakness Diabetes mellitus with hyperglycemia Plan 1. Admit to telemetry unit 2. Breathing treatment 3. Pain control management 4. IV antibiotic management 5. Management of fluids and electrolytes 6. Consultation for hospitalist 7. Diagnostic test chest x-ray 8. DVT prophylaxis-on aspirin 9. Repeat labs CBC, CMP in a.m. 10. Home medication reviewed and reconciled 11. Continue with current medical management 12. Treatment plan discussed with patient and RN. Patient verbalized understanding. Plan discussed with: Patient, Other (RN) My Orders Orders - RADHA JANE DNP Procedure Category Date Status Time Admit ADMIT 05/02/25 Verified 23:38 Nitroglycerin [facility] 05/02/25 Verified Sublingual (Ntrostat 23:45 Morphine Sulfate [facility] 05/02/25 Verified Injection 23:45 Stat Ekg For Chest [facility] 05/02/25 Verified Pain 23:38 Notify Of Changes [facility] 05/02/25 Verified From Base 23:38 Bar Manager For [facility] 05/02/25 Verified 24 Hours 23:38 Emergency Dysrhythmia [facility] 05/02/25 Verified Protocol 23:38 Rhythm Strips Once [facility] 05/02/25 Verified Every Shift 23:38 Oxygen By Nasal RT 05/02/25 Verified Cannula 23:38 Problem List: (1) Acute coronary syndrome (2) Urinary tract infection (3) Generalized weakness (4) Diabetes mellitus with hyperglycemia Date of Service: May 02, 2025 Billing Provider: RADHA JANE DNP Common Visit Codes: [id number] INP/OBS CARE (HIGH) RADHA JANE DNP May 02, 2025 23:40
[2025-05-02] MEDS ORDERED: NITROGLYCERIN 0.4 MG SL TAB SL PRN (23:45)
[2025-05-03] VITALS (10 sets, daily range): BP systolic 127–187; BP diastolic 56–100; PULSE 65–91; RESP 16–18; TEMP 97–98; O2SAT 96–98
[2025-05-03] MEDS ORDERED: ONDANSETRON HCL 4 MG/2 ML VIAL IV PRN
[2025-05-03] MEDS ORDERED: DOCUSATE SOD 100 MG CAP PO PRN
[2025-05-03] MEDS ORDERED: DEXTROSE (50%) 50ML SYRG IV PRN
[2025-05-03] MEDS: ACETAMINOPHEN 325 MG TAB PO PRN (05:47)
[2025-05-03] MEDS: hydrALAZINE HCL 20 MG/ML VL IV PRN (05:49)
[2025-05-03 05:54] LABS: Hematocrit 36.6 % (36.0-46.0); Hemoglobin 12.7 g/dL (12.2-16.2); Mean Corpuscular Hemoglobin 29.5 pg (28.0-32.0); Mean Corpuscular Volume 85.1 fL (80.0-100.0); Nucleated Red Blood Cells % 0.0 %
[2025-05-03] MEDS: SODIUM CHLOR 0.9% PF (SALINE LOCK) 10ML VIAL/SYR IV SCH (05:56)
[2025-05-03 06:12] LABS: Alkaline Phosphatase 95 U/L (46-116); Anion Gap 10 (5-15); BUN/Creatinine Ratio 24.7 (10.0-20.0); Blood Urea Nitrogen 18 mg/dL (9-23); Calcium 9.2 mg/dL (8.7-10.4); Carbon Dioxide 26 mmol/L (20-31); Chloride 107 mmol/L (98-107); Sodium 143 mmol/L (136-145)
[2025-05-03 06:13] LABS: Total Protein 6.4 g/dL (5.7-8.2)
[2025-05-03 06:14] LABS: Bilirubin, Total 0.4 mg/dL (0.2-1.0)
[2025-05-03 06:17] LABS: Albumin 3.8 g/dL (3.2-4.8)
[2025-05-03 06:25] LABS: Alanine Aminotransferase < 9 U/L (7-40); Glucose 70 mg/dL (74-106); Potassium 2.9 mmol/L (3.5-5.1)
[2025-05-03] MEDS: POTASSIUM CHL 20 Meq TABLET PO ONE ×2 (12:21→16:51)
[2025-05-03] MEDS: ACCU-CHEK COMFORT CURVE STRIP VI SCH ×2 (12:40)
[2025-05-03] MEDS: InsuLIN REG 1unit/0.01ml Soln (100units/ml) SC SCH ×2 (12:41)
--- NOTE | 2025-05-03 16:08 | DVHPN2 ---
Subjective Was admitted for chest pain She also has UTI Changes from previous H/P or p: Changes Eyes: No Pain, No Vision change, No Conjunctivae inflammation, No Eyelid inflammation, No Other, No Redness ENT: No Ear pain, No Ear discharge, No Nose pain, No Nose discharge, No Nose congestion, No Mouth pain, No Mouth swelling, No Throat pain, No Throat swelling, No Other Cardiovascular: Chest Pain; No Palpitations, No Orthopnea, No Paroxysmal Noc. Dyspnea, No Edema, No Lt Headedness, No Other Respiratory: No Cough, No Dry; Shortness of breath; No SOB with excertion, No Wheezing, No Hemoptysis, No Pleuritic Pain, No Sputum, No Other Gastrointestinal: Nausea; No Vomiting, No Abdominal Pain, No Diarrhea, No Constipation, No Melena, No Hematochezia, No Other Musculoskeletal: No other; neck pain; No shoulder pain, No arm pain; back pain; No hand pain, No leg pain, No foot pain Skin: No Rash, No Lesions, No Jaundice, No Bruising, No Other Objective Vitals Vital Signs Date Time Temp Pulse Resp B/P (MAP) Pulse Ox O2 Delivery O2 Flow Rate FiO2 05/03/25 12:57 97.2 80 17 147/66 (93) 96 97.2 05/03/25 08:00 Room Air* 0 21 Intake/Output Intake and Output 05/03/25 07:00 Intake Total 100 ml Balance 100 ml Intake Oral 100 ml General Appearance: Alert, Oriented X3, Cooperative, No acute distress Lungs: Clear to auscultation, Normal air movement Cardiovascular: Regular rate, Normal S1, Normal S2 Abdomen: Normal bowel sounds, Soft, No tenderness Extremities: No edema Medications Current Medications Medications Dose Ordered Sig/Kerry Route Start Time Stop Time Status Last Admin Dose Admin Nitroglycerin 0.4 mg Q5MINP PRN SL 05/02/25 23:45 Morphine Sulfate 2 mg Q30M PRN IV 05/02/25 23:45 Atorvastatin Calcium 20 mg HS PO 05/03/25 22:00 Aspirin 81 mg DAILY PO 05/03/25 10:00 05/03/25 09:02 81 MG Hydralazine HCl 10 mg Q6HP PRN IV 05/03/25 00:00 05/03/25 05:49 10 MG Dextrose 50 ml UD PRN IV 05/03/25 00:00 Sodium Chloride 10 ml Q8HR IV 05/03/25 06:00 05/03/25 12:49 10 ML Acetaminophen/ Hydrocodone Bitart 1 tab Q4HP PRN PO 05/03/25 00:00 Ondansetron HCl 4 mg Q4HP PRN IV 05/03/25 00:00 Docusate Sodium 100 mg BIDPRN PRN PO 05/03/25 00:00 Acetaminophen 650 mg Q6HP PRN PO 05/03/25 00:00 05/03/25 05:47 650 MG Ceftriaxone Sodium 50 ml @ 100 mls/hr DAILY@0000 IV 05/04/25 00:00 Diagnostic Test (Pha) 1 strip ACHS 05/03/25 11:30 05/03/25 12:40 1 STRIP Insulin Human Regular ACHS SC 05/03/25 11:30 05/03/25 12:41 12 UNITS Laboratory Results Laboratory Tests 05/03/25 05:13 Chemistry Test 05/02/25 16:47 05/03/25 05:13 Calcium Level 8.9 mg/dL (8.7-10.4) 9.2 mg/dL (8.7-10.4) Albumin 3.8 g/dL (3.2-4.8) Total Protein 6.4 g/dL (5.7-8.2) Cardiac Markers Test 05/02/25 16:47 B-Type Natriuretic Peptide 38.51 pg/mL (0-100) LFT Test 05/03/25 05:13 Alanine Aminotransferase (ALT) < 9 U/L (7-40) Alkaline Phosphatase 95 U/L (46-116) Aspartate Amino Transferase (AST) 15 U/L (13-40) Total Bilirubin 0.4 mg/dL (0.2-1.0) Urinalysis Test 05/02/25 21:50 Urine Color Yellow (Yellow) Urine Clarity Turbid (Clear) H Urine pH 6.0 (5.0-9.0) Urine Specific [place] 1.028 (1.001-1.035) Urine Protein 3+ (Negative) H Urine Ketones 1+ (Negative) H Urine Blood Trace /uL (Negative) H Urine Nitrite Negative (Negative) Urine Bilirubin Negative (Negative) Urine Urobilinogen Normal mg/dL (Negative) Urine Leukocyte Esterase 3+ /uL (Negative) Urine RBC 17 /hpf (0 - 4) Urine Microscopic WBC 66 /HPF (0-5) H Urine Squamous Epithelial Cells Mod /hpf (<5) Urine Bacteria None seen /hpf (None Seen) Urine Mucus Few (None Seen) Urine Glucose 4+ mg/dL (Normal) H Assessment/Plan Assessment/Plan Chest pain Acute coronary syndrome Urinary tract infection Generalized weakness Diabetes mellitus with hyperglycemia Hypokalemia Plan IV antibiotics Rocephin Aspirin Cardiology consult Echo Replace potassium Accu-Cheks Urine culture Full code Advance directives discussed for 20 minutes Plan discussed with: Patient My Orders Orders - TIFFANY SIEGEL MD Procedure Category Date Status Time * Cardiology Consult CONS 05/03/25 Transmitted 10:24 Glucose Blood PHA 05/03/25 In Process (Accu-Chek Comfort 11:30 Insulin R (Human) PHA 05/03/25 In Process (Insulin R) 11:30 Date of Service: May 03, 2025 Billing Provider: TIFFANY SIEGEL MD Common Visit Codes: [id number] INP/OBS CARE(HIGH) Secondary Visit Codes: [id number] CARE PLAN 30 MINUTES TIFFANY SIEGEL MD May 03, 2025 16:08
[2025-05-03] MEDS: ATORVASTATIN 20 MG TAB PO SCH (22:39)
[2025-05-04] VITALS (8 sets, daily range): BP systolic 145–158; BP diastolic 64–84; PULSE 69–81; RESP 16–18; TEMP 97.1–97.9; O2SAT 94–98
[2025-05-04 06:00] LABS: Anion Gap 10 (5-15); Carbon Dioxide 25 mmol/L (20-31); Potassium 3.7 mmol/L (3.5-5.1); Sodium 142 mmol/L (136-145)
[2025-05-04 06:01] LABS: Calcium 9.3 mg/dL (8.7-10.4)
[2025-05-04 06:06] LABS: BUN/Creatinine Ratio 22.5 (10.0-20.0); Blood Urea Nitrogen 18 mg/dL (9-23)
[2025-05-04 06:07] LABS: Magnesium 1.9 mg/dL (1.6-2.6)
[2025-05-04 06:08] LABS: Chloride 107 mmol/L (98-107); Glucose 129 mg/dL (74-106)
[2025-05-04] MEDS: MORPHINE SULFATE INJ 2 MG/ml SYRG IV PRN (11:22)
--- NOTE | 2025-05-04 11:25 | ECG ---
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
--- NOTE | 2025-05-04 12:50 | DVHPN2 ---
Subjective Intermittent chest pain Changes from previous H/P or p: Changes Eyes: No Pain, No Vision change, No Conjunctivae inflammation, No Eyelid inflammation, No Other, No Redness ENT: No Ear pain, No Ear discharge, No Nose pain, No Nose discharge, No Nose congestion, No Mouth pain, No Mouth swelling, No Throat pain, No Throat swelling, No Other Cardiovascular: Chest Pain; No Palpitations, No Orthopnea, No Paroxysmal Noc. Dyspnea, No Edema, No Lt Headedness, No Other Respiratory: No Cough, No Dry; Shortness of breath; No SOB with excertion, No Wheezing, No Hemoptysis, No Pleuritic Pain, No Sputum, No Other Gastrointestinal: Nausea; No Vomiting, No Abdominal Pain, No Diarrhea, No Constipation, No Melena, No Hematochezia, No Other Musculoskeletal: No other; neck pain; No shoulder pain, No arm pain; back pain; No hand pain, No leg pain, No foot pain Skin: No Rash, No Lesions, No Jaundice, No Bruising, No Other Objective Vitals Vital Signs Date Time Temp Pulse Resp B/P (MAP) Pulse Ox O2 Delivery O2 Flow Rate FiO2 05/04/25 11:52 75 12 152/69 05/04/25 08:33 97.4 98 97.4 05/03/25 20:10 Room Air* 0 21 Intake/Output Intake and Output 05/04/25 07:00 Intake Total 800 ml Balance 800 ml Intake Oral 750 ml IV Total 50 ml # Voids 7 # Bowel Movements 1 General Appearance: Alert, Oriented X3, Cooperative, No acute distress Lungs: Clear to auscultation, Normal air movement Cardiovascular: Regular rate, Normal S1, Normal S2 Abdomen: Normal bowel sounds, Soft, No tenderness Extremities: No edema Medications Current Medications Medications Dose Ordered Sig/Kerry Route Start Time Stop Time Status Last Admin Dose Admin Nitroglycerin 0.4 mg Q5MINP PRN SL 05/02/25 23:45 Morphine Sulfate 2 mg Q30M PRN IV 05/02/25 23:45 05/04/25 11:22 2 MG Atorvastatin Calcium 20 mg HS PO 05/03/25 22:00 05/03/25 22:39 20 MG Aspirin 81 mg DAILY PO 05/03/25 10:00 05/04/25 10:48 81 MG Hydralazine HCl 10 mg Q6HP PRN IV 05/03/25 00:00 05/03/25 17:13 10 MG Dextrose 50 ml UD PRN IV 05/03/25 00:00 Sodium Chloride 10 ml Q8HR IV 05/03/25 06:00 05/04/25 06:12 10 ML Acetaminophen/ Hydrocodone Bitart 1 tab Q4HP PRN PO 05/03/25 00:00 Ondansetron HCl 4 mg Q4HP PRN IV 05/03/25 00:00 Docusate Sodium 100 mg BIDPRN PRN PO 05/03/25 00:00 Acetaminophen 650 mg Q6HP PRN PO 05/03/25 00:00 05/03/25 05:47 650 MG Ceftriaxone Sodium 50 ml @ 100 mls/hr DAILY@0000 IV 05/04/25 00:00 05/03/25 23:56 100 MLS/HR Diagnostic Test (Pha) 1 strip ACHS 05/03/25 11:30 05/04/25 11:47 1 STRIP Insulin Human Regular ACHS SC 05/03/25 11:30 05/04/25 11:48 12 UNITS Laboratory Results Laboratory Tests 05/03/25 05:13 05/04/25 05:12 Chemistry Test 05/04/25 05:12 Calcium Level 9.3 mg/dL (8.7-10.4) Magnesium Level 1.9 mg/dL (1.6-2.6) Urinalysis Test 05/02/25 21:50 Urine Color Yellow (Yellow) Urine Clarity Turbid (Clear) H Urine pH 6.0 (5.0-9.0) Urine Specific [place] 1.028 (1.001-1.035) Urine Protein 3+ (Negative) H Urine Ketones 1+ (Negative) H Urine Blood Trace /uL (Negative) H Urine Nitrite Negative (Negative) Urine Bilirubin Negative (Negative) Urine Urobilinogen Normal mg/dL (Negative) Urine Leukocyte Esterase 3+ /uL (Negative) Urine RBC 17 /hpf (0 - 4) Urine Microscopic WBC 66 /HPF (0-5) H Urine Squamous Epithelial Cells Mod /hpf (<5) Urine Bacteria None seen /hpf (None Seen) Urine Mucus Few (None Seen) Urine Glucose 4+ mg/dL (Normal) H Microbiology Microbiology Date/Time Source Procedure Growth Status 05/02/25 21:50 Voided Urine Urine Culture - Preliminary Resulted Assessment/Plan Assessment/Plan Chest pain Acute coronary syndrome Urinary tract infection Generalized weakness Diabetes mellitus with hyperglycemia Hypokalemia Plan IV antibiotics Rocephin Aspirin Cardiology consult Echo Replace potassium Accu-Cheks Urine culture Full code Advance directives discussed for 20 minutes 05/04/2025: IV Rocephin Cardiology consult Monitor closely Rest of the management will depend on the hospital course Plan discussed with: Patient Date of Service: May 04, 2025 Billing Provider: TIFFANY SIEGEL MD Common Visit Codes: [id number] INP/OBS CARE(HIGH) TIFFANY SIEGEL MD May 04, 2025 12:50
[2025-05-05] VITALS (8 sets, daily range): BP systolic 128–178; BP diastolic 53–76; PULSE 78–88; RESP 17–20; TEMP 97.8–98.5; O2SAT 93–97
[2025-05-05] MEDS: HYDROcodone-ACET 5/325MG TAB PO PRN (10:43)
--- NOTE | 2025-05-05 12:39 | ECG ---
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
--- NOTE | 2025-05-05 12:55 | DVHPN2 ---
Subjective No new complaints Changes from previous H/P or p: Changes Eyes: No Pain, No Vision change, No Conjunctivae inflammation, No Eyelid inflammation, No Other, No Redness ENT: No Ear pain, No Ear discharge, No Nose pain, No Nose discharge, No Nose congestion, No Mouth pain, No Mouth swelling, No Throat pain, No Throat swelling, No Other Cardiovascular: Chest Pain; No Palpitations, No Orthopnea, No Paroxysmal Noc. Dyspnea, No Edema, No Lt Headedness, No Other Respiratory: No Cough, No Dry; Shortness of breath; No SOB with excertion, No Wheezing, No Hemoptysis, No Pleuritic Pain, No Sputum, No Other Gastrointestinal: Nausea; No Vomiting, No Abdominal Pain, No Diarrhea, No Constipation, No Melena, No Hematochezia, No Other Musculoskeletal: No other; neck pain; No shoulder pain, No arm pain; back pain; No hand pain, No leg pain, No foot pain Skin: No Rash, No Lesions, No Jaundice, No Bruising, No Other Objective Vitals Vital Signs Date Time Temp Pulse Resp B/P (MAP) Pulse Ox O2 Delivery O2 Flow Rate FiO2 05/05/25 10:43 153/78 05/05/25 09:00 98.5 80 19 95 98.5 05/05/25 07:35 Room Air* 0 21 Intake/Output Intake and Output 05/05/25 07:00 Intake Total 1250 ml Balance 1250 ml Intake Oral 1200 ml IV Total 50 ml # Voids 6 # Bowel Movements 1 General Appearance: Alert, Oriented X3, Cooperative, No acute distress Lungs: Clear to auscultation, Normal air movement Cardiovascular: Regular rate, Normal S1, Normal S2 Abdomen: Normal bowel sounds, Soft, No tenderness Extremities: No edema Medications Current Medications Medications Dose Ordered Sig/Kerry Route Start Time Stop Time Status Last Admin Dose Admin Nitroglycerin 0.4 mg Q5MINP PRN SL 05/02/25 23:45 Morphine Sulfate 2 mg Q30M PRN IV 05/02/25 23:45 05/04/25 11:22 2 MG Atorvastatin Calcium 20 mg HS PO 05/03/25 22:00 05/04/25 21:20 20 MG Aspirin 81 mg DAILY PO 05/03/25 10:00 05/05/25 10:02 81 MG Hydralazine HCl 10 mg Q6HP PRN IV 05/03/25 00:00 05/05/25 10:43 10 MG Dextrose 50 ml UD PRN IV 05/03/25 00:00 Sodium Chloride 10 ml Q8HR IV 05/03/25 06:00 05/05/25 05:01 10 ML Acetaminophen/ Hydrocodone Bitart 1 tab Q4HP PRN PO 05/03/25 00:00 05/05/25 10:43 1 TAB Ondansetron HCl 4 mg Q4HP PRN IV 05/03/25 00:00 Docusate Sodium 100 mg BIDPRN PRN PO 05/03/25 00:00 Acetaminophen 650 mg Q6HP PRN PO 05/03/25 00:00 05/03/25 05:47 650 MG Ceftriaxone Sodium 50 ml @ 100 mls/hr DAILY@0000 IV 05/04/25 00:00 05/04/25 23:18 100 MLS/HR Diagnostic Test (Pha) 1 strip ACHS 05/03/25 11:30 05/05/25 11:52 1 STRIP Insulin Human Regular ACHS SC 05/03/25 11:30 05/05/25 11:53 12 UNITS Laboratory Results Laboratory Tests 05/03/25 05:13 05/04/25 05:12 Urinalysis Test 05/02/25 21:50 Urine Color Yellow (Yellow) Urine Clarity Turbid (Clear) H Urine pH 6.0 (5.0-9.0) Urine Specific [place] 1.028 (1.001-1.035) Urine Protein 3+ (Negative) H Urine Ketones 1+ (Negative) H Urine Blood Trace /uL (Negative) H Urine Nitrite Negative (Negative) Urine Bilirubin Negative (Negative) Urine Urobilinogen Normal mg/dL (Negative) Urine Leukocyte Esterase 3+ /uL (Negative) Urine RBC 17 /hpf (0 - 4) Urine Microscopic WBC 66 /HPF (0-5) H Urine Squamous Epithelial Cells Mod /hpf (<5) Urine Bacteria None seen /hpf (None Seen) Urine Mucus Few (None Seen) Urine Glucose 4+ mg/dL (Normal) H Microbiology Microbiology Date/Time Source Procedure Growth Status 05/02/25 21:50 Voided Urine Urine Culture - Final Complete Assessment/Plan Assessment/Plan Chest pain Acute coronary syndrome Urinary tract infection Generalized weakness Diabetes mellitus with hyperglycemia Hypokalemia Plan IV antibiotics Rocephin Aspirin Cardiology consult Echo Replace potassium Accu-Cheks Urine culture Full code Advance directives discussed for 20 minutes 05/04/2025: IV Rocephin Cardiology consult Monitor closely Rest of the management will depend on the hospital course 05/05/25: Add Lantus Cardiology consult Dr. Tip Rosenberg Plan discussed with: Patient My Orders Orders - TIFFANY SIEGEL MD Procedure Category Date Status Time Dietary NOTICE 05/05/25 Transmitted Recommendations 12:03 Insulin Lantus PHA 05/05/25 Transmitted (Glargine) (Lantus) 22:00 Insulin Lantus PHA 05/05/25 Transmitted (Glargine) (Lantus) 13:00 Date of Service: May 05, 2025 Billing Provider: TIFFANY SIEGEL MD Common Visit Codes: [id number] INP/OBS CARE(HIGH) TIFFANY SIEGEL MD May 05, 2025 12:55
[2025-05-05] MEDS: INSULIN LANTUS (GLARGINE) 1 /0.01ml (100units/ml) SC ONE (13:00)
--- NOTE | 2025-05-05 14:06 | DVHPN2 ---
Progress Note - Dictate Date Seen: May 05, 2025 Medical Necessity Reason Pt with a Central, PICC or Fol: No Subjective PT WITH CHEST PAIN [facility] 10/08 PROCEDURES PERFORMED: * Left heart catheterization. * Conscious sedation. * Right iliac angiography. * Ventriculogram. DESCRIPTION OF PROCEDURE: The patient was prepped and draped in a sterile condition. A 1% Xylocaine used to anesthetize the right groin. Using a Cook needle, right femoral artery was engaged. With Seldinger technique, a 6-[place] sheath in the right femoral artery. Using 6-[place] JL4 catheter and 6-[place] JR4 catheter, selective left and right coronary angiographies were performed. Using 6-[place] pigtail catheter, ventriculogram was done. There were no complications. The patient tolerated the procedure well. Right femoral artery was closed using the Angio-Seal device. RESULTS: * Left main normal. * Left anterior descending artery: Mild intimal irregularity without any flow restrictive lesion. * Circumflex: Mild intimal irregularity without any flow restrictive lesion. * Right coronary artery: Mild intimal irregularity without any flow restrictive lesion. * Ventriculogram shows normal LVEF with an estimated EF of greater than 60% with an LVEDP of 18-20 mmHg with no gradient across the aortic valve. CONCLUSION: The patient with normal coronary anatomy; however, the patient does have high LVEDP secondary to high blood pressure and diastolic dysfunction. Aggressive antihypertensive therapy should be initiated. The patient who is 64 years old with history of hypertension, hyperlipidemia. Now presents with signs and symptom complex of increasing chest pain, shortness of breath and TIA-like symptoms. Remote history of tobacco use, but discontinued smoking some 30 years ago. Significant for hyperlipidemia as well. History of diabetes with diabetic neuropathy, vasculopathy, nephropathy. Because of the classic nature of chest pain, Plavix was initiated because of the abnormal stress test she had. The patient was started on Plavix, but had to stop the Plavix because the patient was having epistaxis. She also started Jardiance as well. She is on Crestor as well as Lantus insulin. She has a strong family history of coronary artery disease. Mother of coronary artery disease. REVIEW OF SYSTEMS: She denies any syncopal episode. No melena, hematochezia, hematemesis, hemoptysis. She does have epistaxis with antiplatelet therapy. She denies any syncopal episode. No history of seizure disorder. vital signs Vital Sign Date Time Temp Pulse Resp B/P (MAP) Pulse Ox O2 Delivery O2 Flow Rate FiO2 05/05/25 10:43 153/78 05/05/25 09:00 98.5 80 19 95 98.5 05/05/25 07:35 Room Air* 0 21 Total Intake and Output 05/04/25 05/04/25 05/05/25 15:00 23:00 07:00 Intake Total 750 ml 500 ml Balance 750 ml 500 ml medications Current Medications Medications Dose Ordered Sig/Kerry Route Start Time Stop Time Status Last Admin Dose Admin Nitroglycerin 0.4 mg Q5MINP PRN SL 05/02/25 23:45 Morphine Sulfate 2 mg Q30M PRN IV 05/02/25 23:45 05/04/25 11:22 2 MG Atorvastatin Calcium 20 mg HS PO 05/03/25 22:00 05/04/25 21:20 20 MG Aspirin 81 mg DAILY PO 05/03/25 10:00 05/05/25 10:02 81 MG Hydralazine HCl 10 mg Q6HP PRN IV 05/03/25 00:00 05/05/25 10:43 10 MG Dextrose 50 ml UD PRN IV 05/03/25 00:00 Sodium Chloride 10 ml Q8HR IV 05/03/25 06:00 05/05/25 05:01 10 ML Acetaminophen/ Hydrocodone Bitart 1 tab Q4HP PRN PO 05/03/25 00:00 05/05/25 10:43 1 TAB Ondansetron HCl 4 mg Q4HP PRN IV 05/03/25 00:00 Docusate Sodium 100 mg BIDPRN PRN PO 05/03/25 00:00 Acetaminophen 650 mg Q6HP PRN PO 05/03/25 00:00 05/03/25 05:47 650 MG Ceftriaxone Sodium 50 ml @ 100 mls/hr DAILY@0000 IV 05/04/25 00:00 05/04/25 23:18 100 MLS/HR Diagnostic Test (Pha) 1 strip ACHS 05/03/25 11:30 05/05/25 11:52 1 STRIP Insulin Human Regular ACHS SC 05/03/25 11:30 05/05/25 11:53 12 UNITS Insulin Glargine 10 units BID@0700,2200 SC 05/05/25 22:00 objective VITAL SIGNS: Blood pressure is 134/80, pulse of 70, O2 saturation 98% on room air. HEENT: Pupils are reactive. Funduscopic exam shows no AV nicking, no exudates, no papilledema. Sclerae are anicteric. Extraocular muscles are intact. Oral mucosa moist. Posterior pharynx without any exudate. NECK: No JVD appreciated. Carotid pulses are 2+ symmetrical. Normal upstroke and contour. No cervical adenopathy. No supraclavicular adenopathy. PULMONARY: Clear to auscultation in all lung borrero. CARDIOVASCULAR: Regular rate without S3, without S4. PMI is not displaced. ABDOMEN: Soft, nontender, normal bowel sounds. EXTREMITIES: 1+ pulses bilaterally. NEUROLOGIC: The patient is intact. laboratory and microbiology Laboratory Tests 05/04/25 05:12 05/03/25 05:13 Test 05/04/25 05:12 Range/Units Serum Glucose 129 H 74-106 mg/dL Problem List PT WITH NORMAL CORONARIES WITH NL EF Assessment/Plan NON CARDIAC ISSUES Dietary Evaluation Review Comments: 1) CCHO 60+ cardiac diet 2) Refer [employer] for diabetes education Expected Outcomes/Goals: Lab values to improve Fu 3-5 days Plan discussed with: Patient LONNIE ANDERSEN MD May 05, 2025 14:06
--- NOTE | 2025-05-05 14:08 | DVHPN2 ---
Progress Note - Dictate Medical Necessity Reason Pt with a Central, PICC or Fol: No Subjective PT WITH CHEST PAIN [facility] 10/08 PROCEDURES PERFORMED: * Left heart catheterization. * Conscious sedation. * Right iliac angiography. * Ventriculogram. DESCRIPTION OF PROCEDURE: The patient was prepped and draped in a sterile condition. A 1% Xylocaine used to anesthetize the right groin. Using a Cook needle, right femoral artery was engaged. With Seldinger technique, a 6-Andorran sheath in the right femoral artery. Using 6-Andorran JL4 catheter and 6-Andorran JR4 catheter, selective left and right coronary angiographies were performed. Using 6-Andorran pigtail catheter, ventriculogram was done. There were no complications. The patient tolerated the procedure well. Right femoral artery was closed using the Angio-Seal device. RESULTS: * Left main normal. * Left anterior descending artery: Mild intimal irregularity without any flow restrictive lesion. * Circumflex: Mild intimal irregularity without any flow restrictive lesion. * Right coronary artery: Mild intimal irregularity without any flow restrictive lesion. * Ventriculogram shows normal LVEF with an estimated EF of greater than 60% with an LVEDP of 18-20 mmHg with no gradient across the aortic valve. CONCLUSION: The patient with normal coronary anatomy; however, the patient does have high LVEDP secondary to high blood pressure and diastolic dysfunction. Aggressive antihypertensive therapy should be initiated. The patient who is 64 years old with history of hypertension, hyperlipidemia. Now presents with signs and symptom complex of increasing chest pain, shortness of breath and TIA-like symptoms. Significant for hyperlipidemia as well. History of diabetes with diabetic neuropathy, vasculopathy, nephropathy. Because of the classic nature of chest pain, Plavix was initiated because of the abnormal stress test she had. The patient was started on Plavix, but had to stop the Plavix because the patient was having epistaxis. She also started Jardiance as well. She is on Crestor as well as Lantus insulin. She has a strong family history of coronary artery disease. Mother of coronary artery disease. REVIEW OF SYSTEMS: She denies any syncopal episode. No melena, hematochezia, hematemesis, hemoptysis. She does have epistaxis with antiplatelet therapy. She denies any syncopal episode. No history of seizure disorder. vital signs Vital Sign Date Time Temp Pulse Resp B/P (MAP) Pulse Ox O2 Delivery O2 Flow Rate FiO2 05/05/25 10:43 153/78 05/05/25 09:00 98.5 80 19 95 98.5 05/05/25 07:35 Room Air* 0 21 Total Intake and Output 05/04/25 05/04/25 05/05/25 15:00 23:00 07:00 Intake Total 750 ml 500 ml Balance 750 ml 500 ml medications Current Medications Medications Dose Ordered Sig/Kerry Route Start Time Stop Time Status Last Admin Dose Admin Nitroglycerin 0.4 mg Q5MINP PRN SL 05/02/25 23:45 Morphine Sulfate 2 mg Q30M PRN IV 05/02/25 23:45 05/04/25 11:22 2 MG Atorvastatin Calcium 20 mg HS PO 05/03/25 22:00 05/04/25 21:20 20 MG Aspirin 81 mg DAILY PO 05/03/25 10:00 05/05/25 10:02 81 MG Hydralazine HCl 10 mg Q6HP PRN IV 05/03/25 00:00 05/05/25 10:43 10 MG Dextrose 50 ml UD PRN IV 05/03/25 00:00 Sodium Chloride 10 ml Q8HR IV 05/03/25 06:00 05/05/25 05:01 10 ML Acetaminophen/ Hydrocodone Bitart 1 tab Q4HP PRN PO 05/03/25 00:00 05/05/25 10:43 1 TAB Ondansetron HCl 4 mg Q4HP PRN IV 05/03/25 00:00 Docusate Sodium 100 mg BIDPRN PRN PO 05/03/25 00:00 Acetaminophen 650 mg Q6HP PRN PO 05/03/25 00:00 05/03/25 05:47 650 MG Ceftriaxone Sodium 50 ml @ 100 mls/hr DAILY@0000 IV 05/04/25 00:00 05/04/25 23:18 100 MLS/HR Diagnostic Test (Pha) 1 strip ACHS 05/03/25 11:30 05/05/25 11:52 1 STRIP Insulin Human Regular ACHS SC 05/03/25 11:30 05/05/25 11:53 12 UNITS Insulin Glargine 10 units BID@0700,2200 SC 05/05/25 22:00 objective VITAL SIGNS: Blood pressure is 134/80, pulse of 70, O2 saturation 98% on room air. HEENT: Pupils are reactive. Funduscopic exam shows no AV nicking, no exudates, no papilledema. Sclerae are anicteric. Extraocular muscles are intact. Oral mucosa moist. Posterior pharynx without any exudate. NECK: No JVD appreciated. Carotid pulses are 2+ symmetrical. Normal upstroke and contour. No cervical adenopathy. No supraclavicular adenopathy. PULMONARY: Clear to auscultation in all lung borrero. CARDIOVASCULAR: Regular rate without S3, without S4. PMI is not displaced. ABDOMEN: Soft, nontender, normal bowel sounds. EXTREMITIES: 1+ pulses bilaterally. NEUROLOGIC: The patient is intact. laboratory and microbiology Laboratory Tests 05/04/25 05:12 05/03/25 05:13 Test 05/04/25 05:12 Range/Units Serum Glucose 129 H 74-106 mg/dL Problem List PT WITH NORMAL CORONARIES WITH NL EF DIABETES HTN Assessment/Plan NON CARDIAC ISSUES Dietary Evaluation Review Comments: 1) CCHO 60+ cardiac diet 2) Refer [employer] for diabetes education Expected Outcomes/Goals: Lab values to improve Fu 3-5 days Plan discussed with: Patient LONNIE ANDERSEN MD May 05, 2025 14:08
[2025-05-05] MEDS ORDERED: CIPR-273 PO (14:25)
--- NOTE | 2025-05-05 14:28 | DVHDS2 ---
Discharge Summary Date of Admission May 02, 2025 at 23:38 Date of Discharge: May 05, 2025 Labs/Diagnostic Data: Laboratory Results Test 05/05/25 11:42 05/04/25 05:12 05/03/25 05:13 05/02/25 21:50 POC Glucose 327 mg/dl (70-106) Sodium Level 142 mmol/L (136-145) Potassium Level 3.7 mmol/L (3.5-5.1) Chloride Level 107 mmol/L (98-107) Carbon Dioxide Level 25 mmol/L (20-31) Anion Gap 10 (5-15) Blood Urea Nitrogen 18 mg/dL (9-23) Creatinine 0.80 mg/dL (0.550-1.02) Glomerular Filtration Rate Calc 83 mL/min (>90) BUN/Creatinine Ratio 22.5 (10.0-20.0) Serum Glucose 129 mg/dL (74-106) Calcium Level 9.3 mg/dL (8.7-10.4) Magnesium Level 1.9 mg/dL (1.6-2.6) White Blood Count 7.1 10^3/uL (4.4-10.8) Red Blood Count 4.30 10^6/uL (4.0-5.20) Hemoglobin 12.7 g/dL (12.2-16.2) Hematocrit 36.6 % (36.0-46.0) Mean Corpuscular Volume 85.1 fL (80.0-100.0) Mean Corpuscular Hemoglobin 29.5 pg (28.0-32.0) Mean Corpuscular Hemoglobin Concent 34.7 g/dL (32.0-36.0) Red Cell Distribution Width 13.3 % (11.8-14.3) Platelet Count 185 10^3/uL (140-450) Mean Platelet Volume 8.7 fL (6.9-10.8) Neutrophils (%) (Auto) 38.7 % (37.0-80.0) Lymphocytes (%) (Auto) 50.6 % (10.0-50.0) Monocytes (%) (Auto) 7.0 % (0.0-12.0) Eosinophils (%) (Auto) 3.5 % (0.0-7.0) Basophils (%) (Auto) 0.2 % (0.0-2.0) Neutrophils # (Auto) 2.8 10 ^3/uL (1.6-8.6) Lymphocytes # (Auto) 3.6 10 ^3/uL (0.4-5.4) Monocytes # (Auto) 0.5 10 ^3/uL (0-1.3) Eosinophils # (Auto) 0.3 10 ^3/uL (0-0.8) Basophils # (Auto) 0 10 ^3/uL (0-0.2) Nucleated Red Blood Cells 0.0 % Total Bilirubin 0.4 mg/dL (0.2-1.0) Aspartate Amino Transferase (AST) 15 U/L (13-40) Alanine Aminotransferase (ALT) < 9 U/L (7-40) Alkaline Phosphatase 95 U/L (46-116) Total Protein 6.4 g/dL (5.7-8.2) Albumin 3.8 g/dL (3.2-4.8) Urine Color Yellow (Yellow) Urine Clarity Turbid (Clear) Urine pH 6.0 (5.0-9.0) Urine Specific [place] 1.028 (1.001-1.035) Urine Protein 3+ (Negative) Urine Ketones 1+ (Negative) Urine Blood Trace /uL (Negative) Urine Nitrite Negative (Negative) Urine Bilirubin Negative (Negative) Urine Urobilinogen Normal mg/dL (Negative) Urine Leukocyte Esterase 3+ /uL (Negative) Urine RBC 17 /hpf (0 - 4) Urine Microscopic WBC 66 /HPF (0-5) Urine Squamous Epithelial Cells Mod /hpf (<5) Urine Bacteria None seen /hpf (None Seen) Urine Mucus Few (None Seen) Urine Glucose 4+ mg/dL (Normal) Test 05/02/25 20:37 05/02/25 16:47 Troponin I High Sensitivity 8 ng/L (</=34) B-Type Natriuretic Peptide 38.51 pg/mL (0-100) Other Laboratory Tests 05/04/25 05:12 05/03/25 05:13 Brief Hx & Hospital Course: Final diagnoses Chest pain Acute coronary syndrome, negative No coronary artery disease Acute [place] was ruled out Urinary tract infection Generalized weakness Diabetes mellitus with hyperglycemia Hypokalemia She was ruled out for myocardial infarction Her chest pain was atypical mostly pleuritic EKG with chest pain was normal Dr. Whelan has seen her, he stated that she has normal coronary arteries No need for further workup Discharge patient home on Cipro for 5 days for the UTI Resume other home medications Follow up with the primary care physician as soon as possible Condition at Discharge: Stable Final Diagnosis/Problems List Chest pain Acute coronary syndrome, negative No coronary artery disease Acute [place] was ruled out Urinary tract infection Generalized weakness Diabetes mellitus with hyperglycemia Hypokalemia Discharge Disposition: Home SNF Discharge Will this Physician continue t: No Discharge Instruct/Medications Diet: Cardiac 2g Na,low cholest Activity: No Restrictions, As Tolerated Follow Up/Referral: PCP as soon as possible Medications: Same home medications Cipro 250 mg twice a day for 5 days Scheduled Cholecalciferol (Vitamin D3), 1 TAB PO DAILY, (Reported) Ciprofloxacin Hcl (Cipro), 250 MG PO BID Empagliflozin (Jardiance), 25 MG PO DAILY, (Reported) Insulin Glargine (Lantus), 20 UNIT SC QAM, (Reported) Rosuvastatin Calcium (Crestor), 1 TAB PO DAILY, (Reported) Semaglutide (Ozempic), 0.5 MG SC QWEEKLY, (Reported) Discontinued Medications Clopidogrel Bisulfate (Plavix), 1 TAB PO DAILY, (Reported) Pregabalin (Pregabalin), 50 MG PO BID, (Reported) Discharge Statement: "Patient was advised to return to the ER or call 911 if any headaches, dizziness, shortness of breath, chest pain, abdominal pain, bleeding, fevers, or worsening of medical condition. Patient was counseled about treatment plan, medications, possible side effects, patientverbalized understanding. All questions were answered to the best of my ability. This discharge took greater then 30 minutes in planning, reviewing documentation, counseling the patient, and discussing with other team members." ASSESSMENT ASSESSMENT Assessment Chest pain Acute coronary syndrome, negative No coronary artery disease Acute [place] was ruled out Urinary tract infection Generalized weakness Diabetes mellitus with hyperglycemia Hypokalemia Date of Service: May 05, 2025 Billing Provider: TIFFANY SIEGEL MD Common Visit Codes: 93605-HDG/OBS DISCH DAY >30min TIFFANY SIEGEL MD May 05, 2025 14:28
[2025-05-05] MEDS ORDERED: INSULIN LANTUS (GLARGINE) 1 /0.01ml (100units/ml) SC SCH (22:00)
== END 2025-05-05 17:05 | disposition home or self-care (01) | DRG 206 ==
LOC: ER 16:34 → OVERFLOW 23:38 → TELE-CENTR 05-03 03:45
PROVIDERS: ADMIT Internal Medicine Geriatric Medicine; ATTEND Internal Medicine Geriatric Medicine
DX: M94.0 Chondrocostal junction syndrome [Tietze] (principal); I24.9 Acute ischemic heart disease, unspecified; N39.0 Urinary tract infection, site not specified; E87.6 Hypokalemia; E11.65 Type 2 diabetes mellitus with hyperglycemia; I10 Essential (primary) hypertension; E78.5 Hyperlipidemia, unspecified; E11.40 Type 2 diabetes mellitus with diabetic neuropathy, unspecified; J44.9 Chronic obstructive pulmonary disease, unspecified; Z79.84 Long term (current) use of oral hypoglycemic drugs; Z79.4 Long term (current) use of insulin; Z90.49 Acquired absence of other specified parts of digestive tract; Z90.710 Acquired absence of both cervix and uterus; Z82.49 Family history of ischemic heart disease and other diseases of the circulatory system; Z87.891 Personal history of nicotine dependence
CPT/HCPCS: 36415; 71046; 80048; 80053; 81001; 82962; 83735; 83880; 84484; 85025; 87086; 93005; 96365; 99291; G0378; J1815